=== PATIENT | male | born 1940 | race Caucasian/White ===

== ENCOUNTER → 2019-10-14 14:46 | Outpatient (BNVA) | payer MEDICARE, OTHER, SELFPAY | PROVIDERS: Family Provider Family Medicine; PCP Family Medicine; Visit Provider Internal Medicine Cardiovascular Disease | DX: I50.42 Chronic combined systolic (congestive) and diastolic (congestive) heart failure (principal); R06.02 Shortness of breath; I48.19 Other persistent atrial fibrillation; I42.0 Dilated cardiomyopathy; N18.3 Chronic kidney disease, stage 3 (moderate); I35.1 Nonrheumatic aortic (valve) insufficiency | CPT/HCPCS: 80048; 83880 ==

== ENCOUNTER → 2019-11-04 10:40 | Outpatient (BNVA) | payer MEDICARE, OTHER, SELFPAY | PROVIDERS: Family Provider Family Medicine; PCP Family Medicine; Visit Provider Internal Medicine Cardiovascular Disease | DX: I50.9 Heart failure, unspecified (principal); I48.91 Unspecified atrial fibrillation | CPT/HCPCS: 80048; 80061; 83880 ==

== ENCOUNTER → 2019-11-14 10:53 | Outpatient (BNVA) | payer MEDICARE, OTHER, SELFPAY | PROVIDERS: Family Provider Family Medicine; PCP Family Medicine; Visit Provider Internal Medicine Cardiovascular Disease | DX: I50.9 Heart failure, unspecified (principal); N18.9 Chronic kidney disease, unspecified | CPT/HCPCS: 80048; 83880 ==

== ENCOUNTER → 2020-03-11 16:43 | Outpatient (BNVA) | payer MEDICARE, OTHER, SELFPAY | PROVIDERS: Family Provider Family Medicine; PCP Family Medicine; Visit Provider Internal Medicine Cardiovascular Disease | DX: I48.19 Other persistent atrial fibrillation (principal); I42.0 Dilated cardiomyopathy; R06.02 Shortness of breath; I50.33 Acute on chronic diastolic (congestive) heart failure; N18.3 Chronic kidney disease, stage 3 (moderate); I35.1 Nonrheumatic aortic (valve) insufficiency | CPT/HCPCS: 80048; 83880 ==

== ENCOUNTER → 2020-05-07 09:25 | Outpatient (BNVA) | payer MEDICARE, OTHER, SELFPAY | PROVIDERS: Family Provider Family Medicine; PCP Family Medicine; Visit Provider Internal Medicine Cardiovascular Disease | DX: I42.0 Dilated cardiomyopathy (principal); I48.19 Other persistent atrial fibrillation; I50.42 Chronic combined systolic (congestive) and diastolic (congestive) heart failure; N18.3 Chronic kidney disease, stage 3 (moderate); I35.1 Nonrheumatic aortic (valve) insufficiency | CPT/HCPCS: 80048; 80061; 83880 ==

== ENCOUNTER 2020-06-03 12:37 | Outpatient (CLI) | payer MEDICARE, OTHER, SELFPAY ==
--- NOTE | 2020-06-03 13:30 | USCV_ITS ---
Raymond Smith Age: 80 Gender: M : 1940 Exam Date: 06/03/2020 13:34 Ordering Phys: Chris Olsen MD ([email or web address]) Technologist: Adriana Martini Exam Location: [facility] [place] Indication: CARDIOMYOPATHY BP: / HR: 64 Rhythm: Sinus Technical Quality: Adequate MEASUREMENTS (Male / Female) Normal Values 2D ECHO LV Ejection Fraction MOD 2C 49.9 % LV Ejection Fraction 2C AL 49.6 % LA Diameter 5.4 cm LA Width 4.3 cm LA Height 6.2 cm RA Width 4.4 cm RA Height 5.0 cm M-MODE LV Diastolic Diameter MM 7.5 cm 4.2 - 5.9 / 3.9 - 5.3 cm LV Systolic Diameter MM 4.7 cm LV Ejection Fraction MM Teich 66.3 % IVS Diastolic Thickness MM 1.2 cm 0.6 - 1.0 / 0.6 - 0.9 cm IVS Systolic Thickness MM 1.7 cm LVPW Diastolic Thickness MM 1.1 cm 0.6 - 1.0 / 0.6 - 0.9 cm LVPW Systolic Thickness MM 1.8 cm Aortic Annulus Diameter 4.3 cm LA Ao Ratio MM 1.3 MV E Point Septal Separation 1.2 cm DOPPLER AV Peak Velocity 147.0 cm/s LVOT Peak Velocity 92.0 cm/s MV Peak Velocity 89.0 cm/s MV Area PHT 7.3 cm squared Mitral E to A Ratio 5.2 MV E' Velocity 59.5 cm/s Mitral E to MV E' Ratio 14.2 Mitral E to LV E' Lateral Ratio 11.4 Mitral E to LV E' Septal Ratio 19.1 TR Peak Velocity 155.0 cm/s TR Peak Gradient 9.6 mmHg Right Atrial Pressure 3.0 mmHg Pulmonary Artery Systolic Pressu 12.6 mmHg PV Peak Velocity 82.0 cm/s RV Acceleration Time 0.1 s FINDINGS Left Ventricle Diffuse hypokinesia of the left ventricle with ejection fraction of 45% Right Ventricle Normal right ventricular size and systolic function. Right Atrium Mild to moderate right atrial lodgment Left Atrium Mild to moderate left atrial enlargement Mitral Valve Trace mitral valve regurgitation. Aortic Valve Moderate aortic valve regurgitation. Tricuspid Valve Mild tricuspid valve regurgitation. Pulmonic Valve No gross abnormalities noted Pericardium No pericardial effusion. Aorta Normal aortic annulus size. CONCLUSIONS Diffuse hypokinesia of the left ventricle with ejection fraction of 45%. Mild to moderate biatrial enlargement. Moderate aortic valve regurgitation. Mild tricuspid valve regurgitation. There is no pericardial effusion. There are no intracardiac masses. Compared to the previous study from 06/10/2019, there is improvement of the LV ejection fraction and possible normal LV size Dr Chris Olsen MD FACC (Electronically Signed) Final Date: 03 June 2020 19:32 S
== END 2020-06-03 12:38 | disposition home or self-care (01) ==
LOC: US 12:39
PROVIDERS: PCP Family Medicine; Visit Provider Internal Medicine Cardiovascular Disease
DX: I42.9 Cardiomyopathy, unspecified (principal); I08.2 Rheumatic disorders of both aortic and tricuspid valves
CPT/HCPCS: 93306

== ENCOUNTER → 2020-11-04 11:41 | Outpatient (BNVA) | payer MEDICARE, OTHER, SELFPAY | PROVIDERS: PCP Family Medicine; Visit Provider Internal Medicine Cardiovascular Disease | DX: I42.0 Dilated cardiomyopathy (principal); I50.42 Chronic combined systolic (congestive) and diastolic (congestive) heart failure; I48.91 Unspecified atrial fibrillation; I35.1 Nonrheumatic aortic (valve) insufficiency | CPT/HCPCS: 80048; 83880 ==

== ENCOUNTER → 2020-11-19 10:58 | Outpatient (BNVA) | payer MEDICARE, OTHER, SELFPAY | PROVIDERS: PCP Family Medicine; Visit Provider Internal Medicine Cardiovascular Disease | DX: I42.0 Dilated cardiomyopathy (principal); N18.30 Chronic kidney disease, stage 3 unspecified | CPT/HCPCS: 80048; 83880 ==

== ENCOUNTER 2021-08-18 16:34 | Emergency (ER) | payer MEDICARE, OTHER, SELFPAY ==
[2021-08-18 16:47] VITALS: BP 103/60; PULSE 90; RESP 18; TEMP 37.1; O2SAT 94; BMI 27.1
--- NOTE | 2021-08-18 16:54 | CTR_ITS ---
PROCEDURE INFORMATION: Exam: CT Head Without Contrast Exam date and time: 08/18/2021 4:54 PM Age: 81 years old Clinical indication: Altered mental status/memory loss; Confusion or disorientation TECHNIQUE: Imaging protocol: Computed tomography of the head without contrast. Radiation optimization: All CT scans at this facility use at least one of these dose optimization techniques: automated exposure control; mA and/or kV adjustment per patient size (includes targeted exams where dose is matched to clinical indication); or iterative reconstruction. COMPARISON: CT head wo con* [id number] 06/14/2015 1:59 PM RADIATION DOSE METRICS: Total DLP (mGy-cm): 1578.82 FINDINGS: Brain: No hemorrhage. Moderate diffuse cerebral atrophy and sequela of chronic small vessel ischemic disease. No mass effect. Cerebral ventricles: No ventriculomegaly. Paranasal sinuses: Visualized sinuses are unremarkable. No fluid levels. Mastoid air cells: Visualized mastoid air cells are well aerated. Bones/joints: Unremarkable. No acute fracture. Soft tissues: Unremarkable. CT/CT head wo con* [id number] IMPRESSION: 1. No acute intracranial abnormality. 2. Moderate diffuse cerebral atrophy and sequela of chronic small vessel ischemic disease.
[2021-08-18 18:58] LABS: Basophils % 0.1 %; Hematocrit 44.1 % (42.0-52.0); Hemoglobin 14.2 g/dL (11.7-16.6); Lymphocytes # 1.3 10^3/uL (0.8-4.8); Lymphocytes % 16.2 %; Mean Corpuscular HGB Conc 32.2 g/dL (30.0-36.0); Mean Corpuscular Hemoglobin 31.3 pg (28.0-34.0); Mean Corpuscular Volume 97.4 fl (80-94); Mean Platelet Volume 10.2 fL (7.4-10.4); Monocytes # 0.7 10^3/uL (0.2-0.9); Monocytes % 9.3 %; Nucleated Red Blood Cells % 0 %; Platelet Count 142 10^3/cmm (130-400); Red Blood Count 4.53 10^6/uL (4.1-5.3); Red Cell Distribution Width 12.9 % (12.1-15.1)
[2021-08-18 19:19] LABS: Alanine Aminotransferase 17 U/L (0-41); Albumin Level 3.6 g/dL (3.5-5.2); Alkaline Phosphatase 49 IU/L (40-130); Anion Gap 22.3 (5-19); Aspartate Amino Transferase 31 U/L (0-40); Blood Urea Nitrogen 35 mg/dL (8-23); Carbon Dioxide 21 mmol/L (22-29); Chloride 100 mmol/L (98-107); Globulin 3.2 g/dL (1.3-4.6); Glucose 86 mg/dL (65-115); Osmolality Calculated 295 mOsm/kg (285-295); Potassium 4.3 mmol/L (3.5-5.1); Sodium 139 mmol/L (136-145); Total Bilirubin 0.5 mg/dL (0.15-1.2); Total Protein 6.8 g/dL (6.6-8.7)
--- NOTE | 2021-08-18 20:23 | ECG_ITS ---
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 Measurements Intervals [place] Rate: 91 P: MT: QRS: 138 QRSD: 114 T: -19 QT: 347 QTc: 428 Interpretive Statements ATRIAL FIBRILLATION WITH ABERRANT CONDUCTION OR VENTRICULAR PREMATURE COMPLEXES POSSIBLE RIGHT VENTRICULAR HYPERTROPHY [SOME/ALL OF: PROMINENT R IN V1, LATE TRANSITION, RAD, YUE, SSS] ANTEROSEPTAL MYOCARDIAL INFARCTION , OF INDETERMINATE AGE [40+ ms Q WAVE IN V1-V4] Compared to ECG 07/29/2019 02:55:35 Ventricular premature complex(es) now present Aberrant conduction of supraventricular beat(s) now present Myocardial infarct finding now present Intraventricular conduction delay no longer present Electronically Signed On 08-19-2021 8:45:41 CERTIFIED HEARING INSTRUMENT DISPENSER by Norman Sheppard M.D. [id number]
--- NOTE | 2021-08-18 20:23 | XRR_ITS ---
PROCEDURE INFORMATION: Exam: XR Chest Exam date and time: 08/18/2021 8:23 PM Age: 81 years old Clinical indication: Shortness of breath; Additional info: SOB TECHNIQUE: Imaging protocol: XR of the chest. Views: 1 view. COMPARISON: CR Chest 1 [place] [id number] 07/29/2019 3:00 AM FINDINGS: Lungs: No consolidation. Pleural spaces: No pleural effusion. No pneumothorax. Heart/Mediastinum: Stable cardiomegaly. Bones/joints: Visualized osseous structures are intact. XR/XR chest 1V portable [id number] IMPRESSION: Stable exam, no acute findings.
[2021-08-18 20:39] LABS: Troponin(5th) Baseline 57 ng/L (0-15)
--- NOTE | 2021-08-18 20:42 | W.ED.WEAKNES ---
HPI - Weakness General: Chief complaint: Weakness Stated complaint: PULSE OF 29/WEAK/LOW O2 Time Seen by Provider: 08/18/21 20:12 Source: patient Mode of arrival: ambulatory Limitations: no limitations History of Present Illness: HPI Narrative: 81-year-old male states that he has been having sinus congestion and sinus pain over the last 5 to 7 days he states he gets a sinus infection every year and this feels the same. He denies any vomiting or diarrhea he said he has had some weakness started he has had confusion he denies that he states he just feels weak at times he is answering all my questions here appropriately. He denies any chest pain he has had a cough for 3 to 4 days. Associated symptoms: Denies chest pain, dysuria, easy bruising, nausea or vomiting Review of Systems Const: Reports: body aches Eyes: Denies: blurry vision or eye discomfort ENMT: Reports: nasal discharge; Denies: throat pain or dental pain Card: Denies: chest pain Resp: Reports: non-productive cough GI: Denies: abdominal pain, nausea, vomiting or diarrhea : Denies: dysuria Musc: Denies: neck pain or back pain Skin/Breast: Denies: rash Neuro: Reports: weakness in extremities Psych: Denies: depression Sujit/Lymph: Denies: easy bruising All/Imm: Denies: urticaria PFSH ED PFSH: Medical History Aortic regurgitation Atrial fibrillation Cardiomyopathy Chronic kidney disease Congestive heart failure Surgical History H/O hernia repair Family History Father CAD (coronary artery disease) AAA (abdominal aortic aneurysm) Brother Cancer Lung disease Other Hypertension Denies family history of Diabetes Clotting disorder Dementia Chronic kidney disease (CKD) Suicide Anesthesia complication Bleeding disorder Stroke Social History Smoking and tobacco status: never smoked Alcohol intake: never Physical Exam Const: COMMON NORMALS: no acute distress, patient oriented x3 and healthy appearing HENMT: COMMON NORMALS: normocephalic and atraumatic HEAD & SCALP: normocephalic and atraumatic Eye: COMMON NORMALS: Equal, round and reactive pupils present and EOMs intact bilaterally PUPIL: Yes Equal, round and reactive pupils present Neck/C-Spine: COMMON NORMALS: full ROM and supple Chest: COMMONS NORMALS: normal inspection of the chest and normal palpation of entire chest wall Resp: COMMON NORMALS: normal respiratory effort, No retractions, No use of accessory muscles and clear to auscultation bilaterally AUSCULTATION: clear to auscultation bilaterally Cardio: COMMON NORMALS: regular rate, regular rhythm and No murmurs present (Cardio) RATE: regular rate RHYTHM: regular rhythm GI: COMMON NORMALS: Normal to inspection, nondistended, normoactive bowel sounds present, Soft to palpation, non-tender and no masses PALPATION: Yes Soft to palpation Extremity: COMMON NORMALS: normal to inspection and full ROM Neuro: COMMON NORMALS: patient oriented x3, moves all extremities and no focal motor deficits Psych: COMMON NORMALS: mental status grossly normal, Normal thought process present and cooperative THOUGHT PROCESS: Normal thought process present Skin: COMMON NORMALS: no rashes or lesions noted and no wounds GENERAL SKIN EXAM: no rashes or lesions noted Course Vital Signs: Vital signs: Vital Signs Temperature 98.7 F 08/18/21 16:47 Pulse Rate 80 08/18/21 21:43 Respiratory Rate 22 H 08/18/21 21:43 Blood Pressure 86/53 08/18/21 21:43 Pulse Oximetry 93 08/18/21 21:43 MDM - Weakness MDM Narrative: Medical decision making narrative: Patient presents here with complaints sinusitis he also been having some weakness he is not confused here. Patient has some low blood pressure recommend IV fluids and offer him admission. He refused any IV did not want any more blood drawn states that he would just like his sinus infection treated and to go home he has no signs of a stroke and no confusion here we will start him on Keflex and he is return if worsening he understands agrees to plan. Lab Data: Labs: Lab Results 08/18/21 08/18/21 08/18/21 18:53 18:53 18:53 WBC 8.0 10^3/uL 10^3/ uL (4.0-10.0) RBC 4.53 10^6/uL 10^6 /uL (4.1-5.3) Hgb 14.2 g/dL g/dL (11.7-16.6) Hct 44.1 % % (42.0-52.0) MCV 97.4 fl H fl (80-94) MCH 31.3 pg pg (28.0-34.0) MCHC 32.2 g/dL g/dL (30.0-36.0) RDW 12.9 % % (12.1-15.1) Plt Count 142 10^3/cmm 10^3 /cmm (130-400) MPV 10.2 fL fL (7.4-10.4) Neut % (Auto) 74.0 % % Lymph % (Auto) 16.2 % % [place] % (Auto) 9.3 % % Eos % (Auto) 0.0 % % Baso % (Auto) 0.1 % % Neut # (Auto) 5.90 10^3/uL 10^3 /uL (1.8-7.7) Lymph # (Auto) 1.3 10^3/uL 10^3/ uL (0.8-4.8) [place] # (Auto) 0.7 10^3/uL 10^3/ uL (0.2-0.9) Eos # (Auto) 0.0 10^3/uL 10^3/ uL (0.0-0.8) Baso # (Auto) 0.0 10^3/uL 10^3/ uL (0.0-0.1) Nucleated RBC % (a uto) 0 % % Nucleated RBCs # 0.0 /100WBC /100W BC Sodium 139 mmol/L mmol/L (136-145) Potassium 4.3 mmol/L mmol/L (3.5-5.1) Chloride 100 mmol/L mmol/L (98-107) Carbon Dioxide 21 mmol/L L mmol/ L (22-29) Anion Gap 22.3 H (5-19) BUN 35 mg/dL H mg/dL (8-23) Creatinine 1.6 mg/dL H mg/dL (0.7-1.2) GFR Calculation Not Reportable Glucose 86 mg/dL mg/dL (65-115) Calculated Osmolal ity 295 mOsm/kg mOsm/ kg (285-295) Calcium 8.0 mg/dL L mg/dL (8.5-10.5) Total Bilirubin 0.5 mg/dL mg/dL (0.15-1.2) AST 31 U/L U/L (0-40) ALT 17 U/L U/L (0-41) Alkaline Phosphata se 49 IU/L IU/L (40-130) Troponin T Baselin e 57 ng/L H ng/L (0-15) Troponin T 120 Min veda Delta Troponin T Total Protein 6.8 g/dL g/dL (6.6-8.7) Albumin 3.6 g/dL g/dL (3.5-5.2) Globulin 3.2 g/dL g/dL (1.3-4.6) 08/18/21 20:40 WBC RBC Hgb Hct MCV MCH MCHC RDW Plt Count MPV Neut % (Auto) Lymph % (Auto) [place] % (Auto) Eos % (Auto) Baso % (Auto) Neut # (Auto) Lymph # (Auto) [place] # (Auto) Eos # (Auto) Baso # (Auto) Nucleated RBC % (a uto) Nucleated RBCs # Sodium Potassium Chloride Carbon Dioxide Anion Gap BUN Creatinine GFR Calculation Glucose Calculated Osmolal ity Calcium Total Bilirubin AST ALT Alkaline Phosphata se Troponin T Baselin e Troponin T 120 Min veda 56.57 ng/L H ng/L (0-15) Delta Troponin T -0.43 ABS# L ABS# (0-10) Total Protein Albumin Globulin Imaging Data^: CXR: Attestation: I personally reviewed and interpreted this imaging study as follows: Radiologist's impression: [address] [place] [id number] XRay Report Signed Patient: Raymond Smith Unit #: [id number] : 1940 Age/Sex: 81 / M ADM Date: 08/18/21 Loc: ER Room/Bed: Attending Dr: Ordering Provider/Ordering MD: Petar Valentino MD Date of Service: 08/18/21 Procedure(s): XR chest 1V portable [id number] Accession Number(s): [id number] Report Number: [id number] PROCEDURE INFORMATION: Exam: XR Chest Exam date and time: 08/18/2021 8:23 PM Age: 81 years old Clinical indication: Shortness of breath; Additional info: SOB TECHNIQUE: Imaging protocol: XR of the chest. Views: 1 view. COMPARISON: CR Chest 1 [place] [id number] 07/29/2019 3:00 AM FINDINGS: Lungs: No consolidation. Pleural spaces: No pleural effusion. No pneumothorax. Heart/Mediastinum: Stable cardiomegaly. Bones/joints: Visualized osseous structures are intact. XR/XR chest 1V portable [id number] IMPRESSION: Stable exam, no acute findings. Dictated By: Ryne Burrows DO Signed By: Ryne Burrows DO Signed Date/Time: 08/18/212109 DD/ 22 EKG Data^: EKG 1: Attestation: I personally reviewed and interpreted this EKG as follows: EKG interpretation date: 08/18/21 EKG interpretation time: 20:54 Interpretation: afib hr [address] or t wave abnormalities qrs 114 qtc 396 Discharge Plan Discharge Patient Disposition: Home Clinical Impression: Sinusitis Condition: Stable Prescriptions: New cephalexin 500 mg capsule 500 mg PO QID 7 Days Qty: 28 RF: 0 No Action montelukast [Singulair] 10 mg tablet 10 mg PO DAILY RF: 0 PreserVision AREDS [id number] capsule 1 cap PO DAILY RF: 0 paroxetine HCl [Paxil] 20 mg tablet 20 mg PO DAILY RF: 0 Entresto 24-26 mg tablet 2 tab PO BID Qty: 360 RF: 3 Eliquis 5 mg tablet 5 mg PO BID Qty: 180 RF: 3 furosemide 40 mg tablet 40 mg PO BID Qty: 180 RF: 3 metoprolol tartrate 25 mg tablet 12.5 mg PO BID Qty: 90 RF: 3 potassium chloride 10 mEq tablet extended release 10 meq PO DAILY Qty: 90 RF: 3 rosuvastatin [Crestor] 10 mg tablet 10 mg PO DAILY Qty: 30 RF: 5 spironolactone 25 mg tablet See Rx Instructions .ROUTE .COMPLEX Qty: 90 RF: 2 Discharge Orders: Discharge ED (Routine); Ordered 08/18/21 Ordered By: Petar Valentino Referrals: Pedro Wang MD [Primary Care Provider] - Discharge Diet: Advance as tolerated Discharge Activity: Resume usual activity Patient Instructions: Sinusitis (ED) Coding Level of Care Code ED Match Marker for Chg Fwd Exam Comprehensive
[2021-08-18] MEDS: dexamethasone 10 mg/mL INJ IM (20:50)
[2021-08-18] MEDS: cephALEXin 500 mg Capsule PO (21:04)
[2021-08-18 21:23] VITALS: BP 80/45; PULSE 84; RESP 18; O2SAT 94
[2021-08-18 21:24] LABS: Troponin 5 2HR 56.57 ng/L (0-15)
[2021-08-18 21:26] LABS: Troponin 5 2HR Delta -0.43 ABS# (0-10)
[2021-08-18 21:43] VITALS: BP 86/53; PULSE 80; RESP 22; O2SAT 93
== END 2021-08-18 21:40 | disposition home or self-care (01) ==
PROVIDERS: Nurse Practitioner Family; Emergency Provider Emergency Medicine; PCP Family Medicine
DX: J32.9 Chronic sinusitis, unspecified (principal); Z79.01 Long term (current) use of anticoagulants; I50.9 Heart failure, unspecified
CPT/HCPCS: 36415; 70450; 71045; 80053; 84484; 85025; 93005; 96372; 99283; J1100

== ENCOUNTER 2021-08-22 19:45 | Inpatient (IN) | payer MEDICARE, OTHER, SELFPAY ==
[2021-08-22 19:53] VITALS: PULSE 120; RESP 24; TEMP 39.5; O2SAT 80; BMI 27.7
--- NOTE | 2021-08-22 20:14 | XRR_ITS ---
PROCEDURE INFORMATION: Exam: XR Chest Exam date and time: 08/22/2021 8:14 PM Age: 81 years old Clinical indication: Dyspnea; Additional info: SOB TECHNIQUE: Imaging protocol: XR of the chest. Views: 1 view. Total images: 1 COMPARISON: CR (CHEST, ) 08/18/2021 8:46 PM FINDINGS: Lungs: No visible active interstitial or alveolar airspace disease. Pleural spaces: Unremarkable. No pleural effusion. No pneumothorax. Heart/Mediastinum: Cardiac structures and configuration with cardiomegaly. Tortuous thoracic aorta which can be seen in hypertensive cardiovascular disease. Bones/joints: Unremarkable. Other findings: Patient rotated to the right. XR/XR chest 1V portable [id number] IMPRESSION: Nonacute.
--- NOTE | 2021-08-22 20:16 | ECG_ITS ---
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 Measurements Intervals [place] Rate: 110 P: AR: QRS: -15 QRSD: 118 T: -13 QT: 315 QTc: 427 Interpretive Statements ATRIAL FIBRILLATION WITH RAPID VENTRICULAR RESPONSE MODERATE INTRAVENTRICULAR CONDUCTION DELAY [110+ ms QRS DURATION] NONSPECIFIC ST & T-WAVE ABNORMALITY Compared to ECG 08/18/2021 20:54:30 Intraventricular conduction delay now present T-wave abnormality now present Ventricular premature complex(es) no longer present Aberrant conduction of supraventricular beat(s) no longer present Atrial abnormality no longer present Myocardial infarct finding no longer present Electronically Signed On 08-23-2021 15:33:24 FEDERAL APPELLATE CLERK by Mattie Mallory M.D. [id number]
[2021-08-22] MEDS: ipratropium-albuterol 3 mL Neb INHALATION (20:51)
[2021-08-22 20:56] LABS: ABG PCO2 25.7 mmHg (35-45); ABG PH Result 7.54 (7.35-7.45); Arterial Blood Gas Hematocrit 42.5 % (42-52); Base Excess ABG 0.8 mmol/L (-2.0-2.0); Blood Gas Allen Test Pos; Blood Gas Sample Site Radial, right; Blood Gas Sample Type Arterial; HGB O2 Sat 87.9 % (95-100); Methemoglobin 0.9 % (0.4-1.5); Oxygen Device NC; PO2 ABG 51.4 mmHg (80.0-100.0); Total Hemoglobin 13.9 g/dL (14-18)
[2021-08-22 21:05] LABS: Basophils % 0.1 %; Hematocrit 38.4 % (42.0-52.0); Hemoglobin 12.8 g/dL (11.7-16.6); Lymphocytes # 0.5 10^3/uL (0.8-4.8); Lymphocytes % 3.6 %; Mean Corpuscular HGB Conc 33.3 g/dL (30.0-36.0); Mean Corpuscular Hemoglobin 31.3 pg (28.0-34.0); Mean Corpuscular Volume 93.9 fl (80-94); Mean Platelet Volume 10.8 fL (7.4-10.4); Monocytes # 0.6 10^3/uL (0.2-0.9); Monocytes % 4.4 %; Neutrophils # 12.99 10^3/uL (1.8-7.7); Neutrophils % 91.5 %; Nucleated Red Blood Cells % 0 %; Platelet Count 144 10^3/cmm (130-400); Red Blood Count 4.09 10^6/uL (4.1-5.3); Red Cell Distribution Width 12.8 % (12.1-15.1); White Blood Count 14.2 10^3/uL (4.0-10.0)
--- NOTE | 2021-08-22 21:09 | ED_ITS ---
HPI - SOB/Dyspnea General: Chief Complaint: Shortness of Breath/Dyspnea Stated Complaint: Sinus Infection\Pain\Breathing Rapid to Shallow Time Seen by Provider: 08/22/21 20:05 History of Present Illness: HPI Narrative: 81-year-old male who says he has been sick since 08/05. He has been seen a couple of times as an outpatient, and once in the ER. On his exam in the ER, he refused IV and testing stated that he has sinusitis and wanted antibiotics. He was given this. He is become increasingly short of breath over the past several days. He is generally weak. His daughter states that he is mind has been a little less sharp as well. On presentation, his pulse ox was 80% on room air in triage, his respiratory rate is up. He has been coughing up some yellow sputum. He does not usually use oxygen. They had not noticed a fever before today MD elicited complaint: shortness of breath and cough Pertinent past history: congestive heart failure Onset (ago): day(s) Timing: intermittent Severity: moderate Exacerbating factors: lying flat and coughing Relieving factors: oxygen Associated symptoms: Reports chest congestion, cough and fever(s); Deny chest pain, nausea, syncope or vomiting Review of Systems Const: Reports: fever(s) Card: Reports: edema; Denies: chest pain or syncope Resp: Reports: dyspnea, productive cough and chest congestion GI: Denies: nausea, vomiting or diarrhea Neuro: Reports: weakness in extremities; Denies: headache(s) [facility] ED PFSH: Medical History Aortic regurgitation Atrial fibrillation Cardiomyopathy Chronic kidney disease Congestive heart failure Surgical History H/O hernia repair Family History Father CAD (coronary artery disease) AAA (abdominal aortic aneurysm) Brother Cancer Lung disease Other Hypertension Denies family history of Diabetes Clotting disorder Dementia Chronic kidney disease (CKD) Suicide Anesthesia complication Bleeding disorder Stroke Social History Smoking and tobacco status: never smoked Alcohol intake: never Physical Exam Const: GENERAL APPEARANCE: cooperative and ill appearing ORIENTATION/CONSCIOUSNESS: Yes awake, Yes oriented to person, Yes oriented to place and Yes oriented to time HENMT: COMMON NORMALS: normocephalic and atraumatic HEAD & SCALP: normocephalic and atraumatic Eye: COMMON NORMALS: EOMs intact bilaterally and no scleral icterus Chest: COMMONS NORMALS: normal inspection of the chest Resp: EFFORT & INSPECTION: Yes tachypneic AUSCULTATION: rales (bilateral ) Cardio: COMMON NORMALS: Peripheral pulses 2+ throughout RHYTHM: abnormal rhythm irregularly irregular PERIPHERAL PULSES: Peripheral pulses 2+ thr oughout GI: COMMON NORMALS: Normal to inspection, nondistended, normoactive bowel sounds present and Soft to palpation PALPATION: Yes Soft to palpation Neuro: SENSORIUM/ORIENTATION: Yes oriented to person, Yes oriented to place and Yes oriented to time Course Vital Signs: Vital signs: Vital Signs Temperature 103.1 F H 08/22/21 19:53 Pulse Rate 122 H 08/22/21 23:17 Respiratory Rate 21 H 08/22/21 23:17 Blood Pressure 63/47 08/22/21 23:17 Pulse Oximetry 89 L 08/22/21 23:17 MDM - SOB/Dyspnea MDM Narrative: Medical decision making narrative: 41-year-old male short of breath. Chest x-ray shows bilateral hazy infiltrates, although radiology is read as negative. His white blood cell count is 14. His creatinine is up above baseline at 2. His D-dimer is only minimally elevated, and age-adjusted would be normal. He is profoundly hypoxic now however. He does not usually use oxygen. Currently is on heated high flow the saturation 92%. His heart rate is around 100. Blood pressure is 90 over 50s, which the patient states this is normal. That he does have a history of heart failure. He will be admitted for PCR positive COVID-19 pneumonia with hypoxic respiratory failure and atrial fibrillation. Lab Data: Labs: Lab Results 08/22/21 08/22/21 08/22/21 20:14 20:50 20:50 WBC 14.2 10^3/uL H 10 ^3/uL (4.0-10.0) RBC 4.09 10^6/uL L 10 ^6/uL (4.1-5.3) Hgb 12.8 g/dL g/dL (11.7-16.6) Hct 38.4 % L % (42.0-52.0) MCV 93.9 fl fl (80-94) MCH 31.3 pg pg (28.0-34.0) MCHC 33.3 g/dL g/dL (30.0-36.0) RDW 12.8 % % (12.1-15.1) Plt Count 144 10^3/cmm 10^3 /cmm (130-400) MPV 10.8 fL H fL (7.4-10.4) Neut % (Auto) 91.5 % % Lymph % (Auto) 3.6 % % Centre % (Auto) 4.4 % % Eos % (Auto) 0.0 % % Baso % (Auto) 0.1 % % Neut # (Auto) 12.99 10^3/uL H 1 0^3/uL (1.8-7.7) Lymph # (Auto) 0.5 10^3/uL L 10^ 3/uL (0.8-4.8) Centre # (Auto) 0.6 10^3/uL 10^3/ uL (0.2-0.9) Eos # (Auto) 0.0 10^3/uL 10^3/ uL (0.0-0.8) Baso # (Auto) 0.0 10^3/uL 10^3/ uL (0.0-0.1) Nucleated RBC % (a uto) 0 % % Nucleated RBCs # 0.0 /100WBC /100W BC D-Dimer 0.69 ug/mIFEU H u g/mIFEU (0-0.59) Specimen Type Arterial Sample Site Radial, right ABG pH 7.54 H (7.35-7.45) ABG pCO2 25.7 mmHg L mmHg (35-45) ABG pO2 51.4 mmHg L mmHg (80.0-100.0) ABG HCO3 22.0 mmol/L mmol/ L (22-26) ABG Base Excess 0.8 mmol/L mmol/L (-2.0-2.0) Yung Test Pos Hematocrit 42.5 % % (42-52) Hgb O2 Saturation 87.9 % L % (95-100) Carboxyhemoglobin 1.0 %THgb %THgb (0.4-20.1) Methemoglobin 0.9 % % (0.4-1.5) Total Hemoglobin 13.9 g/dL L g/dL (14-18) O2 Delivery Device Nc O2 Liters/Min 5.0 % % Glazing Department Supervisor ID [email or web address] Sodium Potassium Chloride Carbon Dioxide Anion Gap BUN Creatinine GFR Calculation Glucose Calculated Osmolal ity Lactic Acid Calcium Total Bilirubin AST ALT Alkaline Phosphata se Troponin T Baselin e C-Reactive Protein NT-Pro-B Natriuret Pep Total Protein Albumin Globulin Procalcitonin Coronavirus 229E ( PCR) SARS-CoV-2 (PCR) 08/22/21 08/22/21 08/22/21 20:50 20:50 20:50 WBC RBC Hgb Hct MCV MCH MCHC RDW Plt Count MPV Neut % (Auto) Lymph % (Auto) Centre % (Auto) Eos % (Auto) Baso % (Auto) Neut # (Auto) Lymph # (Auto) Centre # (Auto) Eos # (Auto) Baso # (Auto) Nucleated RBC % (a uto) Nucleated RBCs # D-Dimer Specimen Type Sample Site ABG pH ABG pCO2 ABG pO2 ABG HCO3 ABG Base Excess Yung Test Hematocrit Hgb O2 Saturation Carboxyhemoglobin Methemoglobin Total Hemoglobin O2 Delivery Device O2 Liters/Min Glazing Department Supervisor ID Sodium 138 mmol/L mmol/L (136-145) Potassium 4.5 mmol/L mmol/L (3.5-5.1) Chloride 102 mmol/L mmol/L (98-107) Carbon Dioxide 21 mmol/L L mmol/ L (22-29) Anion Gap 19.5 H (5-19) BUN 54 mg/dL H mg/dL (8-23) Creatinine 2.0 mg/dL H mg/dL (0.7-1.2) GFR Calculation Not Reportable Glucose 186 mg/dL H mg/dL (65-115) Calculated Osmolal ity 306 mOsm/kg H mOs m/kg (285-295) Lactic Acid 2.0 mmol/L mmol/L (0.5-2.2) Calcium 7.6 mg/dL L mg/dL (8.5-10.5) Total Bilirubin 0.8 mg/dL mg/dL (0.15-1.2) AST 89 U/L H U/L (0-40) ALT 63 U/L H U/L (0-41) Alkaline Phosphata se 44 IU/L IU/L (40-130) Troponin T Baselin e 72 ng/L H ng/L (0-15) C-Reactive Protein 166.8 mg/L H mg/L (0.0-4.9) NT-Pro-B Natriuret Pep 1574 pg/mL H pg/m L (0-450) Total Protein 5.5 g/dL L g/dL (6.6-8.7) Albumin 3.2 g/dL L g/dL (3.5-5.2) Globulin 2.3 g/dL g/dL (1.3-4.6) Procalcitonin 0.50 ng/mL ng/mL (0-0.5) Coronavirus 229E ( PCR) SARS-CoV-2 (PCR) 08/22/21 21:08 WBC RBC Hgb Hct MCV MCH MCHC RDW Plt Count MPV Neut % (Auto) Lymph % (Auto) Centre % (Auto) Eos % (Auto) Baso % (Auto) Neut # (Auto) Lymph # (Auto) Centre # (Auto) Eos # (Auto) Baso # (Auto) Nucleated RBC % (a uto) Nucleated RBCs # D-Dimer Specimen Type Sample Site ABG pH ABG pCO2 ABG pO2 ABG HCO3 ABG Base Excess Yung Test Hematocrit Hgb O2 Saturation Carboxyhemoglobin Methemoglobin Total Hemoglobin O2 Delivery Device O2 Liters/Min Glazing Department Supervisor ID Sodium Potassium Chloride Carbon Dioxide Anion Gap BUN Creatinine GFR Calculation Glucose Calculated Osmolal ity Lactic Acid Calcium Total Bilirubin AST ALT Alkaline Phosphata se Troponin T Baselin e C-Reactive Protein NT-Pro-B Natriuret Pep Total Protein Albumin Globulin Procalcitonin Coronavirus 229E ( PCR) Not detected (NOT DETECT) SARS-CoV-2 (PCR) Detected A (NOT DETECT) Discharge Plan Discharge Patient Disposition: Admitted As Inpatient Clinical Impression: Pneumonia due to 2019-nCoV Respiratory failure Qualifiers: Chronicity: acute Respiratory failure complication: hypoxia Qualified Code(s): J96.01 - Acute respiratory failure with hypoxia Condition: Fair Coding Level of Care Code ED [facility] for [facility] Fwd Exam Detailed
[2021-08-22 21:19] LABS: D Dimer 0.69 ug/mIFEU (0-0.59)
[2021-08-22 21:26] LABS: Troponin(5th) Baseline 72 ng/L (0-15)
[2021-08-22 21:36] LABS: NT Pro B Type Natriuretic Pept 1574 pg/mL (0-450)
[2021-08-22 21:47] LABS: Alanine Aminotransferase 63 U/L (0-41); Albumin Level 3.2 g/dL (3.5-5.2); Alkaline Phosphatase 44 IU/L (40-130); Anion Gap 19.5 (5-19); Aspartate Amino Transferase 89 U/L (0-40); Blood Urea Nitrogen 54 mg/dL (8-23); C Reactive Protein 166.8 mg/L (0.0-4.9); Calcium 7.6 mg/dL (8.5-10.5); Carbon Dioxide 21 mmol/L (22-29); Chloride 102 mmol/L (98-107); Globulin 2.3 g/dL (1.3-4.6); Glucose 186 mg/dL (65-115); Osmolality Calculated 306 mOsm/kg (285-295); Potassium 4.5 mmol/L (3.5-5.1); Sodium 138 mmol/L (136-145); Total Bilirubin 0.8 mg/dL (0.15-1.2); Total Protein 5.5 g/dL (6.6-8.7)
[2021-08-22 22:07] VITALS: BP 78/46; PULSE 113; RESP 27; O2SAT 85
--- NOTE | 2021-08-22 22:16 | ECG_ITS ---
[facility] Test Date: 2021-08-22 Pat Name: Raymond Smith Department: Room: Gender: Male Manager Data: : 1940 Requested By: Neri Chen Order Number: [id number] Estuardo MD: Mattie Mallory M.D. Measurements Intervals [place] Rate: 115 P: [place]: QRS: -14 QRSD: 126 T: -15 QT: 328 QTc: 455 Interpretive Statements ATRIAL FIBRILLATION WITH RAPID VENTRICULAR RESPONSE MODERATE INTRAVENTRICULAR CONDUCTION DELAY [110+ ms QRS DURATION] NONSPECIFIC ST & T-WAVE ABNORMALITY ABNORMAL RHYTHM ECG Compared to ECG 08/22/2021 20:48:46 No significant changes Electronically Signed On 08-23-2021 16:55:23 LABOR OPERATOR by Mattie Mallory M.D. [id number]
[2021-08-22] MEDS: cefTRIAXone 1,000 MG in sodium chloride 0.9% (plus) 50 ML 100 MG IV (22:28)
[2021-08-22] MEDS: sodium chloride 0.9% 1,000 ML 999 ML IV (22:42)
[2021-08-22 23:00] LABS: Adenovirus Not Detected (NOT DETECT); Chlamydia Pneumoniae Not Detected (NOT DETECT); Coronavirus 229E,HKU1,NL63,OC4 Not Detected (NOT DETECT); Human Metapneumovirus Not Detected (NOT DETECT); Human Rhinovirus/Enterovirus Not Detected (NOT DETECT); Influenza A Not Detected (NOT DETECT); Influenza A H1 Not Detected (NOT DETECT); Influenza A H1-2009 Not Detected (NOT DETECT); Influenza A H3 Not Detected (NOT DETECT); Influenza B Not Detected (NOT DETECT); Mycoplasma Pneumoniae Not Detected (NOT DETECT); Parainfluenza Virus Type 1 Not Detected (NOT DETECT); Parainfluenza Virus Type 2 Not Detected (NOT DETECT); Parainfluenza Virus Type 3 Not Detected (NOT DETECT); Parainfluenza Virus Type 4 Not Detected (NOT DETECT); Respiratory Syncytial Virus A Not Detected (NOT DETECT); Respiratory Syncytial Virus B Not Detected (NOT DETECT); SARS-COV-2 Detected (NOT DETECT)
[2021-08-22 23:03] VITALS: PULSE 102; RESP 20; O2SAT 93
[2021-08-22 23:17] VITALS: BP 63/47; PULSE 122; RESP 21; O2SAT 89
[2021-08-22 23:25] LABS: Troponin 5 2HR 70.84 ng/L (0-15)
[2021-08-22 23:33] LABS: Troponin 5 2HR Delta -1.16 ABS# (0-10)
[2021-08-22 23:38] VITALS: BP 91/58; PULSE 101; RESP 23; O2SAT 94
--- NOTE | 2021-08-22 23:50 | P.HP_ITS ---
Providers/Chief Complaint Admitting Physician: Caroline Diaz Primary Care Provider: Pedro Wang MD Chief Complaint: Sinus Infection\Pain\Breathing Rapid to Shallow History of Present Illness 81-year-old male with a past medical history significant for chronic stage 3 kidney disease, congestive heart failure with last known EF of 45% in 05/2020, valvular heart disease with prior moderate aortic regurgitation, proxsysmal atrial fibrillation on eliquis/entresto who presented to ER with shortness of breath. Progressively worsening for the past month. He was seen on 08/18 for sim ilar complaint in addition to suspected sinusitis which was treated with antibiotics. No reported fever, chills, nausea or vomiting. No chest pain. Upon arrival to ER Laboratory workup showed a WBC of 14.2, hemoglobin 12.8, hematocrit 30.4 and platelet count of 144. D-dimer was elevated at 0.69. A rterial blood gases showed pH of 7.54, pCO2 25.7, PO2 51.4 and bicarb of 22.Sodium 138, potassium 4.5, chloride 102 V car 21, BUN 54 and creatinine of 2.0. Prior creatinine was noted to be 1.6 on 08/18. Troponin T baseline 72 with repeat of 70 at 2hr. ProBNP of 1574. CRP of 166. Procalcitonin negative. COVID- 19 PCR was prositive. Chest x-ray did not show any evidence of acute abnormality. Patient was noted to be in respiratory distress and hypoxic with o2 sat in 80s on arrival. He was started on HFNC 60L with 100 Fio2. Review of Systems General: Reports: 10 or more systems reviewed and unremarkable except in HPI and below Medications/Allergies Home Medications Medication Instructions Recorded Confirmed Last Taken Type montelukast 10 mg tablet 10 mg PO DAILY 10/14/19 03/24/21 Unknown History vitamins A,C,R-rlfk-ymnrqu 14,320 1 cap PO DAILY cap 10/14/19 03/24/21 Unknown History unit-226 mg-200 unit capsule paroxetine HCl 20 mg tablet 20 mg PO DAILY tab 03/24/21 03/24/21 Unknown History sacubitril 24 mg-valsartan 26 mg 2 tab PO BID #360 tab 06/04/21 Unknown Rx tablet apixaban 5 mg tablet 5 mg PO BID #180 tab 06/07/21 Unknown Rx furosemide 40 mg tablet 40 mg PO BID #180 tab 06/07/21 Unknown Rx metoprolol tartrate 25 mg tablet 12.5 mg PO BID #90 tab 06/07/21 Unknown Rx potassium chloride 10 mEq 10 meq PO DAILY #90 tab 06/07/21 Unknown Rx tablet,extended release rosuvastatin 10 mg tablet 10 mg PO DAILY #30 tab 06/07/21 Unknown Rx spironolactone 25 mg tablet See Rx Instructions .ROUTE 07/19/21 Unknown Rx .COMPLEX #90 tab cephalexin 500 mg PO QID 7 Days #28 cap 08/18/21 Unknown Rx Allergies Allergy/AdvReac Type Severity Reaction Status Date / Time quinine Allergy Unknown unknown Verified 08/23/21 00:34 Sulfa (Sulfonamide Allergy Unknown unknown Verified 08/23/21 00:34 Antibiotics) Tetracyclines Allergy Unknown unknown Verified 08/23/21 00:34 PFSH Acute PFSH: Medical History Aortic regurgitation Atrial fibrillation Cardiomyopathy Chronic kidney disease Congestive heart failure Surgical History H/O hernia repair Family History Father CAD (coronary artery disease) AAA (abdominal aortic aneurysm) Brother Cancer Lung disease Other Hypertension Denies family history of Diabetes Clotting disorder Dementia Chronic kidney disease (CKD) Suicide Anesthesia complication Bleeding disorder Stroke Social History Smoking and tobacco status: never smoked Alcohol intake: never Vitals/I&O/Wt Last Vital Signs Temp 98.2 F 08/23/21 04:00 Pulse 89 08/23/21 04:00 Resp 23 H 08/23/21 04:00 BP 95/56 08/23/21 04:00 Pulse Ox 89 L 08/23/21 04:00 08/22/21 08/22/21 08/23/21 14:59 22:59 06:59 Intake Total 1370 / 1370 Balance 1370 / 1370 Weight last 48 hrs Weight 109.905 kg Weight 108.862 kg Weight 108.862 kg Physical Exam Narrative: EXAM NARRATIVE: General : alert, awake, on HFNC HEENT; Grossly unremarkable CVS; RRR Chest: mild labored respiration Abd; soft,NT,ND Ext No edema Data : 08/22/21 20:50 08/22/21 20:50 Micro: Microbiology 08/22/21 22:25 Blood Culture - Preliminary Blood SPECIMEN COLLECTED 08/22/21 20:50 Blood Culture - Preliminary Blood SPECIMEN COLLECTED A&P Assessment and plan (1) COVID-19 virus infection: Status: Acute (2) Acute hypoxemic respiratory failure: Status: Acute (3) Atrial fibrillation: Status: Acute Qualifiers: Atrial fibrillation type: other persistent Qualified Code(s): I48.19 - Other persistent atrial fibrillation (4) Aortic regurgitation: Status: Acute Qualifiers: Cardiac valve disease etiology: nonrheumatic Qualified Code(s): I35.1 - Nonrheumatic aortic (valve) insufficiency (5) Chronic kidney disease: Status: Acute Qualifiers: Chronic kidney disease stage: stage 3 (moderate) Qualified Code(s): N18.3 - Chronic kidney disease, stage 3 (moderate) Additional A&P Information Acute Hypoxemic Respiratory failure due to COVID-19 PO2 51.4, Labored respiration, on HFNC 60L flow - 100% Wean as tolerated Chest -xray no acute finding Decadron 6mg IV daily Repeat chest-ray in am Consider pulmonary consult May consider Lasix PRN if renal function stable Procalcitonin negative Monitor off abx for now Acute on chronic stage 3 kidney disease No clear baseline, 1.6 on 08/18 Now increased to 2.0 Repeat BMP in am Monitor u/o Renal dosing Paroxysmal Atrial Fibrillation Resume Eliquis 5 mg PO BID Holding entresto - due to renal failure Monitor on telemetry Additional Medical Problems Ch. Systolic HF - Last known EF 45% Moderate Aortic Regurgitation Anxiety / Depression Hyperlipidemia DVT ppx Eliquis 5 mg PO BID Attestations Medical Necessity Statement*: Anticiapte over 2 midnight stay in hospital for eval and treatment Time Spent in Patient Care: Greater than 35 minutes (>than 50% of time spent in counselling and/or direct pt care on unit) . Coding Level of Care Code Acute Investigative Research Specialist for Chg Fwd Diagnoses COVID-19 virus infection U07.1 Acute hypoxemic respiratory failure J96.01 Atrial fibrillation I48.19 Atrial fibrillation type: other persistent Aortic regurgitation I35.1 Cardiac valve disease etiology: nonrheumatic Chronic kidney disease N18.3 Chronic kidney disease stage: stage 3 (moderate)
[2021-08-23] VITALS (44 sets, daily range): BP systolic 76–120; BP diastolic 41–64; PULSE 62–108; RESP 11–34; TEMP 36.6–37.2; O2SAT 85–94; BMI 27.7
--- NOTE | 2021-08-23 02:16 | ECG_ITS ---
[facility] Test Date: 2021-08-23 Pat Name: Raymond Smith Department: Room: 257 Gender: Male Grapple Skidder Operator: : 1940 Requested By: Neri Chen Order Number: [id number] Estuardo MD: Mattie Mallory M.D. Measurements Intervals [place] Rate: 96 P: [place]: QRS: -7 QRSD: 124 T: 32 QT: 363 QTc: 461 Interpretive Statements ATRIAL FIBRILLATION MODERATE INTRAVENTRICULAR CONDUCTION DELAY [110+ ms QRS DURATION] NONSPECIFIC ST & T-WAVE ABNORMALITY Compared to ECG 08/22/2021 21:55:01 No significant changes Electronically Signed On 08-23-2021 16:54:49 KICKBOXING INSTRUCTOR by Mattie Mallory M.D. [id number]
[2021-08-23 04:36] LABS: Troponin 5 6HR 55.86 ng/L (0-15); Troponin 5 6HR Delta -16.14 ng/L (0-12)
[2021-08-23] MEDS: dexamethasone 10 mg/mL INJ 6 MG IVP (05:49)
--- NOTE | 2021-08-23 07:42 | PC.RESP ---
PT is refusing Bipap and Vent
--- NOTE | 2021-08-23 08:50 | PC.NURSE ---
Patient expressed wishes to RT Mario that he did not want to be intubated or put on bipap. This was verified by this RN. Additionally, asked the patient if he were to stop breathing or his heart were to stop if he wanted CPR. Patient states take to my caregiver. This RN inquired who that was and patient states . Called and explained patient is currently on 60 L/100% and his wishes for to be called. stated if it was that urgent to call . is not consulted or on patient's contact list. Person to contact was daughter, Sapna who was called and this information was relayed to her as well. She states she would call her father and talk to him.
[2021-08-23] MEDS: pantoprazole DR 40 mg Tablet PO (09:04)
[2021-08-23] MEDS: PARoxetine 20 mg Tablet PO (09:04)
[2021-08-23] MEDS: apixaban 5 mg Tablet PO ×2 (09:04→18:09)
[2021-08-23] MEDS: FUROsemide 10 mg/mL SDV 4mL 40 MG IVP ×2 (09:04→20:38)
[2021-08-23] MEDS: ipratropium-albuterol 3 mL Neb INHALATION ×3 (09:31→20:02)
[2021-08-23 10:38] LABS: Basophils % 0.1 %; Hematocrit 36.1 % (42.0-52.0); Hemoglobin 12.1 g/dL (11.7-16.6); Lymphocytes # 0.4 10^3/uL (0.8-4.8); Lymphocytes % 2.9 %; Mean Corpuscular HGB Conc 33.5 g/dL (30.0-36.0); Mean Corpuscular Hemoglobin 31.3 pg (28.0-34.0); Mean Corpuscular Volume 93.3 fl (80-94); Mean Platelet Volume 10.8 fL (7.4-10.4); Monocytes # 0.5 10^3/uL (0.2-0.9); Monocytes % 3.3 %; Neutrophils # 13.01 10^3/uL (1.8-7.7); Neutrophils % 93.3 %; Nucleated Red Blood Cells % 0 %; Platelet Count 145 10^3/cmm (130-400); Red Blood Count 3.87 10^6/uL (4.1-5.3); Red Cell Distribution Width 13.1 % (12.1-15.1); White Blood Count 13.9 10^3/uL (4.0-10.0)
[2021-08-23 11:08] LABS: Alanine Aminotransferase 76 U/L (0-41); Albumin Level 2.8 g/dL (3.5-5.2); Alkaline Phosphatase 42 IU/L (40-130); Anion Gap 15.2 (5-19); Aspartate Amino Transferase 94 U/L (0-40); Blood Urea Nitrogen 53 mg/dL (8-23); Calcium 7.7 mg/dL (8.5-10.5); Carbon Dioxide 21 mmol/L (22-29); Chloride 106 mmol/L (98-107); Globulin 2.9 g/dL (1.3-4.6); Glucose 171 mg/dL (65-115); Magnesium 1.9 mg/dL (1.7-2.3); Osmolality Calculated 304 mOsm/kg (285-295); Potassium 4.2 mmol/L (3.5-5.1); Sodium 138 mmol/L (136-145); Total Bilirubin 0.6 mg/dL (0.15-1.2); Total Protein 5.7 g/dL (6.6-8.7)
[2021-08-23 11:12] LABS: Procalcitonin 0.59 ng/mL (0-0.5)
[2021-08-23 12:03] LABS: Glucose Point of Care 174 mg/dL (70-110)
[2021-08-23] MEDS: insulin lispro 100 unit/1 mL SUBCUT ×2 (12:37→18:14)
--- NOTE | 2021-08-23 15:57 | PM.PN ---
Subjective Subjective: Interval history: Initially the patient refused BiPAP. However after discussions with me he agreed with BiPAP. Currently feels a little better. Reports shortness of breath and cough. No chills. No nausea or vomiting. No diarrhea. No chest pain. No hemoptysis Medications: Reviewed: Yes Medication Review Details: Generic Name Dose Route Start Last Admin Trade Name Freq PRN Reason Stop Dose Admin Albuterol/Ipratrop ium 3 ml 08/23/21 09:00 08/23/21 15:19 Ipratropium-Albu terol 3 Ml Neb INHALATION 3 ml Q6H.RESPIRATORY S CH Administration Apixaban 5 mg 08/23/21 09:00 08/23/21 09:04 Apixaban 5 Mg Ta blet PO 5 mg BID ELIO Administration Dexamethasone 6 mg 08/23/21 05:15 08/23/21 05:49 Dexamethasone 10 Mg/Ml Inj IVP 6 mg Q24H ELIO Administration Furosemide 40 mg 08/23/21 08:30 08/23/21 09:04 Furosemide 10 Mg /Ml Sdv 4ml IVP 40 mg Q12H ELIO Administration Insulin Human Lisp ro 0 unit 08/23/21 12:00 08/23/21 12:37 Insulin Lispro 1 00 Unit/1 Ml SUBCUT 4 unit TIDWM ELIO Administration Protocol Pantoprazole Sodiu m 40 mg 08/23/21 09:00 08/23/21 09:[address] 40 Mg Tablet PO 40 mg DAILY ELIO Administration Paroxetine HCl 20 mg 08/23/21 09:00 08/23/21 09:04 Paroxetine 20 Mg Tablet PO 20 mg DAILY ELIO Administration Vitals/I&O/Wt Last Vital Signs Temp 97.8 F 08/23/21 11:56 Pulse 91 08/23/21 15:30 Resp 26 H 08/23/21 15:19 BP 96/54 08/23/21 11:56 Pulse Ox 89 L 08/23/21 15:19 08/23/21 08/23/21 08/23/21 06:59 14:59 22:59 Intake Total 1610 / 1610 720 / 720 Output Total 200 / 200 Balance 1610 / 1610 520 / 520 Weight last 48 hrs Weight 109.905 kg Weight 108.862 kg Weight 108.862 kg Physical Exam Narrative: EXAM NARRATIVE: Awake alert and oriented. Moderate distress secondary to shortness of breath and discomfort with the oxygen delivery system. Seems to be pretty anxious. Responses are adequate. Skin is warm and dry. Moist mucous membranes Eyes PERRL, extraocular muscles are intact Neck supple. No JVD Lungs tachypnea is present. No accessory muscle use. No crackles or wheezes. Heart S1, S2, regular Abdomen is soft, nontender, bowel sounds are present Extremities trace edema, no cyanosis, no calf tenderness bilaterally Neuro examination is nonfocal Data : 08/23/21 10:00 08/23/21 10:00 Other Labs: Laboratory Results WBC 13.9 10^3/uL (4.0-10.0) H 08/23/21 10:00 RBC 3.87 10^6/uL (4.1-5.3) L 08/23/21 10:00 Hgb 12.1 g/dL (11.7-16.6) 08/23/21 10:00 Hct 36.1 % (42.0-52.0) L 08/23/21 10:00 MCV 93.3 fl (80-94) 08/23/21 10:00 MCH 31.3 pg (28.0-34.0) 08/23/21 10:00 MCHC 33.5 g/dL (30.0-36.0) 08/23/21 10:00 RDW 13.1 % (12.1-15.1) 08/23/21 10:00 Plt Count 145 10^3/cmm (130-400) 08/23/21 10:00 MPV 10.8 fL (7.4-10.4) H 08/23/21 10:00 Neut % (Auto) 93.3 % 08/23/21 10:00 Lymph % (Auto) 2.9 % 08/23/21 10:00 [place] % (Auto) 3.3 % 08/23/21 10:00 Eos % (Auto) 0.0 % 08/23/21 10:00 Baso % (Auto) 0.1 % 08/23/21 10:00 Neut # (Auto) 13.01 10^3/uL (1.8-7.7) H 08/23/21 10:00 Lymph # (Auto) 0.4 10^3/uL (0.8-4.8) L 08/23/21 10:00 [place] # (Auto) 0.5 10^3/uL (0.2-0.9) 08/23/21 10:00 Eos # (Auto) 0.0 10^3/uL (0.0-0.8) 08/23/21 10:00 Baso # (Auto) 0.0 10^3/uL (0.0-0.1) 08/23/21 10:00 Nucleated RBC % (auto) 0 % 08/23/21 10:00 Nucleated RBCs # 0.0 /100WBC 08/23/21 10:00 D-Dimer 0.69 ug/mIFEU (0-0.59) H 08/22/21 20:50 Specimen Type Arterial 08/22/21 20:14 Sample Site Radial, right 08/22/21 20:14 ABG pH 7.54 (7.35-7.45) H 08/22/21 20:14 ABG pCO2 25.7 mmHg (35-45) L 08/22/21 20:14 ABG pO2 51.4 mmHg (80.0-100.0) L 08/22/21 20:14 ABG HCO3 22.0 mmol/L (22-26) 08/22/21 20:14 ABG Base Excess 0.8 mmol/L (-2.0-2.0) 08/22/21 20:14 Yung Test Pos 08/22/21 20:14 Hematocrit 42.5 % (42-52) 08/22/21 20:14 Hgb O2 Saturation 87.9 % (95-100) L 08/22/21 20:14 Carboxyhemoglobin 1.0 %THgb (0.4-20.1) 08/22/21 20:14 Methemoglobin 0.9 % (0.4-1.5) 08/22/21 20:14 Total Hemoglobin 13.9 g/dL (14-18) L 08/22/21 20:14 O2 Delivery Device Nc 08/22/21 20:14 O2 Liters/Min 5.0 % 08/22/21 20:14 Planning Assistant ID [email or web address] 08/22/21 20:14 Sodium 138 mmol/L (136-145) 08/23/21 10:00 Potassium 4.2 mmol/L (3.5-5.1) 08/23/21 10:00 Chloride 106 mmol/L (98-107) 08/23/21 10:00 Carbon Dioxide 21 mmol/L (22-29) L 08/23/21 10:00 Anion Gap 15.2 (5-19) 08/23/21 10:00 BUN 53 mg/dL (8-23) H 08/23/21 10:00 Creatinine 1.7 mg/dL (0.7-1.2) H 08/23/21 10:00 GFR Calculation Not Reportable 08/23/21 10:00 Glucose 171 mg/dL (65-115) H 08/23/21 10:00 POC Glucose 174 mg/dL (70-110) H 08/23/21 12:01 Calculated Osmolality 304 mOsm/kg (285-295) H 08/23/21 10:00 Lactic Acid 2.0 mmol/L (0.5-2.2) 08/22/21 20:50 Calcium 7.7 mg/dL (8.5-10.5) L 08/23/21 10:00 Magnesium 1.9 mg/dL (1.7-2.3) 08/23/21 10:00 Total Bilirubin 0.6 mg/dL (0.15-1.2) 08/23/21 10:00 AST 94 U/L (0-40) H 08/23/21 10:00 ALT 76 U/L (0-41) H 08/23/21 10:00 Alkaline Phosphatase 42 IU/L (40-130) 08/23/21 10:00 Troponin T Baseline 72 ng/L (0-15) H 08/22/21 20:50 Troponin T 120 Minute 70.84 ng/L (0-15) H 08/22/21 22:37 Delta Troponin T -1.16 ABS# (0-10) L 08/22/21 22:37 Troponin T Hi Sens 6Hr 55.86 ng/L (0-15) H 08/23/21 03:35 Troponin T Hi Sens 6Hr Delta -16.14 ng/L (0-12) L 08/23/21 03:35 C-Reactive Protein 166.8 mg/L (0.0-4.9) H 08/22/21 20:50 NT-Pro-B Natriuret Pep 1574 pg/mL (0-450) H 08/22/21 20:50 Total Protein 5.7 g/dL (6.6-8.7) L 08/23/21 10:00 Albumin 2.8 g/dL (3.5-5.2) L 08/23/21 10:00 Globulin 2.9 g/dL (1.3-4.6) 08/23/21 10:00 Procalcitonin 0.59 ng/mL (0-0.5) H 08/23/21 10:00 Coronavirus 229E (PCR) Not detected (NOT DETECT) 08/22/21 21:08 SARS-CoV-2 (PCR) Detected (NOT DETECT) A 08/22/21 21:08 Impressions Chest X-Ray 08/22/21 20:14 IMPRESSION: Nonacute. Micro: Microbiology 08/22/21 22:25 Blood Culture - Preliminary Blood SPECIMEN COLLECTED 08/22/21 20:50 Blood Culture - Preliminary Blood SPECIMEN COLLECTED A&P Additional A&P Information Severe acute hypoxic respiratory failure secondary to COVID-19 pneumonia. We will continue with supplemental oxygen. The patient agreed with respiratory support including BiPAP and intubation if necessary. He was informed that he can change his decision at any point. I also discussed with his daughter on the phone. She also agreed with the plan of care. We will continue with steroids and vitamins. Also ordering Tocilizumab and furosemide IV. We will continue monitoring inflammatory markers. We also discussed proning and repositioning in the bed. Continue respiratory treatments. Will titrate oxygen as needed. Discussed with the respiratory therapist. The patient and her daughter realize that his condition is very serious and negative outcomes are possible. Diagnosis is guarded. DVT prophylaxis. He is on apixaban full dose. Acute kidney injury probably secondary to viral syndrome. We will try to avoid nephrotoxic medications. We will continue monitoring renal function. Hyperglycemia secondary to steroids. Insulin sliding scale. Elevated LFTs secondary to viral syndrome. Continue monitoring. Abnormal troponin probably secondary to demand ischemia. No chest pain. Continue current management of the hypoxia and pneumonia. Full code. Attestations Medical Necessity Statement*: The patient will require more than 2 midnights in the hospital for stabilization and treatment of the above listed problems. Coding Level of Care Code Acute Shirring Machine Operator Automatic for Marybeth Fong
--- NOTE | 2021-08-23 17:26 | PC.NURSE ---
Spoke with about visitors and he approved one visitor for a short period of time. Daughter, Sapna notified and all questions answered.
[2021-08-23] MEDS: ascorbic acid 500 mg Tablet 1000 MG PO (18:09)
[2021-08-23 18:12] LABS: Glucose Point of Care 185 mg/dL (70-110)
--- NOTE | 2021-08-23 21:55 | PC.NURSE ---
Patient arrived to ICU from [facility] at 2137. Patient is alert and orientated. No complaints of pain.
[2021-08-23] MEDS: cefTRIAXone 1,000 MG in sodium chloride 0.9% (plus) 50 ML 100 MG IV (23:35)
[2021-08-24] VITALS (99 sets, daily range): BP systolic 78–117; BP diastolic 42–92; PULSE 56–125; RESP 13–36; TEMP 36.6–37.1; O2SAT 81–96
[2021-08-24] MEDS: ipratropium-albuterol 3 mL Neb INHALATION ×4 (03:03→20:00)
--- NOTE | 2021-08-24 03:24 | PC.NURSE ---
Shift Note Frequent safety and comfort rounds continue. Orders and/or nursing care completed as indicated. Patient monitored for response to intervention and treatment(s). Education provided includes breathing techniques. Patient and/or safety representative reinforcement needed. Will continue to monitor.
[2021-08-24] MEDS: dexamethasone 10 mg/mL INJ 6 MG IVP (04:17)
[2021-08-24 04:44] LABS: Basophils % 0.1 %; Hematocrit 37.5 % (42.0-52.0); Hemoglobin 12.3 g/dL (11.7-16.6); Lymphocytes # 0.6 10^3/uL (0.8-4.8); Lymphocytes % 4.8 %; Mean Corpuscular HGB Conc 32.8 g/dL (30.0-36.0); Mean Corpuscular Volume 94.5 fl (80-94); Mean Platelet Volume 10.8 fL (7.4-10.4); Monocytes # 0.6 10^3/uL (0.2-0.9); Monocytes % 4.4 %; Nucleated Red Blood Cells % 0 %; Platelet Count 168 10^3/cmm (130-400); Red Blood Count 3.97 10^6/uL (4.1-5.3); Red Cell Distribution Width 12.7 % (12.1-15.1); White Blood Count 13.4 10^3/uL (4.0-10.0)
[2021-08-24 05:14] LABS: C Reactive Protein 132.6 mg/L (0.0-4.9); Magnesium 2.1 mg/dL (1.7-2.3)
[2021-08-24 05:17] LABS: Albumin Level 2.9 g/dL (3.5-5.2); Anion Gap 20.4 (5-19); Blood Urea Nitrogen 56 mg/dL (8-23); Calcium 7.9 mg/dL (8.5-10.5); Carbon Dioxide 20 mmol/L (22-29); Chloride 104 mmol/L (98-107); Glucose 183 mg/dL (65-115); NT Pro B Type Natriuretic Pept 1714 pg/mL (0-450); Phosphorus 3.4 mg/dL (2.5-4.5); Potassium 4.4 mmol/L (3.5-5.1); Sodium 140 mmol/L (136-145)
[2021-08-24 07:58] LABS: Glucose Point of Care 179 mg/dL (70-110)
[2021-08-24] MEDS: insulin lispro 100 unit/1 mL SUBCUT ×3 (08:10→17:54)
[2021-08-24] MEDS: cholecalciferol (vitamin D3) 1,000 unit Tablet 2000 UNIT PO (08:11)
[2021-08-24] MEDS: apixaban 5 mg Tablet PO ×2 (08:11→17:54)
[2021-08-24] MEDS: zinc gluconate 50 mg Tablet PO (08:11)
[2021-08-24] MEDS: PARoxetine 20 mg Tablet PO (08:11)
[2021-08-24] MEDS: FUROsemide 10 mg/mL SDV 4mL 40 MG IVP ×2 (08:11→22:41)
[2021-08-24] MEDS: ascorbic acid 500 mg Tablet 1000 MG PO ×2 (08:11→17:54)
[2021-08-24] MEDS: pantoprazole DR 40 mg Tablet PO (08:11)
--- NOTE | 2021-08-24 10:51 | PM.PN ---
Subjective Subjective: Interval history: The patient was transferred to ICU yesterday due to mild hypotension. Was started on norepinephrine. Currently reports feeling better. He is on high flow oxygen with FiO2 100%. Denies dizziness or lightheadedness, chest pain, palpitations, nausea vomiting, diarrhea. No fever. Medications: Reviewed: Yes Medication Review Details: Generic Name Dose Route Start Last Admin Trade Name Jamey PRN Reason Stop Dose Admin Albuterol/Ipratrop ium 3 ml 08/23/21 09:00 08/24/21 08:20 Ipratropium-Albu terol 3 Ml Neb INHALATION 3 ml Q6H.RESPIRATORY S CH Administration Apixaban 5 mg 08/23/21 09:00 08/24/21 08:11 Apixaban 5 Mg Ta blet PO 5 mg BID ELIO Administration Ascorbic Acid 1,000 mg 08/23/21 18:00 08/24/21 08:11 Ascorbic Acid 50 0 Mg Tablet PO 1,000 mg BID ELIO Administration Dexamethasone 6 mg 08/23/21 05:15 08/24/21 04:17 Dexamethasone 10 Mg/Ml Inj IVP 6 mg Q24H ELIO Administration Furosemide 40 mg 08/23/21 08:30 08/24/21 08:11 Furosemide 10 Mg /Ml Sdv 4ml IVP 40 mg Q12H ELIO Administration Norepinephrine Bit artrate 4 mg 254 mls @ 0 mls/h r 08/23/21 21:00 08/23/21 23:45 / Dextrose IV 2 mcg/min .Q0M ELIO 7.62 mls/hr Titration Protocol Per Protocol Ceftriaxone Sodium 1,000 mg/ 50 mls @ 100 mls/ hr 08/23/21 23:30 08/24/21 00:09 Sodium Chloride IV Infused Q24H ELIO Infusion Protocol Insulin Human Lisp ro 0 unit 08/23/21 12:00 08/24/21 08:10 Insulin Lispro 1 00 Unit/1 Ml SUBCUT 4 unit TIDWM ELIO Administration Protocol Pantoprazole Sodiu m 40 mg 08/23/21 09:00 08/24/21 08:[address] 40 Mg Tablet PO 40 mg DAILY ELIO Administration Paroxetine HCl 20 mg 08/23/21 09:00 08/24/21 08:11 Paroxetine 20 Mg Tablet PO 20 mg DAILY ELIO Administration Vitamin D 2,000 unit 08/24/21 09:00 08/24/21 08:11 Cholecalciferol (Vitamin D3) 1,000 Unit Tablet PO 2,000 unit DAILY ELIO Administration Zinc Gluconate 50 mg 08/24/21 09:00 08/24/21 08:11 Zinc Gluconate 5 0 Mg Tablet PO 50 mg DAILY ELIO Administration Vitals/I&O/Wt Last Vital Signs Temp 98.0 F 08/24/21 07:00 Pulse 107 H 08/24/21 08:30 Resp 23 H 08/24/21 08:30 BP 93/65 08/24/21 08:30 Pulse Ox 90 08/24/21 08:30 08/23/21 08/24/21 08/24/21 22:59 06:59 14:59 Intake Total 644.318 / 1364.318 197.178 / 1561.496 300 / 300 Output Total 800 / 1000 Balance 644.318 / 1164.318 -602.822 / 561.496 300 / 300 Weight last 48 hrs Weight 109.905 kg Weight 108.862 kg Weight 108.862 kg Physical Exam Narrative: EXAM NARRATIVE: Awake alert and oriented. No acute distress. Mood and affect are appropriate. Responses are adequate. Skin is warm and dry. Moist mucous membranes Eyes PERRL, extraocular muscles are intact Neck supple. No JVD Mild bilateral crackles in the lungs. No respiratory distress. No accessory muscle use. No wheezes. Heart S1, S2, irregular Abdomen is soft, nontender, bowel sounds are present Extremities trace edema, no cyanosis, no calf tenderness bilaterally Neuro examination is nonfocal Urinary Catheter Management^: Ndiaye: Cath Placed During This Visit: yes Reason for Continuing Indwelling Catheter: Accurate Measurement of Urinary Output in Critically Ill Patients Urinary Catheter Date of Insertion: 08/23/21 Urinary Catheter Time of Insertion: 22:11 Data : 08/24/21 04:18 08/24/21 04:18 Other Labs: Laboratory Results WBC 13.4 10^3/uL (4.0-10.0) H 08/24/21 04:18 RBC 3.97 10^6/uL (4.1-5.3) L 08/24/21 04:18 Hgb 12.3 g/dL (11.7-16.6) 08/24/21 04:18 Hct 37.5 % (42.0-52.0) L 08/24/21 04:18 MCV 94.5 fl (80-94) H 08/24/21 04:18 MCH 31.0 pg (28.0-34.0) 08/24/21 04:18 MCHC 32.8 g/dL (30.0-36.0) 08/24/21 04:18 RDW 12.7 % (12.1-15.1) 08/24/21 04:18 Plt Count 168 10^3/cmm (130-400) 08/24/21 04:18 MPV 10.8 fL (7.4-10.4) H 08/24/21 04:18 Neut % (Auto) 90.0 % 08/24/21 04:18 Lymph % (Auto) 4.8 % 08/24/21 04:18 [place] % (Auto) 4.4 % 08/24/21 04:18 Eos % (Auto) 0.0 % 08/24/21 04:18 Baso % (Auto) 0.1 % 08/24/21 04:18 Neut # (Auto) 12.10 10^3/uL (1.8-7.7) H 08/24/21 04:18 Lymph # (Auto) 0.6 10^3/uL (0.8-4.8) L 08/24/21 04:18 [place] # (Auto) 0.6 10^3/uL (0.2-0.9) 08/24/21 04:18 Eos # (Auto) 0.0 10^3/uL (0.0-0.8) 08/24/21 04:18 Baso # (Auto) 0.0 10^3/uL (0.0-0.1) 08/24/21 04:18 Nucleated RBC % (auto) 0 % 08/24/21 04:18 Nucleated RBCs # 0.0 /100WBC 08/24/21 04:18 D-Dimer 0.69 ug/mIFEU (0-0.59) H 08/22/21 20:50 Specimen Type Arterial 08/22/21 20:14 Sample Site Radial, right 08/22/21 20:14 ABG pH 7.54 (7.35-7.45) H 08/22/21 20:14 ABG pCO2 25.7 mmHg (35-45) L 08/22/21 20:14 ABG pO2 51.4 mmHg (80.0-100.0) L 08/22/21 20:14 ABG HCO3 22.0 mmol/L (22-26) 08/22/21 20:14 ABG Base Excess 0.8 mmol/L (-2.0-2.0) 08/22/21 20:14 Yung Test Pos 08/22/21 20:14 Hematocrit 42.5 % (42-52) 08/22/21 20:14 Hgb O2 Saturation 87.9 % (95-100) L 08/22/21 20:14 Carboxyhemoglobin 1.0 %THgb (0.4-20.1) 08/22/21 20:14 Methemoglobin 0.9 % (0.4-1.5) 08/22/21 20:14 Total Hemoglobin 13.9 g/dL (14-18) L 08/22/21 20:14 O2 Delivery Device Nc 08/22/21 20:14 O2 Liters/Min 5.0 % 08/22/21 20:14 Artificial Flowers Dyer ID [email or web address] 08/22/21 20:14 Sodium 140 mmol/L (136-145) 08/24/21 04:18 Potassium 4.4 mmol/L (3.5-5.1) 08/24/21 04:18 Chloride 104 mmol/L (98-107) 08/24/21 04:18 Carbon Dioxide 20 mmol/L (22-29) L 08/24/21 04:18 Anion Gap 20.4 (5-19) H 08/24/21 04:18 BUN 56 mg/dL (8-23) H 08/24/21 04:18 Creatinine 1.7 mg/dL (0.7-1.2) H 08/24/21 04:18 GFR Calculation Not Reportable 08/24/21 04:18 Glucose 183 mg/dL (65-115) H 08/24/21 04:18 POC Glucose 179 mg/dL (70-110) H 08/24/21 07:41 Calculated Osmolality 304 mOsm/kg (285-295) H 08/23/21 10:00 Lactic Acid 2.0 mmol/L (0.5-2.2) 08/22/21 20:50 Calcium 7.9 mg/dL (8.5-10.5) L 08/24/21 04:18 Phosphorus 3.4 mg/dL (2.5-4.5) 08/24/21 04:18 Magnesium 2.1 mg/dL (1.7-2.3) 08/24/21 04:18 Total Bilirubin 0.6 mg/dL (0.15-1.2) 08/23/21 10:00 AST 94 U/L (0-40) H 08/23/21 10:00 ALT 76 U/L (0-41) H 08/23/21 10:00 Alkaline Phosphatase 42 IU/L (40-130) 08/23/21 10:00 Troponin T Baseline 72 ng/L (0-15) H 08/22/21 20:50 Troponin T 120 Minute 70.84 ng/L (0-15) H 08/22/21 22:37 Delta Troponin T -1.16 ABS# (0-10) L 08/22/21 22:37 Troponin T Hi Sens 6Hr 55.86 ng/L (0-15) H 08/23/21 03:35 Troponin T Hi Sens 6Hr Delta -16.14 ng/L (0-12) L 08/23/21 03:35 C-Reactive Protein 132.6 mg/L (0.0-4.9) H 08/24/21 04:18 NT-Pro-B Natriuret Pep 1714 pg/mL (0-450) H 08/24/21 04:18 Total Protein 5.7 g/dL (6.6-8.7) L 08/23/21 10:00 Albumin 2.9 g/dL (3.5-5.2) L 08/24/21 04:18 Globulin 2.9 g/dL (1.3-4.6) 08/23/21 10:00 Procalcitonin 0.59 ng/mL (0-0.5) H 08/23/21 10:00 Coronavirus 229E (PCR) Not detected (NOT DETECT) 08/22/21 21:08 SARS-CoV-2 (PCR) Detected (NOT DETECT) A 08/22/21 21:08 Impressions Chest X-Ray 08/22/21 20:14 IMPRESSION: Nonacute. Micro: Microbiology 08/22/21 22:25 Blood Culture - Preliminary Blood NEGATIVE TO DATE 08/22/21 20:50 Blood Culture - Preliminary Blood NEGATIVE TO DATE A&P Assessment and plan (1) COVID-19 virus infection: Status: Acute (2) Acute hypoxemic respiratory failure: Status: Acute (3) Atrial fibrillation: Status: Acute Qualifiers: Atrial fibrillation type: other persistent Qualified Code(s): I48.19 - Other persistent atrial fibrillation (4) Aortic regurgitation: Status: Acute Qualifiers: Cardiac valve disease etiology: nonrheumatic Qualified Code(s): I35.1 - Nonrheumatic aortic (valve) insufficiency (5) Chronic kidney disease: Status: Acute Qualifiers: Chronic kidney disease stage: stage 3 (moderate) Qualified Code(s): N18.3 - Chronic kidney disease, stage 3 (moderate) Additional A&P Information Severe acute hypoxic respiratory failure secondary to COVID-19 pneumonia. Was on BiPAP yesterday. Currently stable on high flow oxygen. We will continue with steroids and vitamins. Received Tocilizumab and furosemide IV yesterday. We will continue monitoring inflammatory markers. We also discussed proning and repositioning in the bed. Continue respiratory treatments. Will titrate oxygen as needed. Discussed with the respiratory therapist and multidisciplinary team. Possible sepsis. Currently stabilized. Rocephin was initiated. We will try to taper norepinephrine off. A. fib. Currently rate controlled. Continue current management. DVT prophylaxis. He is on apixaban full dose. Acute kidney injury probably secondary to viral syndrome. Stable renal function today. We will try to avoid nephrotoxic medications. We will continue monitoring renal function. Hyperglycemia secondary to steroids. Insulin sliding scale. Anemia. Stable. Continue monitoring Elevated LFTs secondary to viral syndrome. Continue monitoring. Abnormal troponin probably secondary to demand ischemia. No chest pain. Continue current management of the hypoxia and pneumonia. Full code. Critical care time 35 minutes. Attestations Medical Necessity Statement*: Critical care time 35 minutes. The plan of care requires him to remain hospitalized. Please see above. Coding Level of Care Code Acute [facility] Diagnoses COVID-19 virus infection U07.1 Acute hypoxemic respiratory failure J96.01 Atrial fibrillation I48.19 Atrial fibrillation type: other persistent Aortic regurgitation I35.1 Cardiac valve disease etiology: nonrheumatic Chronic kidney disease N18.3 Chronic kidney disease stage: stage 3 (moderate)
[2021-08-24 11:43] LABS: Glucose Point of Care 256 mg/dL (70-110)
[2021-08-24 17:50] LABS: Glucose Point of Care 224 mg/dL (70-110)
[2021-08-24 21:56] LABS: Glucose Point of Care 232 mg/dL (70-110)
[2021-08-24] MEDS: cefTRIAXone 1,000 MG in sodium chloride 0.9% (plus) 50 ML 100 MG IV (22:41)
[2021-08-25] VITALS (52 sets, daily range): BP systolic 71–114; BP diastolic 44–69; PULSE 62–146; RESP 12–29; TEMP 36.6–37.2; O2SAT 86–95
[2021-08-25] MEDS: ipratropium-albuterol 3 mL Neb INHALATION ×4 (02:49→20:27)
[2021-08-25] MEDS: dexamethasone 10 mg/mL INJ 6 MG IVP (04:04)
[2021-08-25 04:41] LABS: Basophils % 0.2 %; Hematocrit 39.2 % (42.0-52.0); Hemoglobin 13.1 g/dL (11.7-16.6); Lymphocytes # 0.7 10^3/uL (0.8-4.8); Lymphocytes % 3.5 %; Mean Corpuscular HGB Conc 33.4 g/dL (30.0-36.0); Mean Corpuscular Hemoglobin 31.4 pg (28.0-34.0); Monocytes # 0.9 10^3/uL (0.2-0.9); Monocytes % 4.8 %; Neutrophils # 17.43 10^3/uL (1.8-7.7); Neutrophils % 90.4 %; Nucleated Red Blood Cells % 0 %; Platelet Count 244 10^3/cmm (130-400); Red Blood Count 4.17 10^6/uL (4.1-5.3); Red Cell Distribution Width 12.8 % (12.1-15.1); White Blood Count 19.3 10^3/uL (4.0-10.0)
--- NOTE | 2021-08-25 06:01 | XRR_ITS ---
PROCEDURE INFORMATION: Exam: XR Chest Exam date and time: 08/25/2021 6:01 AM Age: 81 years old Clinical indication: Shortness of breath; Additional info: Covid, SOB TECHNIQUE: Imaging protocol: XR of the chest. Views: 1 view. COMPARISON: CR (CHEST, ) 08/22/2021 8:47 PM FINDINGS: Lungs: Mild emphysema. Bilateral pulmonary opacities consistent with COVID-19. Pleural spaces: Unremarkable. No pleural effusion. No pneumothorax. Heart/Mediastinum: There is moderate cardiomegaly. Bones/joints: Unremarkable. XR/XR chest 1V portable [id number] IMPRESSION: 1. Mild emphysema. 2. Moderate cardiomegaly. 3. Bilateral pulmonary opacities consistent with COVID-19.
[2021-08-25 06:10] LABS: Alanine Aminotransferase 212 U/L (0-41); Albumin Level 3.3 g/dL (3.5-5.2); Alkaline Phosphatase 53 IU/L (40-130); Anion Gap 19.3 (5-19); Aspartate Amino Transferase 143 U/L (0-40); Blood Urea Nitrogen 62 mg/dL (8-23); C Reactive Protein 74.2 mg/L (0.0-4.9); Carbon Dioxide 22 mmol/L (22-29); Chloride 103 mmol/L (98-107); Globulin 2.6 g/dL (1.3-4.6); Glucose 154 mg/dL (65-115); Magnesium 2.2 mg/dL (1.7-2.3); Osmolality Calculated 309 mOsm/kg (285-295); Potassium 5.3 mmol/L (3.5-5.1); Sodium 139 mmol/L (136-145); Total Bilirubin 0.5 mg/dL (0.15-1.2); Total Protein 5.9 g/dL (6.6-8.7)
[2021-08-25 06:13] LABS: NT Pro B Type Natriuretic Pept 2837 pg/mL (0-450); Procalcitonin 0.43 ng/mL (0-0.5)
[2021-08-25 07:59] LABS: Glucose Point of Care 206 mg/dL (70-110)
[2021-08-25] MEDS: insulin lispro 100 unit/1 mL SUBCUT ×3 (08:05→18:32)
[2021-08-25] MEDS: FUROsemide 10 mg/mL SDV 4mL 40 MG IVP ×2 (08:05→20:31)
[2021-08-25] MEDS: apixaban 5 mg Tablet PO ×2 (08:05→18:32)
[2021-08-25] MEDS: pantoprazole DR 40 mg Tablet PO (08:06)
[2021-08-25] MEDS: cholecalciferol (vitamin D3) 1,000 unit Tablet 2000 UNIT PO (08:06)
[2021-08-25] MEDS: PARoxetine 20 mg Tablet PO (08:06)
[2021-08-25] MEDS: sodium polystyrene sulfonate 15 gm/60 mL Btl PO (08:06)
[2021-08-25] MEDS: ascorbic acid 500 mg Tablet 1000 MG PO ×2 (08:06→18:32)
[2021-08-25] MEDS: zinc gluconate 50 mg Tablet PO (08:06)
--- NOTE | 2021-08-25 09:45 | PC.CHAP ---
Pastoral Care Encounter/Spiritual Assessment Type of Contact [] Declined insole cementer visit [] Patient/Family/Request visit [] Outpatient visit [] Follow-up visit [] Physician referral [] Code/Alert [x]x Routine visit [] Staff referral [] Actively dying [] Patient sleeping [] Family support [] [] Out of room [] Palliative care [] [] Receiving care in room [] Pre-surgical visit [] Trauma [] Long length of stay [x] ICU visit [x] Other: setting in chair... breakfast Relational/Emotional Strength [] Patient feels connected with others/family/visitors/staff [] Distress [] Loneliness/isolation [] Abandonment Spirituality of Patient [] Person of Melissa [] Attends Jainism of their Melissa [] Believes in Prayer [] Reads Bible or Jew materials [] There are Spiritual issues to be addressed Timber Inspector Interventions [] Prayer [] Active listening [] Non-anxious presence [] Spiritual/emotional support [] Crisis/trauma care [] Spiritual counseling [] Bereavement support [] Provided bereavement packet [] Provided Bible/devotional materials [] Provided toy/stuffed animal, coloring book to patient or family member [] Provided Communion [] Anointing/[place] [] Salvation [] Completed spiritual assessment [] Other: Impact on Illness or Injury [] Angry [] Fearful [] Anxious [] Often cries [] Exhaustion [] Unable to work [] Unable to attend mormonism [] Unable to walk/stand [] Unable to read [] Unable to drive [] Unable to eat/drink [] Unable to sleep [] Unable to be with family [] Patient intubated [] Other: Summary Time spent with patient Pastoral Care Encounter/Spiritual Assessment Type of Contact [] Declined insole cementer visit [] Patient/Family/Request visit [] Outpatient visit [] Follow-up visit [] Physician referral [] Code/Alert [] Routine visit [] Staff referral [] Actively dying [] Patient sleeping [] Family support [] [] Out of room [] Palliative care [] [] Receiving care in room [] Pre-surgical visit [] Trauma [] Long length of stay [] ICU visit [] Other: Relational/Emotional Strength [] Patient feels connected with others/family/visitors/staff [] Distress [] Loneliness/isolation [] Abandonment Spirituality of Patient [] Person of Melissa [] Attends Jainism of their Melissa [] Believes in Prayer [] Reads Bible or Jew materials [] There are Spiritual issues to be addressed Timber Inspector Interventions [x] Prayer [] Active listening [] Non-anxious presence [] Spiritual/emotional support [] Crisis/trauma care [] Spiritual counseling [] Bereavement support [] Provided bereavement packet [] Provided Bible/devotional materials [] Provided toy/stuffed animal, coloring book to patient or family member [] Provided Communion [] Anointing/[place] [] Salvation [x] Completed spiritual assessment [] Other: Impact on Illness or Injury [] Angry [] Fearful [] Anxious [] Often cries [] Exhaustion [] Unable to work [] Unable to attend mormonism [] Unable to walk/stand [] Unable to read [] Unable to drive [] Unable to eat/drink [] Unable to sleep [] Unable to be with family [] Patient intubated [] Other: Summary Time spent with patient
--- NOTE | 2021-08-25 11:07 | P.PN_ITS ---
Subjective Subjective: Interval history: Doing well. Denies any active complaints. Reports feeling stronger. He feels that his breathing is also better. Reports cough. No chest pain. No fever or chills. No dizziness or lightheadedness. Medications: Reviewed: Yes Medication Review Details: Generic Name Dose Route Start Last Admin Trade Name Anirudhq PRN Reason Stop Dose Admin Albuterol/Ipratrop ium 3 ml 08/23/21 09:00 08/24/21 08:20 Ipratropium-Albu terol 3 Ml Neb INHALATION 3 ml Q6H.RESPIRATORY S CH Administration Apixaban 5 mg 08/23/21 09:00 08/24/21 08:11 Apixaban 5 Mg Ta blet PO 5 mg BID ELIO Administration Ascorbic Acid 1,000 mg 08/23/21 18:00 08/24/21 08:11 Ascorbic Acid 50 0 Mg Tablet PO 1,000 mg BID ELIO Administration Dexamethasone 6 mg 08/23/21 05:15 08/24/21 04:17 Dexamethasone 10 Mg/Ml Inj IVP 6 mg Q24H ELIO Administration Furosemide 40 mg 08/23/21 08:30 08/24/21 08:11 Furosemide 10 Mg /Ml Sdv 4ml IVP 40 mg Q12H ELIO Administration Norepinephrine Bit artrate 4 mg 254 mls @ 0 mls/h r 08/23/21 21:00 08/23/21 23:45 / Dextrose IV 2 mcg/min .Q0M ELIO 7.62 mls/hr Titration Protocol Per Protocol Ceftriaxone Sodium 1,000 mg/ 50 mls @ 100 mls/ hr 08/23/21 23:30 08/24/21 00:09 Sodium Chloride IV Infused Q24H ELIO Infusion Protocol Insulin Human Lisp ro 0 unit 08/23/21 12:00 08/24/21 08:10 Insulin Lispro 1 00 Unit/1 Ml SUBCUT 4 unit TIDWM ELIO Administration Protocol Pantoprazole Sodiu m 40 mg 08/23/21 09:00 08/24/21 08:[address] 40 Mg Tablet PO 40 mg DAILY ELIO Administration Paroxetine HCl 20 mg 08/23/21 09:00 08/24/21 08:11 Paroxetine 20 Mg Tablet PO 20 mg DAILY ELIO Administration Vitamin D 2,000 unit 08/24/21 09:00 08/24/21 08:11 Cholecalciferol (Vitamin D3) 1,000 Unit Tablet PO 2,000 unit DAILY ELIO Administration Zinc Gluconate 50 mg 08/24/21 09:00 08/24/21 08:11 Zinc Gluconate 5 0 Mg Tablet PO 50 mg DAILY ELIO Administration Vitals/I&O/Wt Last Vital Signs Temp 98.9 F 08/25/21 04:00 Pulse 97 08/25/21 09:01 Resp 16 08/25/21 09:01 BP 92/61 08/25/21 04:00 Pulse Ox 95 08/25/21 09:01 08/24/21 08/25/21 08/25/21 22:59 06:59 14:59 Intake Total 848.326 / 1553.228 579.022 / 2132.250 Output Total 900 / 900 500 / 1400 Balance -51.674 / 653.228 79.022 / 732.250 Weight last 48 hrs Weight 108.908 kg Physical Exam Narrative: EXAM NARRATIVE: Awake alert and oriented. No acute distress. Mood and affect are appropriate. Responses are adequate. Skin is warm and dry. Moist mucous membranes Eyes PERRL, extraocular muscles are intact Neck supple. No JVD Mild bilateral crackles in the lungs. No respiratory distress. No accessory muscle use. No wheezes. Heart S1, S2, irregular Abdomen is soft, nontender, bowel sounds are present Extremities trace edema, no cyanosis, no calf tenderness bilaterally Neuro examination is nonfocal Urinary Catheter Management^: Ndiaye: Cath Placed During This Visit: yes Reason for Continuing Indwelling Catheter: Accurate Measurement of Urinary Output in Critically Ill Patients Urinary Catheter Date of Insertion: 08/23/21 Urinary Catheter Time of Insertion: 22:11 Data : 08/25/21 03:52 08/25/21 03:52 Micro: Microbiology 08/23/21 19:00 Gram Stain - Final Sputum - Expectorated Sputum A&P Assessment and plan (1) COVID-19 virus infection: Status: Acute (2) Acute hypoxemic respiratory failure: Status: Acute (3) Atrial fibrillation: Status: Acute Qualifiers: Atrial fibrillation type: other persistent Qualified Code(s): I48.19 - Other persistent atrial fibrillation (4) Aortic regurgitation: Status: Acute Qualifiers: Cardiac valve disease etiology: nonrheumatic Qualified Code(s): I35.1 - Nonrheumatic aortic (valve) insufficiency (5) Chronic kidney disease: Status: Acute Qualifiers: Chronic kidney disease stage: stage 3 (moderate) Qualified Code(s): N18.3 - Chronic kidney disease, stage 3 (moderate) Additional A&P Information Severe acute hypoxic respiratory failure secondary to COVID-19 pneumonia. Currently stable on high flow oxygen. FiO2 is 100%. We will continue with steroids and vitamins. Received Tocilizumab. Continuing furosemide. We will continue monitoring inflammatory markers which are currently improved. Continue proning and repositioning in the bed. Continue respiratory treatments. Discussed with the respiratory therapist and multidisciplinary team. Hypotension. sepsis. Currently stabilized. Rocephin was initiated. We will try to taper norepinephrine off. I spoke with his daughter Padmini who reports that the patient is prone to hypotension normally. A. fib. Currently rate controlled. Continue current management. DVT prophylaxis. He is on apixaban full dose. Acute kidney injury probably secondary to viral syndrome. Stable, slightly renal function today. We will try to avoid nephrotoxic medications. We will continue monitoring renal function. Hyperglycemia secondary to steroids. Insulin sliding scale. Anemia. Stable. Continue monitoring Elevated LFTs secondary to viral syndrome. Worsened. No abdominal pain. Reviewed medications. Continue monitoring. Abnormal troponin probably secondary to demand ischemia. No chest pain. Continue current management of the hypoxia and pneumonia. Full code. Critical care time 35 minutes. Discussed with patient's daughter on the phone. Discussed with the patient. They verbalized understanding and agreement with the plan of care. Attestations Medical Necessity Statement*: Critical care time spent on this encounter is 40 minutes. Coding Level of Care Code Acute [facility] Diagnoses COVID-19 virus infection U07.1 Acute hypoxemic respiratory failure J96.01 Atrial fibrillation I48.19 Atrial fibrillation type: other persistent Aortic regurgitation I35.1 Cardiac valve disease etiology: nonrheumatic Chronic kidney disease N18.3 Chronic kidney disease stage: stage 3 (moderate)
[2021-08-25 12:04] LABS: Glucose Point of Care 279 mg/dL (70-110)
--- NOTE | 2021-08-25 15:44 | PC.SOCIAL ---
IMM not update IMM not updated as patient isn't expected to DC in the next 24-48 hours.
--- NOTE | 2021-08-25 16:00 | PC.NURSE ---
Transfer Note Patient transferred to [facility] from ICU via Bed. Handoff received from Chetna ARCINIEGA. Patient oriented to environment and equipment. Covering service notified. Orders reviewed and will continue to monitor. Family and/or sales representative notified.
[2021-08-25 16:50] LABS: Glucose Point of Care 195 mg/dL (70-110)
[2021-08-25] MEDS: cefTRIAXone 1,000 MG in sodium chloride 0.9% (plus) 50 ML 100 MG IV (20:31)
[2021-08-25 21:28] LABS: Glucose Point of Care 228 mg/dL (70-110)
[2021-08-26] VITALS (15 sets, daily range): BP systolic 80–106; BP diastolic 49–61; PULSE 76–102; RESP 17–27; TEMP 36.6; O2SAT 88–96
[2021-08-26] MEDS: ipratropium-albuterol 3 mL Neb INHALATION ×4 (03:21→20:31)
[2021-08-26 05:07] LABS: Basophils % 0.1 %; Hematocrit 37.4 % (42.0-52.0); Hemoglobin 12.2 g/dL (11.7-16.6); Lymphocytes # 0.5 10^3/uL (0.8-4.8); Lymphocytes % 3.5 %; Mean Corpuscular HGB Conc 32.6 g/dL (30.0-36.0); Mean Corpuscular Hemoglobin 30.8 pg (28.0-34.0); Mean Corpuscular Volume 94.4 fl (80-94); Mean Platelet Volume 10.9 fL (7.4-10.4); Monocytes # 0.8 10^3/uL (0.2-0.9); Monocytes % 5.7 %; Neutrophils # 12.18 10^3/uL (1.8-7.7); Neutrophils % 89.5 %; Nucleated Red Blood Cells % 0 %; Platelet Count 222 10^3/cmm (130-400); Red Blood Count 3.96 10^6/uL (4.1-5.3); Red Cell Distribution Width 12.5 % (12.1-15.1); White Blood Count 13.6 10^3/uL (4.0-10.0)
[2021-08-26] MEDS: dexamethasone 10 mg/mL INJ 6 MG IVP (05:35)
[2021-08-26 06:14] LABS: Alanine Aminotransferase 149 U/L (0-41); Albumin Level 2.9 g/dL (3.5-5.2); Alkaline Phosphatase 67 IU/L (40-130); Anion Gap 18.4 (5-19); Aspartate Amino Transferase 48 U/L (0-40); Blood Urea Nitrogen 68 mg/dL (8-23); Calcium 7.9 mg/dL (8.5-10.5); Carbon Dioxide 23 mmol/L (22-29); Chloride 100 mmol/L (98-107); Globulin 2.9 g/dL (1.3-4.6); Glucose 172 mg/dL (65-115); Osmolality Calculated 308 mOsm/kg (285-295); Potassium 4.4 mmol/L (3.5-5.1); Sodium 137 mmol/L (136-145); Total Bilirubin 0.4 mg/dL (0.15-1.2); Total Protein 5.8 g/dL (6.6-8.7)
[2021-08-26 06:34] LABS: Glucose Point of Care 176 mg/dL (70-110)
[2021-08-26] MEDS: apixaban 5 mg Tablet PO ×2 (08:21→17:53)
[2021-08-26] MEDS: zinc gluconate 50 mg Tablet PO (08:21)
[2021-08-26] MEDS: cholecalciferol (vitamin D3) 1,000 unit Tablet 2000 UNIT PO (08:21)
[2021-08-26] MEDS: ascorbic acid 500 mg Tablet 1000 MG PO ×2 (08:21→17:53)
[2021-08-26] MEDS: FUROsemide 10 mg/mL SDV 4mL 40 MG IVP ×2 (08:21→20:11)
[2021-08-26] MEDS: pantoprazole DR 40 mg Tablet PO (08:21)
[2021-08-26] MEDS: PARoxetine 20 mg Tablet PO (08:21)
[2021-08-26] MEDS: insulin lispro 100 unit/1 mL SUBCUT ×3 (08:22→17:58)
[2021-08-26 09:03] LABS: Cortisol Random 1.51 ug/dL (2.47-19.5)
[2021-08-26 11:38] LABS: Glucose Point of Care 200 mg/dL (70-110)
--- NOTE | 2021-08-26 13:28 | PM.PN ---
Subjective Subjective: Interval history: The patient reports no significant changes or events since yesterday. No significant shortness of breath with current oxygen concentration. No chest pain or wheezing. No fever or chills. No nausea or vomiting. No diarrhea. No dizziness or lightheadedness. He reports that his hypotension is chronic. Medications: Reviewed: Yes Medication Review Details: Generic Name Dose Route Start Last Admin Trade Name Jamey PRN Reason Stop Dose Admin Albuterol/Ipratrop ium 3 ml 08/23/21 09:00 08/26/21 03:21 Ipratropium-Albu terol 3 Ml Neb INHALATION 3 ml Q6H.RESPIRATORY S CH Administration Apixaban 5 mg 08/23/21 09:00 08/26/21 08:21 Apixaban 5 Mg Ta blet PO 5 mg BID ELIO Administration Ascorbic Acid 1,000 mg 08/23/21 18:00 08/26/21 08:21 Ascorbic Acid 50 0 Mg Tablet PO 1,000 mg BID ELIO Administration Furosemide 40 mg 08/23/21 08:30 08/26/21 08:21 Furosemide 10 Mg /Ml Sdv 4ml IVP 40 mg Q12H ELIO Administration Ceftriaxone Sodium 1,000 mg/ 50 mls @ 100 mls/ hr 08/23/21 23:30 08/25/21 22:11 Sodium Chloride IV Infused Q24H ELIO Infusion Protocol Insulin Human Lisp ro 0 unit 08/23/21 12:00 08/26/21 08:22 Insulin Lispro 1 00 Unit/1 Ml SUBCUT 4 unit TIDWM ELIO Administration Protocol Pantoprazole Sodiu m 40 mg 08/23/21 09:00 08/26/21 08:[address] 40 Mg Tablet PO 40 mg DAILY ELIO Administration Paroxetine HCl 20 mg 08/23/21 09:00 08/26/21 08:21 Paroxetine 20 Mg Tablet PO 20 mg DAILY ELIO Administration Vitamin D 2,000 unit 08/24/21 09:00 08/26/21 08:21 Cholecalciferol (Vitamin D3) 1,000 Unit Tablet PO 2,000 unit DAILY ELIO Administration Zinc Gluconate 50 mg 08/24/21 09:00 08/26/21 08:21 Zinc Gluconate 5 0 Mg Tablet PO 50 mg DAILY ELIO Administration Vitals/I&O/Wt Last Vital Signs Temp 98 F 08/26/21 04:00 Pulse 79 08/26/21 09:08 Resp 22 H 08/26/21 09:08 BP 91/54 08/26/21 09:08 Pulse Ox 94 08/26/21 09:08 08/25/21 08/26/21 08/26/21 22:59 06:59 14:59 Intake Total 170 / 826.642 150 / 976.642 240 / 240 Output Total 600 / 600 Balance -430 / 226.642 150 / 376.642 240 / 240 Weight last 48 hrs Weight 110.223 kg Weight 108.908 kg Physical Exam Narrative: EXAM NARRATIVE: Awake alert and oriented. No acute distress. Mood and affect are appropriate. Responses are adequate. Skin is warm and dry. Moist mucous membranes Eyes PERRL, extraocular muscles are intact Neck supple. No JVD Mild bilateral crackles in the lungs. No respiratory distress. No accessory muscle use. No wheezes. Heart S1, S2, irregular Abdomen is soft, nontender, bowel sounds are present Extremities trace edema, no cyanosis, no calf tenderness bilaterally Neuro examination is nonfocal Urinary Catheter Management^: Ndiaye: Cath Placed During This Visit: yes Reason for Continuing Indwelling Catheter: Acute Urinary Retention or Obstruction Urinary Catheter Date of Insertion: 08/23/21 Urinary Catheter Time of Insertion: 22:11 Data : 08/26/21 04:47 08/26/21 04:47 Micro: Microbiology 08/23/21 19:00 Gram Stain - Final Sputum - Expectorated Sputum Sputum Culture - Preliminary A&P Assessment and plan (1) COVID-19 virus infection: Status: Acute (2) Acute hypoxemic respiratory failure: Status: Acute (3) Atrial fibrillation: Status: Acute Qualifiers: Atrial fibrillation type: other persistent Qualified Code(s): I48.19 - Other persistent atrial fibrillation (4) Aortic regurgitation: Status: Acute Qualifiers: Cardiac valve disease etiology: nonrheumatic Qualified Code(s): I35.1 - Nonrheumatic aortic (valve) insufficiency (5) Chronic kidney disease: Status: Acute Qualifiers: Chronic kidney disease stage: stage 3 (moderate) Qualified Code(s): N18.3 - Chronic kidney disease, stage 3 (moderate) Additional A&P Information Severe acute hypoxic respiratory failure secondary to COVID-19 pneumonia. Currently stable on high flow oxygen. FiO2 is 100%. We will continue with steroids and vitamins. Received Tocilizumab. Continuing furosemide. We will continue monitoring inflammatory markers which are currently improved. Continue proning and repositioning in the bed. Continue respiratory treatments. Hypotension. Doubt sepsis. Currently stabilized. Rocephin was initiated. Off the pressors. I spoke with his daughter Padmini who reports that the patient is prone to hypotension normally. Patient's random cortisol this morning came back very low. I suspect adrenal insufficiency. I will switch him from dexamethasone to Solu-Medrol, higher equivalent dose. Hopefully Solu-Medrol will help with the hypotension as well due to mineralocorticoid activity. Adrenal insufficiency. As above. A. fib. Currently rate controlled. Continue current management. DVT prophylaxis. He is on apixaban full dose. Acute kidney injury probably secondary to viral syndrome. Stable, slightly renal function today. We will try to avoid nephrotoxic medications. We will continue monitoring renal function. Hyperglycemia secondary to steroids. Insulin sliding scale. Anemia. Stable. Continue monitoring Elevated LFTs secondary to viral syndrome. Now improving. No abdominal pain. Reviewed medications. Continue monitoring. Abnormal troponin probably secondary to demand ischemia. No chest pain. Continue current management of the hypoxia and pneumonia. Full code. Discussed with patient's daughter on the phone yesterday. Please continue updating her regularly. Discussed with the patient. They verbalized understanding and agreement with the plan of care. Attestations Medical Necessity Statement*: Continue aggressive management of acute respiratory failure secondary to COVID-19. 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
[2021-08-26 14:08] LABS: Glucose Point of Care 215 mg/dL (70-110)
[2021-08-26 16:47] LABS: Glucose Point of Care 180 mg/dL (70-110)
--- NOTE | 2021-08-26 18:50 | PC.NURSE ---
Received report from DEMIAN Rehman. Patient up to chair. Denies pain or needs at this time. No distress observed. Patient reports feeling well and enjoyed being up out of bed today. Discussed evening plans. Patient verbalized understanding. Will continue to monitor.
--- NOTE | 2021-08-26 18:58 | PC.NURSE ---
Shift Note Frequent safety and comfort rounds continue. Orders and/or nursing care completed as indicated. Patient monitored for response to intervention and treatment(s). Education provided includes continued plan of care IS and flutter valve usage . Patient and/or self pay representative Verbalized understanding. Will continue to monitor.
[2021-08-26] MEDS: cefTRIAXone 1,000 MG in sodium chloride 0.9% (plus) 50 ML 100 MG IV (20:11)
[2021-08-26 20:15] LABS: Glucose Point of Care 256 mg/dL (70-110)
[2021-08-27] VITALS (16 sets, daily range): BP systolic 90–114; BP diastolic 50–56; PULSE 8–115; RESP 18–26; TEMP 36.6–36.8; O2SAT 90–96
[2021-08-27] MEDS: ipratropium-albuterol 3 mL Neb INHALATION ×4 (03:00→20:29)
--- NOTE | 2021-08-27 03:12 | PC.NURSE ---
Patient reports sleeping well this night as well as feeling much better this morning. Instructed patient on solumedrol to include uses and side effects. Patient verbalized complete understanding. Patient denies pain or needs. No distress observed. Will continue to monitor.
[2021-08-27 05:26] LABS: Basophils % 0.1 %; Hematocrit 36.7 % (42.0-52.0); Hemoglobin 12.2 g/dL (11.7-16.6); Lymphocytes # 0.4 10^3/uL (0.8-4.8); Lymphocytes % 2.6 %; Mean Corpuscular HGB Conc 33.2 g/dL (30.0-36.0); Mean Corpuscular Hemoglobin 31.1 pg (28.0-34.0); Mean Corpuscular Volume 93.6 fl (80-94); Mean Platelet Volume 10.9 fL (7.4-10.4); Monocytes # 0.7 10^3/uL (0.2-0.9); Monocytes % 5.4 %; Neutrophils # 12.35 10^3/uL (1.8-7.7); Neutrophils % 90.7 %; Nucleated Red Blood Cells % 0 %; Platelet Count 223 10^3/cmm (130-400); Red Blood Count 3.92 10^6/uL (4.1-5.3); Red Cell Distribution Width 12.4 % (12.1-15.1); White Blood Count 13.6 10^3/uL (4.0-10.0)
[2021-08-27 05:39] LABS: Alanine Aminotransferase 111 U/L (0-41); Alkaline Phosphatase 45 IU/L (40-130); Aspartate Amino Transferase 22 U/L (0-40); Blood Urea Nitrogen 65 mg/dL (8-23); C Reactive Protein 19.7 mg/L (0.0-4.9); Calcium 7.8 mg/dL (8.5-10.5); Carbon Dioxide 24 mmol/L (22-29); Chloride 102 mmol/L (98-107); Globulin 2.7 g/dL (1.3-4.6); Glucose 193 mg/dL (65-115); Osmolality Calculated 312 mOsm/kg (285-295); Sodium 139 mmol/L (136-145); Total Bilirubin 0.5 mg/dL (0.15-1.2); Total Protein 5.7 g/dL (6.6-8.7)
[2021-08-27 05:40] LABS: Anion Gap 17.6 (5-19); Potassium 4.6 mmol/L (3.5-5.1)
[2021-08-27 06:20] LABS: Glucose Point of Care 207 mg/dL (70-110)
--- NOTE | 2021-08-27 07:00 | XRR_ITS ---
PROCEDURE INFORMATION: Exam: XR Chest Exam date and time: 08/27/2021 7:00 AM Age: 81 years old Clinical indication: Shortness of breath; Additional info: Covid TECHNIQUE: Imaging protocol: XR of the chest. Views: 1 view. COMPARISON: CR XR chest 1V portable [id number] 08/25/2021 4:34 AM FINDINGS: Lungs: There is stable patchy hazy bilateral interstitial infiltrates. Pleural spaces: Unremarkable. No pleural effusion. No pneumothorax. Heart/Mediastinum: Unremarkable. No cardiomegaly. Bones/joints: Unremarkable. XR/XR chest 1V portable [id number] IMPRESSION: Stable patchy hazy bilateral interstitial pulmonary infiltrates consistent with viral pneumonia.
[2021-08-27] MEDS: insulin lispro 100 unit/1 mL SUBCUT ×2 (09:17→11:51)
[2021-08-27] MEDS: pantoprazole DR 40 mg Tablet PO (09:19)
[2021-08-27] MEDS: FUROsemide 10 mg/mL SDV 4mL 40 MG IVP ×2 (09:19→19:56)
[2021-08-27] MEDS: PARoxetine 20 mg Tablet PO (09:19)
[2021-08-27] MEDS: cholecalciferol (vitamin D3) 1,000 unit Tablet 2000 UNIT PO (09:19)
[2021-08-27] MEDS: zinc gluconate 50 mg Tablet PO (09:19)
[2021-08-27] MEDS: ascorbic acid 500 mg Tablet 1000 MG PO ×2 (09:19→17:38)
[2021-08-27] MEDS: apixaban 5 mg Tablet PO ×2 (09:20→17:38)
--- NOTE | 2021-08-27 11:16 | P.PN_ITS ---
Subjective Subjective: Interval history: Seen this morning. Patient is requesting that we have a family meeting with daughter and him present in the room at the same time. Daughter will be coming today to visit him. We will have a family meeting at 1:00 just for an update for his management is current hospital stay. He states he chronically runs low blood pressure systolic blood pressure in the 70s and he is always asymptomatic. He states he does not have adrenal insufficiency. He has always been asymptomatic with that blood pressure and that is normal for him. He does say that he feels better compared to yesterday. He is on 80% FiO2 and 55 L today. Blood pressure 92/55. Denies any lightheadedness chest pain, shortness of breath. Saturating 9192%. Vitals/I&O/Wt Last Vital Signs Temp 98.3 F 08/27/21 03:12 Pulse 107 H 08/27/21 09:23 Resp 20 H 08/27/21 09:23 BP 92/55 08/27/21 08:00 Pulse Ox 91 08/27/21 09:23 08/26/21 08/27/21 08/27/21 22:59 06:59 14:59 Intake Total 290 / 770 360 / 360 Output Total 1525 / 2825 Balance 290 / -530 -1525 / -2055 360 / 360 Weight last 48 hrs Weight 110.54 kg Weight 110.223 kg Physical Exam Narrative: EXAM NARRATIVE: General: Alert oriented x3, patient seen sitting up in bed on heated high flow. Appearing very comfortable. Looks energetic. HEENT: Normocephalic, atraumatic, EOMI, breathing heated high flow. Cardio: Slightly tachycardic, normal S1-S2, no murmurs Respiratory: Slightly diminished bilateral air entry, coarse breath sounds at bases. No gross wheezes appreciated. No acute respiratory distress. No conversational dyspnea. GI: Abdomen soft, nontender,bowel sounds + Behavior: Appropriate and cooperative Extremities: No lower extremity edema. Urinary Catheter Management^: Ndiaye: Cath Placed During This Visit: yes Reason for Continuing Indwelling Catheter: Acute Urinary Retention or Obstruction Urinary Catheter Date of Insertion: 08/23/21 Urinary Catheter Time of Insertion: 22:11 Data : 08/27/21 05:03 08/27/21 05:03 A&P Assessment and plan (1) Acute hypoxemic respiratory failure: Status: Acute (2) COVID-19 virus infection: Status: Acute (3) Pneumonia due to 2019-nCoV: Status: Acute (4) Atrial fibrillation: Status: Acute Qualifiers: Atrial fibrillation type: other persistent Qualified Code(s): I48.19 - Other persistent atrial fibrillation (5) Congestive heart failure: Status: Acute Qualifiers: Heart failure type: combined systolic and diastolic Heart failure chronicity: chronic Qualified Code(s): I50.42 - Chronic combined systolic (congestive) and diastolic (congestive) heart failure (6) Chronic kidney disease: Status: Acute Qualifiers: Chronic kidney disease stage: stage 3 (moderate) Qualified Code(s): N18.3 - Chronic kidney disease, stage 3 (moderate) (7) Aortic regurgitation: Status: Acute Qualifiers: Cardiac valve disease etiology: nonrheumatic Qualified Code(s): I35.1 - Nonrheumatic aortic (valve) insufficiency Additional A&P Information #Acute hypoxic respiratory failure secondary to COVID-19 pneumonia #Hypotension,? Adrenal insufficiency? Morning cortisol low. Chronic hypotension as per the patient. #Acute kidney injury on CKD 3 #Anemia #Atrial fibrillation generally rate controlled #Chronic systolic congestive heart failure on Entresto at home, last EF 45%. #History of aortic regurgitation nonrheumatic Hospital course so far ?Patient presented with COVID-19 pneumonia. He has been on dexamethasone was, vitamins. Dexamethasone was switched to Solu-Medrol after morning cortisol was found to be low. He also received 1 dose of Tocilizumab. He also required pressors briefly in the ICU secondary to hypotension. He was able to be weaned off. Patient states his blood pressure is chronically low specifically in 70s systolic as he keeps a log at home. His atrial fibrillation is currently rate controlled. He does get slightly tachycardic after getting a breathing treatment. Troponin was also slightly elevated possibly secondary to demand ischemia. He was on 100% FiO2 up until 08/26/2021. Today FiO2 80%, 55 L flow rate. Patient is currently on Eliquis for his atrial fibrillation and DVT prophylaxis. Entresto is being held at this time. Today's plan 08/27/2021 -Continue Eliquis twice daily ?Patient's hypotension required Levophed shortly in the ICU and ceftriaxone was initiated for possible sepsis. Patient has had 4 doses so far. I will let him have 1 more dose to complete 5 days and de-escalate possibly by tomorrow. Will check procalcitonin as well. ?Atrial fibrillation is currently rate controlled. He does become slightly tachycardic after breathing treatment. We will continue to watch for now. Patient is on metoprolol tartrate 12.5 twice daily at home. It is being held right now secondary to hypotension. -He has been on Lasix 40 mg IV twice daily. Last echo we have is from [facility] ch showed EF 45% with moderate aortic valve regurgitation. I will repeat an echo. Clinically patient does not look fluid overloaded today but I will keep Lasix 40 IV twice daily for now. BNP at admission was 1574 and went up to 2837 on 08/25/2021. Urine output 2800 cc in last 24-hour. -Continue patient on Solu-Medrol 40 IV twice daily. I will watch him another day on this dose. I might consider doing stress dose steroid. -Continue patient on heated high flow, escalate to BiPAP versus intubation if needed. Note from previous doctor does mention that this was discussed with the family and patient willing to be intubated if required. ?We will have a family meeting at 1 PM today to update the daughter and the patient in detail. -We will add physical therapy consult for patient once oxygen requirement is better. DVT prophylaxis: On Eliquis Full code Prognosis is guarded Attestations Medical Necessity Statement*: > 72 hour stay. 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
[2021-08-27 11:23] LABS: Glucose Point of Care 271 mg/dL (70-110)
--- NOTE | 2021-08-27 11:29 | USCV_ITS ---
Raymond Smith Age: 81 Gender: M : 1940 Exam Date: 08/27/2021 11:58 Ordering Phys: Tiny Fuentes MD Technologist: Aleja Cox [place] [facility] [place]: SOB AND KNOWN HEART DX. PT ON COVID PRECAUTIONS BP: 90 / 55 HR: 108 Rhythm: Other Technical Quality: Adequate MEASUREMENTS (Male / Female) Normal Values 2D ECHO LV Diastolic Diameter PLAX 6.0 cm 4.2 - 5.9 / 3.9 - 5.3 cm LV Systolic Diameter PLAX 4.3 cm LV Chamber Size 5.4 cm IVS Diastolic Thickness 1.5 cm 0.6 - 1.0 / 0.6 - 0.9 cm IVS Systolic Thickness 1.8 cm LVPW Diastolic Thickness 1.5 cm 0.6 - 1.0 / 0.6 - 0.9 cm LVPW Systolic Thickness 1.7 cm RV Chamber Size 4.0 cm LVOT Diameter 2.6 cm LV Ejection Fraction 2D Teich 53.5 % LV Ejection Fraction MOD 2C 60.4 % LV Ejection Fraction 2C AL 62.4 % LA Diameter 4.9 cm LA Width 5.2 cm LA Height 4.0 cm RA Width 4.3 cm RA Height 4.7 cm Aorta at Sinotubular Diameter 5.1 cm M-MODE Aortic Annulus Diameter 5.0 cm LA Ao Ratio MM 1.1 MV E Point Septal Separation 0.4 cm DOPPLER AV Peak Velocity 192.0 cm/s LVOT Peak Velocity 102.0 cm/s AV Area Cont Eq vti 3.4 cm squared AV Area Cont Eq pk 2.8 cm squared MV Area PHT 2.5 cm squared MV E' Velocity 48.0 cm/s Mitral E to MV E' Ratio 5.8 Mitral E to LV E' Lateral Ratio 5.7 Mitral E to LV E' Septal Ratio 5.9 TR Peak Velocity 229.4 cm/s TR Peak Gradient 21.0 mmHg TR Mean Velocity 149.6 cm/s TR Mean Gradient 11.1 mmHg TR Velocity Time Integral 61.7 cm TV Peak E Velocity 76.0 cm/s Right Atrial Pressure 3.0 mmHg Pulmonary Artery Systolic Pressu 24.0 mmHg PV Peak Velocity 70.0 cm/s RV Acceleration Time 0.2 s RV Ejection Time 0.3 s RV AcT/ET 0.6 FINDINGS Left Ventricle Normal left ventricular size and systolic function, EF 55 %. ( visual). Somewhat dyskinetic basal septal segment Right Ventricle The right ventricle is normal in size and function. Right Atrium The right atrium is normal in size. Left Atrium Mildly increased left atrial size. Mitral Valve No gross abnormalities noted Aortic Valve Mild aortic valve regurgitation. Thickened aortic valve. Tricuspid Valve No gross abnormalities noted Pulmonic Valve Trace pulmonary valve regurgitation. Pericardium Normal pericardium without effusion. Aorta Normal ascending aorta dimension. CONCLUSIONS Normal left ventricular size and systolic function, EF 55 %. ( visual). Somewhat dyskinetic basal septal segment. Mildly increased left atrial size. Thickened aortic valve. Mild aortic valve regurgitation. There are no intracardiac masses. There is no pericardial effusion. No previous study is available for comparison. Dr Chris Olsen MD FAC (Electronically Signed) Final Date: 27 August 2021 15:50 S
[2021-08-27 12:27] LABS: Procalcitonin 0.11 ng/mL (0-0.5)
--- NOTE | 2021-08-27 12:46 | PC.SOCIAL ---
IMM update IMM updated with patient. Verbalized an understanding. Initialled, dated, timed, and placed in chart.
--- NOTE | 2021-08-27 13:01 | PC.CHAP ---
Pastoral Care Encounter/Spiritual Assessment Type of Contact [] Declined workers compensation defense attorney visit [] Patient/Family/Request visit [] Outpatient visit [] Follow-up visit [] Physician referral [] Code/Alert [] Routine visit [] Staff referral [] Actively dying [] Patient sleeping [] Family support [] [] Out of room [] Palliative care [] [] Receiving care in room [] Pre-surgical visit [] Trauma [] Long length of stay [] ICU visit [xx] Other:Isolation Relational/Emotional Strength [] Patient feels connected with others/family/visitors/staff [] Distress [] Loneliness/isolation [] Abandonment Spirituality of Patient [] Person of Melissa [] Attends Baptism of their Melissa [] Believes in Prayer [] Reads Bible or Amish materials [] There are Spiritual issues to be addressed Slide 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 Interventions [] Prayer [] Active listening [] Non-anxious presence [] Spiritual/emotional support [] Crisis/trauma care [] Spiritual counseling [] Bereavement support [] Provided bereavement packet [] Provided Bible/devotional materials [] Provided toy/stuffed animal, coloring book to patient or family member [] Provided Communion [] Anointing/[place] [] Salvation [] Completed spiritual assessment [] Other: Impact on Illness or Injury [] Angry [] Fearful [] Anxious [] Often cries [] Exhaustion [] Unable to work [] Unable to attend druze [] Unable to walk/stand [] Unable to read [] Unable to drive [] Unable to eat/drink [] Unable to sleep [] Unable to be with family [] Patient intubated [] Other: Summary Time spent with patient
[2021-08-27 16:46] LABS: Glucose Point of Care 137 mg/dL (70-110)
--- NOTE | 2021-08-27 19:44 | PC.NURSE ---
Received report from DEMIAN Walsh. Patient resting in bed reading at this time. Denies pain. Requested sandwich and something to drink which was provided. Discussed plan for the night. Patient verbalized understanding. No distress observed. Will continue to monitor.
[2021-08-27] MEDS: cefTRIAXone 1,000 MG in sodium chloride 0.9% (plus) 50 ML 100 MG IV (19:56)
[2021-08-27 20:11] LABS: Glucose Point of Care 201 mg/dL (70-110)
[2021-08-28] VITALS (18 sets, daily range): BP systolic 101–126; BP diastolic 57–74; PULSE 58–121; RESP 16–25; TEMP 36.3–36.7; O2SAT 88–95
[2021-08-28] MEDS: ipratropium-albuterol 3 mL Neb INHALATION ×4 (02:54→20:29)
[2021-08-28 04:46] LABS: ABG PCO2 35.3 mmHg (35-45); ABG PH Result 7.47 (7.35-7.45); Arterial Blood Gas Hematocrit 37.7 % (42-52); Blood Gas Allen Test Pos; Blood Gas Sample Type Arterial; Carboxyhemoglobin 0.5 %THgb (0.4-20.1); HCO3 ABG 25.5 mmol/L (22-26); HGB O2 Sat 88.8 % (95-100); Ionized Calcium Level - ABG 1.2 mmol/L (1.1-1.4); Methemoglobin 0.9 % (0.4-1.5); PO2 ABG 54.5 mmHg (80.0-100.0); Potassium Level - ABG 4.4 mmol/L (3.5-5.0); Total Hemoglobin 12.3 g/dL (14-18)
[2021-08-28 04:47] LABS: Alveolar-Arterial Oxygen Gradi 60.2 mmHg (5-10); Blood Gas Sample Site Radial, left; Oxygen Device NC
[2021-08-28 05:00] LABS: Basophils % 0.1 %; Hematocrit 37.4 % (42.0-52.0); Hemoglobin 12.4 g/dL (11.7-16.6); Lymphocytes # 0.5 10^3/uL (0.8-4.8); Lymphocytes % 2.7 %; Mean Corpuscular HGB Conc 33.2 g/dL (30.0-36.0); Mean Corpuscular Volume 93.5 fl (80-94); Mean Platelet Volume 10.2 fL (7.4-10.4); Monocytes # 0.8 10^3/uL (0.2-0.9); Monocytes % 4.5 %; Neutrophils # 15.76 10^3/uL (1.8-7.7); Neutrophils % 90.6 %; Nucleated Red Blood Cells % 0 %; Platelet Count 232 10^3/cmm (130-400); Red Cell Distribution Width 12.4 % (12.1-15.1); White Blood Count 17.4 10^3/uL (4.0-10.0)
[2021-08-28 05:18] LABS: Anion Gap 17.6 (5-19); Blood Urea Nitrogen 64 mg/dL (8-23); Calcium 7.9 mg/dL (8.5-10.5); Carbon Dioxide 24 mmol/L (22-29); Chloride 100 mmol/L (98-107); Glucose 190 mg/dL (65-115); Magnesium 2.1 mg/dL (1.7-2.3); Osmolality Calculated 307 mOsm/kg (285-295); Potassium 4.6 mmol/L (3.5-5.1); Sodium 137 mmol/L (136-145)
[2021-08-28 06:28] LABS: Glucose Point of Care 198 mg/dL (70-110)
[2021-08-28] MEDS: insulin lispro 100 unit/1 mL SUBCUT ×2 (08:27→11:29)
[2021-08-28] MEDS: zinc gluconate 50 mg Tablet PO (08:27)
[2021-08-28] MEDS: pantoprazole DR 40 mg Tablet PO (08:27)
[2021-08-28] MEDS: cholecalciferol (vitamin D3) 1,000 unit Tablet 2000 UNIT PO (08:27)
[2021-08-28] MEDS: ascorbic acid 500 mg Tablet 1000 MG PO ×2 (08:27→17:04)
[2021-08-28] MEDS: apixaban 5 mg Tablet PO ×2 (08:27→17:04)
[2021-08-28] MEDS: PARoxetine 20 mg Tablet PO (08:27)
[2021-08-28] MEDS: FUROsemide 10 mg/mL SDV 4mL 40 MG IVP ×2 (08:27→22:05)
[2021-08-28] MEDS: vancomycin 1,500 MG/300 ML PIGGYBACK 200 MG IV (08:49)
--- NOTE | 2021-08-28 09:03 | PC.NURSE ---
Rounds with Dr mayer at bedside instructions recieved to start home dose metoprolol 12.5 po 0900,2100
[2021-08-28] MEDS: metoprolol tartrate 25 mg Tablet 12.5 MG PO ×2 (09:29→21:56)
[2021-08-28] MEDS: piperacillin-tazobactam 3.375 GM in sodium chloride 0.9% (plus) 50 ML IV ×2 (10:53→17:46)
[2021-08-28 11:22] LABS: Glucose Point of Care 251 mg/dL (70-110)
--- NOTE | 2021-08-28 12:51 | P.PN_ITS ---
Subjective Subjective: Interval history: Seen this morning. Patient reportedly subjectively feels better and is still on 80% FiO2 and 45 L flow. Also discussed his echo results with Dr. Olsen. Patient will need to be seen outpatient dental follow-up. Dr. Olsen okay with holding Entresto for now due to patient's low blood pressure. I discussed all this with the patient and he is agreeable. No acute events overnight. Vitals/I&O/Wt Last Vital Signs Temp 98.1 F 08/28/21 04:22 Pulse 80 08/28/21 08:29 Resp 18 08/28/21 08:29 BP 114/74 08/28/21 08:00 Pulse Ox 95 08/28/21 08:29 08/27/21 08/28/21 08/28/21 22:59 06:59 14:59 Intake Total 410 / 890 540 / 540 Output Total 1000 / 1000 950 / 1950 1000 / 1000 Balance -590 / -110 -950 / -1060 -460 / -460 Weight last 48 hrs Weight 110.042 kg Weight 110.54 kg Physical Exam Narrative: EXAM NARRATIVE: General: Alert oriented x3, patient seen sitting up in bed on heated high flow. Appearing very comfortable. Looks energetic. HEENT: Normocephalic, atraumatic, EOMI, breathing heated high flow 80% FiO2, 45 L flow. Cardio: Slightly tachycardic, normal S1-S2, no murmurs Respiratory: Slightly diminished bilateral air entry, coarse breath sounds at bases. No gross wheezes appreciated. No acute respiratory distress. No conversational dyspnea. GI: Abdomen soft, nontender,bowel sounds + Behavior: Appropriate and cooperative Extremities: No lower extremity edema. Urinary Catheter Management^: Ndiaye: Cath Placed During This Visit: yes Reason for Continuing Indwelling Catheter: Acute Urinary Retention or Obstruction Urinary Catheter Date of Insertion: 08/23/21 Urinary Catheter Time of Insertion: 22:11 Data : 08/28/21 04:49 08/28/21 04:49 Micro: Microbiology 08/27/21 11:55 Urine Culture - Preliminary Urine Catheterized 08/22/21 22:25 Blood Culture - Final Blood NO GROWTH AFTER 5 DAYS 08/22/21 20:50 Blood Culture - Final Blood NO GROWTH AFTER 5 DAYS 08/23/21 19:00 Gram Stain - Final Sputum - Expectorated Sputum Sputum Culture - Final Marisel albicans A&P Assessment and plan (1) Acute hypoxemic respiratory failure: Status: Acute (2) COVID-19 virus infection: Status: Acute (3) Pneumonia due to 2019-nCoV: Status: Acute (4) Atrial fibrillation: Status: Acute Qualifiers: Atrial fibrillation type: other persistent Qualified Code(s): I48.19 - Other persistent atrial fibrillation (5) Congestive heart failure: Status: Acute Qualifiers: Heart failure type: combined systolic and diastolic Heart failure chronicity: chronic Qualified Code(s): I50.42 - Chronic combined systolic (congestive) and diastolic (congestive) heart failure (6) Chronic kidney disease: Status: Acute Qualifiers: Chronic kidney disease stage: stage 3 (moderate) Qualified Code(s): N18.3 - Chronic kidney disease, stage 3 (moderate) (7) Aortic regurgitation: Status: Acute Qualifiers: Cardiac valve disease etiology: nonrheumatic Qualified Code(s): I35.1 - Nonrheumatic aortic (valve) insufficiency Additional A&P Information #Acute hypoxic respiratory failure secondary to COVID-19 pneumonia #Hypotension,? Adrenal insufficiency? Morning cortisol low. Chronic hypotens ion as per the patient. #Acute kidney injury on CKD 3 #Anemia #Atrial fibrillation generally rate controlled #Chronic systolic congestive heart failure on Entresto at home, last EF 45%. #History of aortic regurgitation nonrheumatic Hospital course so far ?Patient presented with COVID-19 pneumonia. He has been on dexamethasone was, vitamins. Dexamethasone was switched to Solu-Medrol after morning cortisol was found to be low. He also received 1 dose of Tocilizumab. He also required pressors briefly in the ICU secondary to hypotension. He was able to be weaned off. Patient states his blood pressure is chronically low specifically in 70s systolic as he keeps a log at home. His atrial fibrillation is currently rate controlled. He does get slightly tachycardic after getting a breathing treatment. Troponin was also slightly elevated possibly secondary to demand ischemia. He was on 100% FiO2 up until 08/26/2021. Today FiO2 80%, 55 L flow rate. Patient is currently on Eliquis for his atrial fibrillation and DVT prophylaxis. Entresto is being held at this time. Today's plan 08/27/2021 -Continue Eliquis twice daily ?Patient's hypotension required Levophed shortly in the ICU and ceftriaxone was initiated for possible sepsis. Patient has had 4 doses so far. I will let him have 1 more dose to complete 5 days and de-escalate possibly by tomorrow. Procalcitonin is low. ?Atrial fibrillation is currently rate controlled. He does become slightly tachycardic after breathing treatment. We will continue to watch for now. Patient is on metoprolol tartrate 12.5 twice daily at home. I will restart this. -He has been on Lasix 40 mg IV twice daily. Last echo we have is from 2019 which showed EF 45% with moderate aortic valve regurgitation. BNP 2800 on 08/25/2021. He was on Lasix 40 IV twice daily. I will de-escalate to Lasix 40 daily for now. Ejection fraction 55%. Echo results discussed with Dr. Olsen. He is okay with holding Entresto for now due to low blood pressure. Patient will need to follow-up with him as an outpatient once discharged. -Continue patient on Solu-Medrol 40 IV twice daily. We will continue the steroid dose for now. -Continue patient on heated high flow, escalate to BiPAP versus intubation if needed. Note from previous doctor does mention that this was discussed with the family and patient willing to be intubated if required. ?We will have a family meeting at 1 PM today to update the daughter and the patient in detail. -We will add physical therapy consult for patient once oxygen requirement is better. DVT prophylaxis: On Eliquis Full code Daughter updated at bedside in person yesterday and today over the phone. Prognosis is guarded Attestations Medical Necessity Statement*: Greater than 48-hour stay as has high oxygen requirements. 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
[2021-08-28 17:47] LABS: Glucose Point of Care 139 mg/dL (70-110)
[2021-08-28 21:12] LABS: Glucose Point of Care 273 mg/dL (70-110)
[2021-08-29] VITALS (17 sets, daily range): BP systolic 88–110; BP diastolic 50–67; PULSE 58–89; RESP 16–23; TEMP 36.4–37.2; O2SAT 88–92
[2021-08-29] MEDS: vancomycin 1,500 MG/300 ML PIGGYBACK 200 MG IV (01:23)
[2021-08-29] MEDS: ipratropium-albuterol 3 mL Neb INHALATION ×4 (02:50→21:00)
[2021-08-29] MEDS: piperacillin-tazobactam 3.375 GM in sodium chloride 0.9% (plus) 50 ML IV ×3 (03:29→18:46)
[2021-08-29 05:48] LABS: Basophils % 0.2 %; Hematocrit 38.4 % (42.0-52.0); Hemoglobin 12.9 g/dL (11.7-16.6); Lymphocytes # 0.5 10^3/uL (0.8-4.8); Lymphocytes % 2.5 %; Mean Corpuscular HGB Conc 33.6 g/dL (30.0-36.0); Mean Corpuscular Hemoglobin 31.7 pg (28.0-34.0); Mean Corpuscular Volume 94.3 fl (80-94); Mean Platelet Volume 10.7 fL (7.4-10.4); Monocytes # 0.8 10^3/uL (0.2-0.9); Monocytes % 3.9 %; Neutrophils # 18.56 10^3/uL (1.8-7.7); Neutrophils % 89.5 %; Nucleated Red Blood Cells % 0.1 %; Platelet Count 220 10^3/cmm (130-400); Red Blood Count 4.07 10^6/uL (4.1-5.3); Red Cell Distribution Width 12.4 % (12.1-15.1); White Blood Count 20.8 10^3/uL (4.0-10.0)
[2021-08-29 06:09] LABS: Anion Gap 18.7 (5-19); Blood Urea Nitrogen 65 mg/dL (8-23); Calcium 8.1 mg/dL (8.5-10.5); Carbon Dioxide 23 mmol/L (22-29); Chloride 100 mmol/L (98-107); Glucose 168 mg/dL (65-115); Magnesium 2.1 mg/dL (1.7-2.3); Osmolality Calculated 307 mOsm/kg (285-295); Potassium 4.7 mmol/L (3.5-5.1); Sodium 137 mmol/L (136-145)
[2021-08-29 06:31] LABS: Glucose Point of Care 190 mg/dL (70-110)
--- NOTE | 2021-08-29 07:58 | XRR_ITS ---
PROCEDURE INFORMATION: Exam: XR Chest Exam date and time: 08/29/2021 7:58 AM Age: 81 years old Clinical indication: Shortness of breath; Additional info: Hypoxia TECHNIQUE: Imaging protocol: XR of the chest. Views: 1 view. COMPARISON: CR (CHEST, ) 08/27/2021 6:25 AM FINDINGS: Lungs: There are mild interstitial infiltrates that have improved since previous study. . Pleural spaces: Unremarkable. No pleural effusion. No pneumothorax. Heart/Mediastinum: The cardiac silhouette is enlarged but unchanged. Bones/joints: Unremarkable. XR/XR chest 1V portable [id number] IMPRESSION: Improving mild interstitial pulmonary infiltrates.
[2021-08-29] MEDS: insulin lispro 100 unit/1 mL SUBCUT ×3 (09:13→18:46)
[2021-08-29] MEDS: pantoprazole DR 40 mg Tablet PO (09:14)
[2021-08-29] MEDS: PARoxetine 20 mg Tablet PO (09:14)
[2021-08-29] MEDS: apixaban 5 mg Tablet PO ×2 (09:14→18:46)
[2021-08-29] MEDS: ascorbic acid 500 mg Tablet 1000 MG PO ×2 (09:14→18:46)
[2021-08-29] MEDS: zinc gluconate 50 mg Tablet PO (09:14)
[2021-08-29] MEDS: metoprolol tartrate 25 mg Tablet 12.5 MG PO ×2 (09:14→21:48)
[2021-08-29] MEDS: FUROsemide 10 mg/mL SDV 4mL 40 MG IVP ×2 (09:15→22:24)
[2021-08-29] MEDS: cholecalciferol (vitamin D3) 1,000 unit Tablet 2000 UNIT PO (09:15)
[2021-08-29 11:19] LABS: Glucose Point of Care 226 mg/dL (70-110)
--- NOTE | 2021-08-29 13:04 | PC.SOCIAL ---
IMM update IMM Not updated as patient is still on 80% FIO2 and not expected to DC in the next 24-48 hours.
--- NOTE | 2021-08-29 15:34 | PM.PN ---
Subjective Subjective: Interval history: Seen this AM. Feeling same as yesterday. He feels great. Participating well with RT with use of incentive spirometry and acapella. Offers no complaints. Vitals/I&O/Wt Last Vital Signs Temp 98.9 F 08/29/21 15:23 Pulse 58 L 08/29/21 15:23 Resp 17 08/29/21 15:23 BP 88/50 08/29/21 15:23 Pulse Ox 89 L 08/29/21 15:23 08/29/21 08/29/21 08/29/21 06:59 14:59 22:59 Intake Total 880 / 2220 410 / 410 50 / 460 Output Total 2200 / 5750 750 / 750 Balance -1320 / -3530 -340 / -340 50 / -290 Weight last 48 hrs Weight 109.996 kg Weight 110.042 kg Physical Exam Narrative: EXAM NARRATIVE: General: Alert oriented x3, patient seen sitting up in bed on heated high flow. Appearing very comfortable. Looks energetic. HEENT: Normocephalic, atraumatic, EOMI, breathing heated high flow 80% FiO2, 45 L flow. O2 requirement has not changed since yesterday. Cardio: Slightly tachycardic, normal S1-S2, no murmurs Respiratory: Slightly diminished bilateral air entry, coarse breath sounds at bases. No gross wheezes appreciated. No acute respiratory distress. No conversational dyspnea. GI: Abdomen soft, nontender,bowel sounds + Behavior: Appropriate and cooperative Extremities: No lower extremity edema. Urinary Catheter Management^: Ndiaye: Cath Placed During This Visit: yes Reason for Continuing Indwelling Catheter: Acute Urinary Retention or Obstruction Urinary Catheter Date of Insertion: 08/23/21 Urinary Catheter Time of Insertion: 22:11 Data : 08/29/21 05:29 08/29/21 05:29 Micro: Microbiology 08/27/21 11:55 Urine Culture - Final Urine Catheterized 08/28/21 11:05 MRSA Culture - Final Nose 08/28/21 11:05 Bacterial Antigens - Final Urine,Clean Catch 08/28/21 11:05 Legionella Urinary Antigen - Final Urine Catheterized A&P Assessment and plan (1) Acute hypoxemic respiratory failure: Status: Acute (2) COVID-19 virus infection: Status: Acute (3) Pneumonia due to 2019-nCoV: Status: Acute (4) Atrial fibrillation: Status: Acute Qualifiers: Atrial fibrillation type: other persistent Qualified Code(s): I48.19 - Other persistent atrial fibrillation (5) Congestive heart failure: Status: Acute Qualifiers: Heart failure type: combined systolic and diastolic Heart failure chronicity: chronic Qualified Code(s): I50.42 - Chronic combined systolic (congestive) and diastolic (congestive) heart failure (6) Chronic kidney disease: Status: Acute Qualifiers: Chronic kidney disease stage: stage 3 (moderate) Qualified Code(s): N18.3 - Chronic kidney disease, stage 3 (moderate) (7) Aortic regurgitation: Status: Acute Qualifiers: Cardiac valve disease etiology: nonrheumatic Qualified Code(s): I35.1 - Nonrheumatic aortic (valve) insufficiency Additional A&P Information #Acute hypoxic respiratory failure secondary to COVID-19 pneumonia #Hypotension,? Adrenal insufficiency? Morning cortisol low. Chronic hypotension as per the patient. #Acute kidney injury on CKD 3 #Anemia #Atrial fibrillation generally rate controlled #Chronic systolic congestive heart failure on Entresto at home, last EF 45%. #History of aortic regurgitation nonrheumatic Hospital course so far ?Patient presented with COVID-19 pneumonia. He has been on dexamethasone was, vitamins. Dexamethasone was switched to Solu-Medrol after morning cortisol was found to be low. He also received 1 dose of Tocilizumab. He also required pressors briefly in the ICU secondary to hypotension. He was able to be weaned off. Patient states his blood pressure is chronically low specifically in 70s systolic as he keeps a log at home. His atrial fibrillation is currently rate controlled. He does get slightly tachycardic after getting a breathing treatment. Troponin was also slightly elevated possibly secondary to demand ischemia. He was on 100% FiO2 up until 08/26/2021. Today FiO2 80%, 55 L flow rate. Patient is currently on Eliquis for his atrial fibrillation and DVT prophylaxis. Entresto is being held at this time. Today's plan 08/29/2021 -Continue Eliquis twice daily ?Patient's hypotension required Levophed shortly in the ICU and ceftriaxone was initiated for possible sepsis. Patient has had 4 doses so far. I will let him have 1 more dose to complete 5 days and de-escalate possibly by tomorrow. Procalcitonin is low. ?Atrial fibrillation is currently rate controlled. He does become slightly tachycardic after breathing treatment. We will continue to watch for now. Patient is on metoprolol tartrate 12.5 twice daily at home which was restarted 08/28/2021 -He has been on Lasix 40 mg IV twice daily. Last echo we have is from 2019 which showed EF 45% with moderate aortic valve regurgitation. BNP 2800 on 08/25/2021. He was on Lasix 40 IV twice daily. I will de-escalate to Lasix 40 daily for now. Repeat echo this admission showed Ejection fraction 55%. Echo results discussed with Dr. Olsen. He is okay with holding Entresto for now due to low blood pressure. Patient will need to follow-up with him as an outpatient once discharged. -Continue patient on Solu-Medrol 40 IV twice daily. We will continue the steroid dose for now. -Continue patient on heated high flow, escalate to BiPAP versus intubation if needed. Note from previous doctor does mention that this was discussed with the family and patient willing to be intubated if required. ?Daughter was updated on phone 08/28/2021. - Patient still on 80% FiO2. Will continue to monitor. - WBC did go upto 20,000. Empiric vanc plus zosyn were added. Procal pending. Bacterial antigens negative so far. Sputum culture pending. MRSA nares negative. Will stop vanc. -We will add physical therapy consult for patient once oxygen requirement is better. DVT prophylaxis: On Eliquis Full code Prognosis is guarded Attestations Medical Necessity Statement*: > 48 hours stay. Till has very high O2 requirements. 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
[2021-08-29 17:14] LABS: Glucose Point of Care 149 mg/dL (70-110)
[2021-08-29 21:16] LABS: Glucose Point of Care 258 mg/dL (70-110)
[2021-08-30] VITALS (16 sets, daily range): BP systolic 94–112; BP diastolic 41–62; PULSE 61–91; RESP 16–20; TEMP 36.4–36.9; O2SAT 88–96
[2021-08-30] MEDS: piperacillin-tazobactam 3.375 GM in sodium chloride 0.9% (plus) 50 ML IV ×2 (02:17→10:09)
[2021-08-30] MEDS: ipratropium-albuterol 3 mL Neb INHALATION ×4 (03:21→21:09)
[2021-08-30 03:58] LABS: ABG PCO2 35.7 mmHg (35-45); ABG PH Result 7.49 (7.35-7.45); Arterial Blood Gas Hematocrit 42.9 % (42-52); Base Excess ABG 4.2 mmol/L (-2.0-2.0); Blood Gas Allen Test Pos; Blood Gas Sample Site Radial, right; Blood Gas Sample Type Arterial; Carboxyhemoglobin 0.4 %THgb (0.4-20.1); HCO3 ABG 27.4 mmol/L (22-26); HGB O2 Sat 89.9 % (95-100); Ionized Calcium Level - ABG 1.2 mmol/L (1.1-1.4); Methemoglobin 0.6 % (0.4-1.5); Oxygen Device HAG; Oxygen Saturation ABG 90.8; PO2 ABG 54.6 mmHg (80.0-100.0); Potassium Level - ABG 3.8 mmol/L (3.5-5.0)
[2021-08-30 06:47] LABS: Glucose Point of Care 204 mg/dL (70-110)
[2021-08-30 07:19] LABS: Basophils % 0.2 %; Eosinophils % 0.1 %; Hematocrit 40.7 % (42.0-52.0); Hemoglobin 13.8 g/dL (11.7-16.6); Lymphocytes # 0.6 10^3/uL (0.8-4.8); Lymphocytes % 3.7 %; Mean Corpuscular HGB Conc 33.9 g/dL (30.0-36.0); Mean Corpuscular Hemoglobin 31.4 pg (28.0-34.0); Mean Corpuscular Volume 92.5 fl (80-94); Mean Platelet Volume 10.3 fL (7.4-10.4); Monocytes # 0.8 10^3/uL (0.2-0.9); Monocytes % 4.4 %; Neutrophils # 14.85 10^3/uL (1.8-7.7); Neutrophils % 86.6 %; Nucleated Red Blood Cells % 0 %; Platelet Count 265 10^3/cmm (130-400); Red Cell Distribution Width 12.2 % (12.1-15.1); White Blood Count 17.2 10^3/uL (4.0-10.0)
[2021-08-30 07:41] LABS: Anion Gap 18.3 (5-19); Blood Urea Nitrogen 61 mg/dL (8-23); Carbon Dioxide 24 mmol/L (22-29); Chloride 99 mmol/L (98-107); Glucose 183 mg/dL (65-115); Magnesium 2.1 mg/dL (1.7-2.3); Osmolality Calculated 306 mOsm/kg (285-295); Potassium 4.3 mmol/L (3.5-5.1); Sodium 137 mmol/L (136-145)
[2021-08-30] MEDS: insulin lispro 100 unit/1 mL SUBCUT ×3 (08:49→17:53)
[2021-08-30] MEDS: ascorbic acid 500 mg Tablet 1000 MG PO ×2 (08:50→17:53)
[2021-08-30] MEDS: pantoprazole DR 40 mg Tablet PO (08:50)
[2021-08-30] MEDS: cholecalciferol (vitamin D3) 1,000 unit Tablet 2000 UNIT PO (08:50)
[2021-08-30] MEDS: zinc gluconate 50 mg Tablet PO (08:50)
[2021-08-30] MEDS: apixaban 5 mg Tablet PO ×2 (08:50→17:53)
[2021-08-30] MEDS: PARoxetine 20 mg Tablet PO (08:50)
[2021-08-30 12:01] LABS: Glucose Point of Care 342 mg/dL (70-110)
--- NOTE | 2021-08-30 13:30 | P.PN_ITS ---
Subjective Subjective: Interval history: Seen this morning. Patient was on 67% FiO2 45 L flow. By the afternoon he was on 15 L high flow nasal cannula. He is making good progress. He is in good spirits. When I walked into the room patient was singing a song. Vitals/I&O/Wt Last Vital Signs Temp 98.5 F 08/30/21 11:25 Pulse 82 08/30/21 11:25 Resp 18 08/30/21 11:25 BP 97/61 08/30/21 11:25 Pulse Ox 91 08/30/21 11:25 08/29/21 08/30/21 08/30/21 22:59 06:59 14:59 Intake Total 460 / 870 240 / 1110 170 / 170 Output Total 2520 / 3270 Balance 460 / 120 -2280 / -2160 170 / 170 Weight last 48 hrs Weight 89.539 kg Weight 106.095 kg Weight 109.996 kg Physical Exam Narrative: EXAM NARRATIVE: General: Alert oriented x3, patient seen sitting up in bed appearing comfortable singing a song. HEENT: Normocephalic, atraumatic, EOMI, breathing heated high flow 67% FiO2, 45 L flow. O2 requirement has not changed since yesterday. Cardio: Regular rate rhythm, normal S1-S2, no murmurs Respiratory: Slightly diminished bilateral air entry, coarse breath sounds at bases. No gross wheezes appreciated. No acute respiratory distress. No conversational dyspnea. GI: Abdomen soft, nontender,bowel sounds + Behavior: Appropriate and cooperative Extremities: No lower extremity edema. Urinary Catheter Management^: Ndiaye: Cath Placed During This Visit: yes Reason for Continuing Indwelling Catheter: Acute Urinary Retention or Obstruction Urinary Catheter Date of Insertion: 08/23/21 Urinary Catheter Time of Insertion: 22:11 Data : 08/30/21 06:47 08/30/21 06:47 Micro: Microbiology 08/29/21 16:10 Blood Culture - Preliminary Blood SPECIMEN COLLECTED 08/29/21 16:00 Blood Culture - Preliminary Blood SPECIMEN COLLECTED 08/27/21 11:55 Urine Culture - Final Urine Catheterized 08/28/21 11:05 MRSA Culture - Final Nose A&P Assessment and plan (1) Acute hypoxemic respiratory failure: Status: Acute (2) COVID-19 virus infection: Status: Acute (3) Pneumonia due to 2019-nCoV: Status: Acute (4) Atrial fibrillation: Status: Acute Qualifiers: Atrial fibrillation type: other persistent Qualified Code(s): I48.19 - Other persistent atrial fibrillation (5) Congestive heart failure: Status: Acute Qualifiers: Heart failure type: combined systolic and diastolic Heart failure chronicity: chronic Qualified Code(s): I50.42 - Chronic combined systolic (congestive) and diastolic (congestive) heart failure (6) Chronic kidney disease: Status: Acute Qualifiers: Chronic kidney disease stage: stage 3 (moderate) Qualified Code(s): N18.3 - Chronic kidney disease, stage 3 (moderate) (7) Aortic regurgitation: Status: Acute Qualifiers: Cardiac valve disease etiology: nonrheumatic Qualified Code(s): I35.1 - Nonrheumatic aortic (valve) insufficiency Additional A&P Information #Acute hypoxic respiratory failure secondary to COVID-19 pneumonia #Hypotension,? Adrenal insufficiency? Morning cortisol low. Chronic hypotension as per the patient. #Acute kidney injury on CKD 3 #Anemia #Atrial fibrillation generally rate controlled #Chronic systolic congestive heart failure on Entresto at home, last EF 45%. #History of aortic regurgitation nonrheumatic Hospital course so far ?Patient presented with COVID-19 pneumonia. He has been on dexamethasone was, vitamins. Dexamethasone was switched to Solu-Medrol after morning cortisol was found to be low. He also received 1 dose of Tocilizumab. He also required pressors briefly in the ICU secondary to hypotension. He was able to be weaned off. Patient states his blood pressure is chronically low specifically in 70s systolic as he keeps a log at home. His atrial fibrillation is currently rate controlled. He does get slightly tachycardic after getting a breathing treatment. Troponin was also slightly elevated possibly secondary to demand ischemia. On 67% FiO2 and 45 L flow. Patient is currently on Eliquis for his atrial fibrillation and DVT prophylaxis. Entresto is being held at this time. Has been transitioned to 15 L high flow nasal cannula. Today's plan 08/30/2021 -Continue Eliquis twice daily ?Patient's hypotension required Levophed shortly in the ICU and ceftriaxone was initiated for possible sepsis. Patient has had 4 doses so far. I will let him have 1 more dose to complete 5 days and de-escalate possibly by tomorrow. Procalcitonin is low. ?Atrial fibrillation is currently rate controlled. He does become slightly tachycardic after breathing treatment. We will continue to watch for now. Patient is on metoprolol tartrate 12.5 twice daily at home which was restarted 08/28/2021 -He has been on Lasix 40 mg IV twice daily. Last echo we have is from 2019 which showed EF 45% with moderate aortic valve regurgitation. BNP 2800 on 08/25/2021. He was on Lasix 40 IV twice daily. I will de-escalate to Lasix 40 daily for now. Repeat echo this admission showed Ejection fraction 55%. Echo results discussed with Dr. Olsen. He is okay with holding Entresto for now due to low blood pressure. Patient will need to follow-up with him as an outpatient once discharged. I will switch him from IV Lasix to oral today. -Continue patient on Solu-Medrol 40 IV twice daily. We will continue the steroid dose for now. We will give him a steroid taper. I will switch to Solu- Medrol 40 daily by tomorrow. -Continue patient on 15 L high flow nasal cannula and de-escalate as able. - WBC did go upto 20,000. Today WBC 17,000. Empiric vanc plus zosyn were added. Procal pending. Bacterial antigens negative so far. Sputum culture pending. MRSA nares negative. Will stop vanc. I would also stop Zosyn today and switch to oral Levaquin 750 daily and complete 7-day course. -We will add physical therapy consult for patient once oxygen requirement is better. 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
[2021-08-30 17:10] LABS: Glucose Point of Care 240 mg/dL (70-110)
--- NOTE | 2021-08-30 20:00 | PC.NURSE ---
Addendum entered by Yesi Patel RN 08/31/21 00:22: correction O2 45L/62 HF RT Adelaida notified at this time O2 sats 86% Original Note: Shift report received from Denise ARCINIEGA. Patient in bed/watching TV. Denies pain. O2 HF 15L. Ndiaye patent and draining clear yellow urine. IV patent. No needs voiced at this time.
[2021-08-30 21:13] LABS: Glucose Point of Care 232 mg/dL (70-110)
[2021-08-30] MEDS: metoprolol tartrate 25 mg Tablet 12.5 MG PO (22:19)
[2021-08-31] VITALS (13 sets, daily range): BP systolic 94–115; BP diastolic 54–67; PULSE 63–86; RESP 16–18; TEMP 36.5–36.8; O2SAT 86–97
[2021-08-31] MEDS: ipratropium-albuterol 3 mL Neb INHALATION ×4 (02:51→20:52)
[2021-08-31 05:23] LABS: Blood Urea Nitrogen 59 mg/dL (8-23); Calcium 7.9 mg/dL (8.5-10.5); Carbon Dioxide 21 mmol/L (22-29); Chloride 101 mmol/L (98-107); Glucose 143 mg/dL (65-115); Magnesium 2.2 mg/dL (1.7-2.3); Osmolality Calculated 303 mOsm/kg (285-295); Sodium 137 mmol/L (136-145)
[2021-08-31 05:28] LABS: Anion Gap 19.7 (5-19); Potassium 4.7 mmol/L (3.5-5.1)
[2021-08-31] MEDS: levoFLOXacin 750 mg Tablet PO (05:31)
[2021-08-31 05:36] LABS: Hematocrit 39.5 % (42.0-52.0); Hemoglobin 13.3 g/dL (11.7-16.6); Mean Corpuscular HGB Conc 33.7 g/dL (30.0-36.0); Mean Corpuscular Hemoglobin 31.7 pg (28.0-34.0); Mean Corpuscular Volume 94.3 fl (80-94); Mean Platelet Volume 10.7 fL (7.4-10.4); Platelet Count 223 10^3/cmm (130-400); Red Blood Count 4.19 10^6/uL (4.1-5.3); Red Cell Distribution Width 12.5 % (12.1-15.1); White Blood Count 18.4 10^3/uL (4.0-10.0)
[2021-08-31 06:42] LABS: Glucose Point of Care 188 mg/dL (70-110)
[2021-08-31 07:45] LABS: Slide Review Slide Review Perform
[2021-08-31 07:47] LABS: Eosinophils 0 %; Lymphocytes 2 %; Platelet Estimate Normal (Normal); Segmented Neutrophils 77 %; Total Cells Counted 100 (0-100)
--- NOTE | 2021-08-31 08:04 | CT_ITS ---
WS: [id number] CT CHEST WITHOUT INTRAVENOUS CONTRAST HISTORY: Worsening Hypoxia, bandemia TECHNIQUE: Contiguous 5 mm axial imaging performed on the thorax. Coronal and sagittal reformats are submitted. All CT scans at [facility] use at least one of these dose optimization techniques: automated exposure control; mA and/or kV adjustment per patient size (includes targeted exams where dose is matched to clinical indication); or iterative reconstruction. CONTRAST: None DLP: 927.96 mGy.cm COMPARISON: Chest radiograph 08/29/2021 and 08/27/2021 Lungs and central airway: Moderate pulmonary hyperexpansion. Groundglass attenuation is noted in all lobes. Most significant groundglass attenuation increasing opacification in the lower lobes bilateral ly but also more significantly extending into the RIGHT upper lobe in the periphery. There are a few additional areas of scattered groundglass attenuation in the remaining lobes. Pleura: Normal. No pleural effusion. Heart and pericardium: Moderate enlargement of the heart. No effusion. Mediastinum and todd: No adenopathy identified on this unenhanced study. No pneumomediastinum or pneu mopericardium. Vessels: Mild atherosclerosis aorta with no aneurysm. Pulmonary artery size is equal to the aorta. Chest wall and lower neck: Mild gynecomastia. Upper abdomen: Hepatic and splenic granulomata. Low-attenuation masses within the RIGHT kidney are li kenney cysts. No adrenal mass. Negative gallbladder. Mild atrophy of the pancreas. Osseous structures: Increase in thoracic kyphosis. CT/CT chest wo con [id number] IMPRESSION: 1. Multi lobar areas of groundglass attenuation consistent with Covid 19 diagn osis. As compared to recent chest radiograph there has been no improvement. 2. No pneumomediastinum or pneumopericardium. 3. Moderately enlarged heart.
[2021-08-31] MEDS: zinc gluconate 50 mg Tablet PO (08:47)
[2021-08-31] MEDS: insulin lispro 100 unit/1 mL SUBCUT ×3 (08:47→17:36)
[2021-08-31] MEDS: pantoprazole DR 40 mg Tablet PO (08:47)
[2021-08-31] MEDS: metoprolol tartrate 25 mg Tablet 12.5 MG PO ×2 (08:47→20:13)
[2021-08-31] MEDS: ascorbic acid 500 mg Tablet 1000 MG PO ×2 (08:47→17:36)
[2021-08-31] MEDS: cholecalciferol (vitamin D3) 1,000 unit Tablet 2000 UNIT PO (08:47)
[2021-08-31] MEDS: FUROsemide 40 mg Tablet PO ×2 (08:47→17:36)
[2021-08-31] MEDS: apixaban 5 mg Tablet PO ×2 (08:47→17:36)
[2021-08-31] MEDS: PARoxetine 20 mg Tablet PO (08:47)
[2021-08-31 08:58] LABS: Procalcitonin 0.05 ng/mL (0-0.5)
--- NOTE | 2021-08-31 09:21 | PC.SOCIAL ---
IMM Update pg 2 of IMM updated and reviewed w/ patient. Copy provided.
[2021-08-31] MEDS: piperacillin-tazobactam 3.375 GM in sodium chloride 0.9% (plus) 50 ML IV ×2 (10:25→17:36)
[2021-08-31 12:05] LABS: Glucose Point of Care 184 mg/dL (70-110)
--- NOTE | 2021-08-31 12:34 | PM.PN ---
Subjective Subjective: Interval history: Seen this morning. Patient seems in good spirits. He does state that he feels a little weak and would like to do some physical therapy. Oxygen jean baptiste he is stable on high flow nasal cannula and does not desaturate or get short of breath when he tries to get out of bed. Ndiaye catheter will be removed today as well. He did have a bandemia of 8% and white count of 18,000 today. Antibiotics were escalated up to Vanc, zosyn Levaquin. Procalcitonin was ordered. Vitals/I&O/Wt Last Vital Signs Temp 98.0 F 08/31/21 12:00 Pulse 63 08/31/21 12:00 Resp 18 08/31/21 12:00 BP 100/60 08/31/21 12:00 Pulse Ox 91 08/31/21 12:00 08/30/21 08/31/21 08/31/21 22:59 06:59 14:59 Intake Total 360 / 890 360 / 360 Output Total 850 / 1750 575 / 575 Balance 360 / -10 -850 / -860 -215 / -215 Weight last 48 hrs Weight 106.912 kg Weight 89.539 kg Physical Exam Narrative: EXAM NARRATIVE: General: Alert oriented x3, patient seen sitting up in bed on edge of bed appearing comfortable HEENT: Normocephalic, atraumatic, EOMI, breathing heated high flow 73% FiO2, 45 L flow. O2 requirement slightly increased since yesterday. Cardio: Regular rate rhythm, normal S1-S2, no murmurs Respiratory: Slightly diminished bilateral air entry, coarse breath sounds at bases. No gross wheezes appreciated. No acute respiratory distress. No conversational dyspnea. GI: Abdomen soft, nontender,bowel sounds + Behavior: Appropriate and cooperative Extremities: No lower extremity edema. Urinary Catheter Management^: Ndiaye: Cath Placed During This Visit: yes, but has since been removed by the nurse Reason for Continuing Indwelling Catheter: Acute Urinary Retention or Obstruction Urinary Catheter Date of Insertion: 08/23/21 Urinary Catheter Time of Insertion: 22:11 Date Urinary Catheter Removed: 08/31/21 Time Urinary Catheter Discontinued: 10:35 Data : 08/31/21 04:19 08/31/21 04:19 Micro: Microbiology 08/29/21 16:10 Blood Culture - Preliminary Blood NEGATIVE TO DATE 08/29/21 16:00 Blood Culture - Preliminary Blood NEGATIVE TO DATE A&P Assessment and plan (1) Acute hypoxemic respiratory failure: Status: Acute (2) COVID-19 virus infection: Status: Acute (3) Pneumonia due to 2019-nCoV: Status: Acute (4) Atrial fibrillation: Status: Acute Qualifiers: Atrial fibrillation type: other persistent Qualified Code(s): I48.19 - Other persistent atrial fibrillation (5) Congestive heart failure: Status: Acute Qualifiers: Heart failure type: combined systolic and diastolic Heart failure chronicity: chronic Qualified Code(s): I50.42 - Chronic combined systolic (congestive) and diastolic (congestive) heart failure (6) Chronic kidney disease: Status: Acute Qualifiers: Chronic kidney disease stage: stage 3 (moderate) Qualified Code(s): N18.3 - Chronic kidney disease, stage 3 (moderate) (7) Aortic regurgitation: Status: Acute Qualifiers: Cardiac valve disease etiology: nonrheumatic Qualified Code(s): I35.1 - Nonrheumatic aortic (valve) insufficiency Additional A&P Information #Acute hypoxic respiratory failure secondary to COVID-19 pneumonia #Hypotension,? Adrenal insufficiency? Morning cortisol low. Chronic hypotension as per the patient. #Acute kidney injury on CKD 3 #Anemia #Atrial fibrillation generally rate controlled #Chronic systolic congestive heart failure on Entresto at home, last EF 45%. #History of aortic regurgitation nonrheumatic Hospital course so far ?Patient presented with COVID-19 pneumonia. He has been on dexamethasone was, vitamins. Dexamethasone was switched to Solu-Medrol after morning cortisol was found to be low. He also received 1 dose of Tocilizumab. He also required pressors briefly in the ICU secondary to hypotension. He was able to be weaned off. Patient states his blood pressure is chronically low specifically in 70s systolic as he keeps a log at home. His atrial fibrillation is currently rate controlled. He does get slightly tachycardic after getting a breathing treatment. Troponin was also slightly elevated possibly secondary to demand ischemia. On 67% FiO2 and 45 L flow. Patient is currently on Eliquis for his atrial fibrillation and DVT prophylaxis. Entresto is being held at this time. Has been transitioned to 15 L high flow nasal cannula. Today's plan 08/31/2021 -Continue Eliquis twice daily ?Patient's hypotension required Levophed shortly in the ICU and ceftriaxone was initiated for possible sepsis. Patient has had 4 doses so far. I will let him have 1 more dose to complete 5 days and de-escalate possibly by tomorrow. Procalcitonin is low. ?Atrial fibrillation is currently rate controlled. COnitnue lopressor 12.5 BID -Continue lasix 40 PO BID -Change to solu-medrol 40 IV daily today. Will start taper tomorrow. He will need endocrinology f/u at discharge. -Continue patient on 73% FIo2 high flow nasal cannula and de-escalate as able. - WBC did go upto 20,000. Today WBC 18,000. Bandemia today 8%. Empiric vanc plus zosyn were added, Will continue levaquin as well. Procal 0.05. Bacterial antigens negative so far. Sputum culture pending. MRSA nares negative. CT chest shows no improvement. Will check CT sinuses. He states he has chronic sinus infections. BCx NTD. -PT to see today. DVT prophylaxis: On Eliquis Full code Attestations Medical Necessity Statement*: > 48 hours Coding Level of Care Code Acute Beam Department Supervisor for [facility] Fwd Diagnoses Acute hypoxemic respiratory failure J96.01 COVID-19 virus infection U07.1 Pneumonia due to 2019-nCoV U07.1; J12.82 Atrial fibrillation I48.19 Atrial fibrillation type: other persistent Congestive heart failure I50.42 Heart failure type: combined systolic and diastolic Heart failure chronicity: chronic Chronic kidney disease N18.3 Chronic kidney disease stage: stage 3 (moderate) Aortic regurgitation I35.1 Cardiac valve disease etiology: nonrheumatic
--- NOTE | 2021-08-31 14:00 | CT_ITS ---
WS: [id number] CT PARANASAL SINUSES HISTORY: rule out infection TECHNIQUE: Contiguous 2.5 mm axial images obtained through the sinuses. Images are reconstructed in s agittal and coronal planes. All CT scans at [facility] use at least one of these dose optimiz ation techniques: automated exposure control; mA and/or kV adjustment per patient size (includes targ eted exams where dose is matched to clinical indication); or iterative reconstruction. DLP: 471.35 mGy.cm COMPARISON: None available. Frontal sinuses: Clear. There are pneumatization on the LEFT. Sphenoid sinus: No air-fluid levels. Very minimal mucoperiosteal thickening involving the LEFT anteri or sphenoid sinus. Ethmoid sinuses: Clear. Maxillary sinus: Very minimal mucoperiosteal thickening in the floor of the LEFT maxillary sinus. No air-fluid levels. Ostiomeatal unit: Clear. Moderate atherosclerotic plaque within the intracranial carotid arteries. CT/CT sinus wo con* [id number] IMPRESSION: 1. No air-fluid levels within the paranasal sinuses. 2. Very minimal mucoperiosteal thickening in the LEFT sphenoid and maxillary s inus.
[2021-08-31] MEDS: linezolid premix 600 MG/300 ML PREMIX 300 MG IV (15:50)
[2021-08-31 17:17] LABS: Glucose Point of Care 165 mg/dL (70-110)
--- NOTE | 2021-08-31 20:25 | PC.NURSE ---
1919 Shift report received from Denise ARCINIEGA. Patient awake in bed. Denies pain. IV patent/infusing antibiotic. O2 HF 40/65. No needs voiced at this time. 2009 Jolly BERRY reported to this nurse patient's O2 was 86%. RT notified/ this nurse rechecked at 2019 O2 sats was 94%. No needs voiced at this time.
[2021-08-31 21:07] LABS: Glucose Point of Care 166 mg/dL (70-110)
[2021-09-01] VITALS (12 sets, daily range): BP systolic 96–119; BP diastolic 50–69; PULSE 20–91; RESP 16–64; TEMP 36.4–37; O2SAT 90–96
[2021-09-01] MEDS: piperacillin-tazobactam 3.375 GM in sodium chloride 0.9% (plus) 50 ML IV ×3 (00:56→18:29)
--- NOTE | 2021-09-01 01:06 | PC.NURSE ---
Patient refuses to wear telemetry /education provided.
[2021-09-01] MEDS: ipratropium-albuterol 3 mL Neb INHALATION ×4 (02:25→21:26)
[2021-09-01] MEDS: linezolid premix 600 MG/300 ML PREMIX 300 MG IV ×2 (03:24→18:28)
[2021-09-01 06:10] LABS: Basophils % 0.2 %; Eosinophils # 0.2 10^3/uL (0.0-0.8); Eosinophils % 1.4 %; Hematocrit 40.4 % (42.0-52.0); Hemoglobin 13.1 g/dL (11.7-16.6); Lymphocytes # 0.9 10^3/uL (0.8-4.8); Lymphocytes % 6.7 %; Mean Corpuscular HGB Conc 32.4 g/dL (30.0-36.0); Mean Corpuscular Volume 95.7 fl (80-94); Mean Platelet Volume 10.4 fL (7.4-10.4); Monocytes # 0.8 10^3/uL (0.2-0.9); Neutrophils # 10.42 10^3/uL (1.8-7.7); Neutrophils % 80.8 %; Nucleated Red Blood Cells % 0.2 %; Platelet Count 223 10^3/cmm (130-400); Red Blood Count 4.22 10^6/uL (4.1-5.3); Red Cell Distribution Width 12.4 % (12.1-15.1); White Blood Count 12.9 10^3/uL (4.0-10.0)
[2021-09-01] MEDS: levoFLOXacin 750 mg Tablet PO (06:17)
[2021-09-01 06:37] LABS: Anion Gap 19.4 (5-19); Blood Urea Nitrogen 61 mg/dL (8-23); Carbon Dioxide 22 mmol/L (22-29); Chloride 99 mmol/L (98-107); Glucose 183 mg/dL (65-115); Osmolality Calculated 306 mOsm/kg (285-295); Potassium 3.4 mmol/L (3.5-5.1); Sodium 137 mmol/L (136-145)
[2021-09-01 06:43] LABS: Glucose Point of Care 149 mg/dL (70-110)
[2021-09-01] MEDS: insulin lispro 100 unit/1 mL SUBCUT ×3 (09:07→18:31)
[2021-09-01] MEDS: ascorbic acid 500 mg Tablet 1000 MG PO ×2 (09:08→18:30)
[2021-09-01] MEDS: cholecalciferol (vitamin D3) 1,000 unit Tablet 2000 UNIT PO (09:08)
[2021-09-01] MEDS: pantoprazole DR 40 mg Tablet PO (09:08)
[2021-09-01] MEDS: PARoxetine 20 mg Tablet PO (09:08)
[2021-09-01] MEDS: metoprolol tartrate 25 mg Tablet 12.5 MG PO ×2 (09:09→21:28)
[2021-09-01] MEDS: FUROsemide 40 mg Tablet PO ×2 (09:09→18:31)
[2021-09-01] MEDS: apixaban 5 mg Tablet PO ×2 (09:09→18:31)
[2021-09-01] MEDS: zinc gluconate 50 mg Tablet PO (09:09)
--- NOTE | 2021-09-01 11:29 | PM.PN ---
Subjective Subjective: Interval history: Seen this morning. Patient is in good spirits. WBCs count came down to 12,000. Patient has been related to linezolid, Zosyn, Levaquin. Blood cultures negative to date. Facial sinuses CT does show a little bit of thickening of the maxillary sinus but otherwise unremarkable. Chest CT also shows COVID-19 pneumonia but no other evidence of bacterial pneumonia. Procalcitonin is negative. Patient is on 70% FiO2 45 L flow. He subjectively does feel better. He is able to walk with physical therapy soon. Vitals/I&O/Wt Last Vital Signs Temp 97.5 F L 09/01/21 07:27 Pulse 20 L 09/01/21 09:10 Resp 64 H 09/01/21 09:10 BP 119/66 09/01/21 07:27 Pulse Ox 91 09/01/21 09:10 08/31/21 09/01/21 09/01/21 22:59 06:59 14:59 Intake Total 830 / 1480 590 / 2070 Output Total 100 / 675 1175 / 1850 Balance 730 / 805 -585 / 220 Weight last 48 hrs Weight 107.048 kg Weight 106.912 kg Physical Exam Narrative: EXAM NARRATIVE: General: Alert oriented x3, patient seen sitting up in bed with respiratory therapist and nurse present in the room when seen today. He looks like in good spirits and is very energetic. HEENT: Normocephalic, atraumatic, EOMI, breathing heated high flow 70% FiO2, 45 L flow. Cardio: Regular rate rhythm, normal S1-S2, no murmurs Respiratory: Slightly diminished bilateral air entry, coarse breath sounds at bases. No gross wheezes appreciated. No acute respiratory distress. No conversational dyspnea. Respiratory exam unchanged from yesterday. GI: Abdomen soft, nontender,bowel sounds + Behavior: Appropriate and cooperative Extremities: No lower extremity edema. Urinary Catheter Management^: Ndiaye: Cath Placed During This Visit: yes, but has since been removed by the nurse Reason for Continuing Indwelling Catheter: Acute Urinary Retention or Obstruction Urinary Catheter Date of Insertion: 08/23/21 Urinary Catheter Time of Insertion: 22:11 Date Urinary Catheter Removed: 08/31/21 Time Urinary Catheter Discontinued: 10:35 Data : 09/01/21 05:08 09/01/21 05:08 A&P Assessment and plan (1) Acute hypoxemic respiratory failure: Status: Acute (2) COVID-19 virus infection: Status: Acute (3) Pneumonia due to 2019-nCoV: Status: Acute (4) Atrial fibrillation: Status: Acute Qualifiers: Atrial fibrillation type: other persistent Qualified Code(s): I48.19 - Other persistent atrial fibrillation (5) Congestive heart failure: Status: Acute Qualifiers: Heart failure type: combined systolic and diastolic Heart failure chronicity: chronic Qualified Code(s): I50.42 - Chronic combined systolic (congestive) and diastolic (congestive) heart failure (6) Chronic kidney disease: Status: Acute Qualifiers: Chronic kidney disease stage: stage 3 (moderate) Qualified Code(s): N18.3 - Chronic kidney disease, stage 3 (moderate) (7) Aortic regurgitation: Status: Acute Qualifiers: Cardiac valve disease etiology: nonrheumatic Qualified Code(s): I35.1 - Nonrheumatic aortic (valve) insufficiency Additional A&P Information #Acute hypoxic respiratory failure secondary to COVID-19 pneumonia #Hypotension,? Adrenal insufficiency? Morning cortisol low. Chronic hypotension as per the patient. #Acute kidney injury on CKD 3 #Anemia #Atrial fibrillation generally rate controlled #Chronic systolic congestive heart failure on Entresto at home, last EF 45%. #History of aortic regurgitation nonrheumatic Hospital course so far ?Patient presented with COVID-19 pneumonia. He has been on dexamethasone was, vitamins. Dexamethasone was switched to Solu-Medrol after morning cortisol was found to be low. He also received 1 dose of Tocilizumab. He also required pressors briefly in the ICU secondary to hypotension. He was able to be weaned off. Patient states his blood pressure is chronically low specifically in 70s systolic as he keeps a log at home. His atrial fibrillation is currently rate controlled. He does get slightly tachycardic after getting a breathing treatment. Troponin was also slightly elevated possibly secondary to demand ischemia. On70% FiO2 and 45 L flow. Patient is currently on Eliquis for his atrial fibrillation and DVT prophylaxis. Entresto is being held at this time. Today's plan 09/01/2021 -Continue Eliquis twice daily ?Patient's hypotension required Levophed shortly in the ICU and ceftriaxone was initiated for possible sepsis. Ceftriaxone was stopped after 5 days. However he had an increased white count with bandemia present. Linezolid Zosyn and Levaquin were added. After the addition white count has come down significantly and bandemia has resolved. I will continue antibiotics through IV for another day or 2 and then switch him to oral. Procalcitonin is low. CT chest and CT sinuses was also done with no acute bacterial infection evidence. ?Atrial fibrillation is currently rate controlled. Conitnue lopressor 12.5 BID -Continue lasix 40 PO BID -I will switch him to maintanance dose of steroid today for possible adrenal insufficiency. Hydrocortisone 40 in AM and 20 mg at noon until seen by endocrinology. Discussed with Dr. Collins to make her aware of patient. She will see him in clinic after discharge. -Continue patient on 70% FIo2 high flow nasal cannula and de-escalate as able. - WBC did go upto 20,000. Today WBC 12,000. Bandemia resolved. Empiric linezolid plus zosyn were added, Will continue levaquin as well. Procal 0.05. Bacterial antigens negative so far. Sputum culture pending. MRSA nares negative. BCx NTD. -Continue PT DVT prophylaxis: On Eliquis Full code Does not qualify for LTAC yet due to high O2 requirements Attestations Medical Necessity Statement*: > 72 hour stay Coding Level of Care Code Acute Business Controller for [facility] Diagnoses Acute hypoxemic respiratory failure J96.01 COVID-19 virus infection U07.1 Pneumonia due to 2019-nCoV U07.1; J12.82 Atrial fibrillation I48.19 Atrial fibrillation type: other persistent Congestive heart failure I50.42 Heart failure type: combined systolic and diastolic Heart failure chronicity: chronic Chronic kidney disease N18.3 Chronic kidney disease stage: stage 3 (moderate) Aortic regurgitation I35.1 Cardiac valve disease etiology: nonrheumatic
[2021-09-01 12:10] LABS: Glucose Point of Care 153 mg/dL (70-110)
[2021-09-01 17:26] LABS: Glucose Point of Care 206 mg/dL (70-110)
[2021-09-01 21:18] LABS: Glucose Point of Care 242 mg/dL (70-110)
[2021-09-02] VITALS (16 sets, daily range): BP systolic 98–113; BP diastolic 52–72; PULSE 58–85; RESP 14–20; TEMP 36.3–36.7; O2SAT 90–96
[2021-09-02] MEDS: piperacillin-tazobactam 3.375 GM in sodium chloride 0.9% (plus) 50 ML IV ×3 (00:30→18:15)
[2021-09-02] MEDS: linezolid premix 600 MG/300 ML PREMIX 300 MG IV ×2 (02:57→18:12)
[2021-09-02] MEDS: ipratropium-albuterol 3 mL Neb INHALATION ×4 (03:22→20:24)
[2021-09-02] MEDS: levoFLOXacin 750 mg Tablet PO (05:15)
[2021-09-02 06:45] LABS: Basophils % 0.3 %; Eosinophils # 0.1 10^3/uL (0.0-0.8); Eosinophils % 0.6 %; Hematocrit 40.5 % (42.0-52.0); Hemoglobin 13.3 g/dL (11.7-16.6); Lymphocytes # 0.6 10^3/uL (0.8-4.8); Lymphocytes % 4.7 %; Mean Corpuscular HGB Conc 32.8 g/dL (30.0-36.0); Mean Corpuscular Hemoglobin 31.1 pg (28.0-34.0); Mean Corpuscular Volume 94.8 fl (80-94); Mean Platelet Volume 10.7 fL (7.4-10.4); Monocytes # 0.8 10^3/uL (0.2-0.9); Monocytes % 6.4 %; Neutrophils # 11.06 10^3/uL (1.8-7.7); Neutrophils % 84.6 %; Nucleated Red Blood Cells % 0 %; Platelet Count 175 10^3/cmm (130-400); Red Blood Count 4.27 10^6/uL (4.1-5.3); Red Cell Distribution Width 12.5 % (12.1-15.1); White Blood Count 13.1 10^3/uL (4.0-10.0)
[2021-09-02 06:45] LABS: Glucose Point of Care 162 mg/dL (70-110)
[2021-09-02 06:55] LABS: Anion Gap 15.1 (5-19); Blood Urea Nitrogen 55 mg/dL (8-23); Calcium 7.9 mg/dL (8.5-10.5); Carbon Dioxide 29 mmol/L (22-29); Chloride 100 mmol/L (98-107); Glucose 127 mg/dL (65-115); Osmolality Calculated 309 mOsm/kg (285-295); Potassium 3.1 mmol/L (3.5-5.1); Sodium 141 mmol/L (136-145)
[2021-09-02] MEDS: cholecalciferol (vitamin D3) 1,000 unit Tablet 2000 UNIT PO (10:14)
[2021-09-02] MEDS: apixaban 5 mg Tablet PO ×2 (10:14→18:16)
[2021-09-02] MEDS: zinc gluconate 50 mg Tablet PO (10:15)
[2021-09-02] MEDS: pantoprazole DR 40 mg Tablet PO (10:15)
[2021-09-02] MEDS: PARoxetine 20 mg Tablet PO (10:15)
[2021-09-02] MEDS: ascorbic acid 500 mg Tablet 1000 MG PO ×2 (10:15→18:16)
[2021-09-02] MEDS: FUROsemide 40 mg Tablet PO ×2 (10:16→18:16)
[2021-09-02] MEDS: insulin lispro 100 unit/1 mL SUBCUT ×3 (10:17→18:21)
[2021-09-02 11:03] LABS: Glucose Point of Care 502 mg/dL (70-110)
--- NOTE | 2021-09-02 11:07 | P.PN_ITS ---
Subjective Subjective: Interval history: Seen this AM. On 60% FIo2 and 40 L flow. Glucose 501 at around 10 am . I ordered 10 units subcu lispro. Vitals/I&O/Wt Last Vital Signs Temp 98.0 F 09/02/21 07:37 Pulse 85 09/02/21 10:53 Resp 20 H 09/02/21 10:53 BP 113/53 09/02/21 07:37 Pulse Ox 94 09/02/21 10:53 09/01/21 09/02/21 09/02/21 22:59 06:59 14:59 Intake Total 1190 / 1240 830 / 2070 240 / 240 Output Total 350 / 350 2580 / 2930 Balance 840 / 890 -1750 / -860 240 / 240 Weight last 48 hrs Weight 106.776 kg Weight 107.048 kg Physical Exam Narrative: EXAM NARRATIVE: General: Alert oriented x3, patient seen sitting up in bed HEENT: Normocephalic, atraumatic, EOMI, breathing heated high flow 60% FiO2, 40 L flow. Cardio: Regular rate rhythm, normal S1-S2, no murmurs Respiratory: Slightly diminished bilateral air entry, coarse breath sounds at bases. No gross wheezes appreciated. No acute respiratory distress. No conversational dyspnea. Pulm exam improved compared to yesterday. GI: Abdomen soft, nontender,bowel sounds + Behavior: Appropriate and cooperative Extremities: No lower extremity edema. Urinary Catheter Management^: Ndiaye: Cath Placed During This Visit: yes, but has since been removed by the nurse Reason for Continuing Indwelling Catheter: Acute Urinary Retention or Obstruction Urinary Catheter Date of Insertion: 08/23/21 Urinary Catheter Time of Insertion: 22:11 Date Urinary Catheter Removed: 08/31/21 Time Urinary Catheter Discontinued: 10:35 Data : 09/02/21 05:38 09/02/21 05:38 A&P Assessment and plan (1) Acute hypoxemic respiratory failure: Status: Acute (2) COVID-19 virus infection: Status: Acute (3) Pneumonia due to 2019-nCoV: Status: Acute (4) Atrial fibrillation: Status: Acute Qualifiers: Atrial fibrillation type: other persistent Qualified Code(s): I48.19 - Other persistent atrial fibrillation (5) Congestive heart failure: Status: Acute Qualifiers: Heart failure type: combined systolic and diastolic Heart failure chronicity: chronic Qualified Code(s): I50.42 - Chronic combined systolic (congestive) and diastolic (congestive) heart failure (6) Chronic kidney disease: Status: Acute Qualifiers: Chronic kidney disease stage: stage 3 (moderate) Qualified Code(s): N18.3 - Chronic kidney disease, stage 3 (moderate) (7) Aortic regurgitation: Status: Acute Qualifiers: Cardiac valve disease etiology: nonrheumatic Qualified Code(s): I35.1 - Nonrheumatic aortic (valve) insufficiency Additional A&P Information #Acute hypoxic respiratory failure secondary to COVID-19 pneumonia #Hypotension,? Adrenal insufficiency? Morning cortisol low. Chronic hypotension as per the patient. #Acute kidney injury on CKD 3 #Anemia #Atrial fibrillation generally rate controlled #Chronic systolic congestive heart failure on Entresto at home, last EF 45%. #History of aortic regurgitation nonrheumatic Hospital course so far ?Patient presented with COVID-19 pneumonia. He has been on dexamethasone was, vitamins. Dexamethasone was switched to Solu-Medrol after morning cortisol was found to be low. He also received 1 dose of Tocilizumab. He also required pressors briefly in the ICU secondary to hypotension. He was able to be weaned off. Patient states his blood pressure is chronically low specifically in 70s systolic as he keeps a log at home. His atrial fibrillation is currently rate controlled. He does get slightly tachycardic after getting a breathing treatme nt. Troponin was also slightly elevated possibly secondary to demand ischemia. On70% FiO2 and 45 L flow. Patient is currently on Eliquis for his atrial fibrillation and DVT prophylaxis. Entresto is being held at this time. Today's plan 09/01/2021 -Continue Eliquis twice daily ?Patient's hypotension required Levophed shortly in the ICU and ceftriaxone was initiated for possible sepsis. Ceftriaxone was stopped after 5 days. However he had an increased white count with bandemia present. Linezolid Zosyn and Levaquin were added. After the addition white count has come down significantly and bandemia has resolved. I will continue antibiotics through IV for another day or 2 and then switch him to oral. Procalcitonin is low. CT chest and CT sinuses was also done with no acute bacterial infection evidence. ?Atrial fibrillation is currently rate controlled. Conitnue lopressor 12.5 BID -Continue lasix 40 PO BID -I will switch him to maintanance dose of steroid today for possible adrenal insufficiency. Will cut down dose of steroids. Hydrocortisone 20 in AM and 10 mg at noon until seen by endocrinology. Discussed with Dr. Collins to make her aware of patient. She will see him in clinic after discharge. -Continue patient on 60% FIo2 high flow nasal cannula and de-escalate as able. - WBC did go upto 20,000. Today WBC 13,000. Bandemia resolved. Empiric niecy ezolid plus zosyn were added, Will continue levaquin as well. Procal 0.05. Bacterial antigens negative so far. Sputum culture pending. MRSA nares negative. BCx NTD. -Continue PT DVT prophylaxis: On Eliquis Full code Does not qualify for LTAC yet due to high O2 requirements Attestations Medical Necessity Statement*: >48 hour stay Coding Level of Care Code Acute Certified Caregiver for [facility] Diagnoses Acute hypoxemic respiratory failure J96.01 COVID-19 virus infection U07.1 Pneumonia due to 2019-nCoV U07.1; J12.82 Atrial fibrillation I48.19 Atrial fibrillation type: other persistent Congestive heart failure I50.42 Heart failure type: combined systolic and diastolic Heart failure chronicity: chronic Chronic kidney disease N18.3 Chronic kidney disease stage: stage 3 (moderate) Aortic regurgitation I35.1 Cardiac valve disease etiology: nonrheumatic
[2021-09-02] MEDS: metoprolol tartrate 25 mg Tablet 12.5 MG PO ×2 (12:00→21:56)
[2021-09-02 12:08] LABS: Glucose Point of Care 234 mg/dL (70-110)
--- NOTE | 2021-09-02 15:40 | PC.SOCIAL ---
IMM update IMM updated with patient. Verbalized an understanding. Initialled, dated, timed, and placed in chart.
[2021-09-02 17:09] LABS: Glucose Point of Care 147 mg/dL (70-110)
[2021-09-02 21:08] LABS: Glucose Point of Care 162 mg/dL (70-110)
[2021-09-03] VITALS (13 sets, daily range): BP systolic 100–114; BP diastolic 56–74; PULSE 51–106; RESP 16–22; TEMP 36.5–36.9; O2SAT 89–100
[2021-09-03] MEDS: piperacillin-tazobactam 3.375 GM in sodium chloride 0.9% (plus) 50 ML IV ×3 (02:04→17:41)
[2021-09-03] MEDS: linezolid premix 600 MG/300 ML PREMIX 300 MG IV (03:31)
[2021-09-03] MEDS: ipratropium-albuterol 3 mL Neb INHALATION ×4 (03:45→20:00)
[2021-09-03] MEDS: levoFLOXacin 750 mg Tablet PO (06:02)
[2021-09-03 06:59] LABS: Basophils % 0.2 %; Eosinophils # 0.2 10^3/uL (0.0-0.8); Eosinophils % 1.8 %; Hematocrit 42.5 % (42.0-52.0); Hemoglobin 14.2 g/dL (11.7-16.6); Lymphocytes # 0.6 10^3/uL (0.8-4.8); Lymphocytes % 5.3 %; Mean Corpuscular HGB Conc 33.4 g/dL (30.0-36.0); Mean Corpuscular Hemoglobin 31.8 pg (28.0-34.0); Mean Corpuscular Volume 95.3 fl (80-94); Mean Platelet Volume 10.3 fL (7.4-10.4); Monocytes # 0.9 10^3/uL (0.2-0.9); Monocytes % 8.2 %; Nucleated Red Blood Cells % 0 %; Platelet Count 150 10^3/cmm (130-400); Red Blood Count 4.46 10^6/uL (4.1-5.3); Red Cell Distribution Width 12.7 % (12.1-15.1); White Blood Count 10.8 10^3/uL (4.0-10.0)
[2021-09-03 07:15] LABS: Blood Urea Nitrogen 52 mg/dL (8-23); Calcium 7.9 mg/dL (8.5-10.5); Carbon Dioxide 27 mmol/L (22-29); Chloride 98 mmol/L (98-107); Glucose 112 mg/dL (65-115); Magnesium 2.1 mg/dL (1.7-2.3); Osmolality Calculated 301 mOsm/kg (285-295); Sodium 138 mmol/L (136-145)
[2021-09-03 07:22] LABS: Anion Gap 16.2 (5-19); Potassium 3.2 mmol/L (3.5-5.1)
[2021-09-03 07:45] LABS: Glucose Point of Care 123 mg/dL (70-110)
[2021-09-03] MEDS: ascorbic acid 500 mg Tablet 1000 MG PO ×2 (09:22→17:41)
[2021-09-03] MEDS: PARoxetine 20 mg Tablet PO (09:22)
[2021-09-03] MEDS: pantoprazole DR 40 mg Tablet PO (09:22)
[2021-09-03] MEDS: zinc gluconate 50 mg Tablet PO (09:22)
[2021-09-03] MEDS: apixaban 5 mg Tablet PO ×2 (09:22→17:42)
[2021-09-03] MEDS: FUROsemide 40 mg Tablet PO ×2 (09:22→17:41)
[2021-09-03] MEDS: cholecalciferol (vitamin D3) 1,000 unit Tablet 2000 UNIT PO (09:22)
[2021-09-03 10:49] LABS: Glucose Point of Care 135 mg/dL (70-110)
[2021-09-03] MEDS: metoprolol tartrate 25 mg Tablet 12.5 MG PO (10:56)
[2021-09-03] MEDS: hydrocortisone 10 mg Tablet 20 MG PO (10:57)
[2021-09-03] MEDS: hydrocortisone 10 mg Tablet PO (10:57)
--- NOTE | 2021-09-03 13:09 | P.TS_ITS ---
Transfer Summary Providers Date of Admission: 08/22/21 23:23 Date of Discharge: 09/03/21 Attending Provider at Admission: Caroline Diaz Attending Provider at Transfer: Tiny Fuentes MD Primary Care Provider: Pedro Wang MD Anticipated Date of Transfer: Anticipated date of transfer: 09/03/21 Receiving Facility & Provider: Receiving Provider: [Dr. Conley] Receiving facility: [Formerly [facility], [facility]] Diagnoses at Discharge Discharge Diagnosis (1) Acute hypoxemic respiratory failure: Status: Acute (2) COVID-19 virus infection: Status: Acute (3) Pneumonia due to 2019-nCoV: Status: Acute (4) Atrial fibrillation: Status: Acute Qualifiers: Atrial fibrillation type: other persistent Qualified Code(s): I48.19 - Other persistent atrial fibrillation (5) Congestive heart failure: Status: Acute Qualifiers: Heart failure type: combined systolic and diastolic Heart failure chronicity: chronic Qualified Code(s): I50.42 - Chronic combined systolic (congestive) and diastolic (congestive) heart failure (6) Chronic kidney disease: Status: Acute Qualifiers: Chronic kidney disease stage: stage 3 (moderate) Qualified Code(s): N18.3 - Chronic kidney disease, stage 3 (moderate) (7) Aortic regurgitation: Status: Acute Qualifiers: Cardiac valve disease etiology: nonrheumatic Qualified Code(s): I35.1 - Nonrheumatic aortic (valve) insufficiency Reason for Visit Reason for Visit: Sinus Infection\Pain\Breathing Rapid to Shallow Hospital Course Hospital Course HPI as per Dr. Diaz 81-year-old male with a past medical history significant for chronic stage 3 kidney disease, congestive heart failure with last known EF of 45% in 05/2020, valvular heart disease with prior moderate aortic regurgitation, proxsysmal atrial fibrillation on eliquis/entresto who presented to ER with shortness of breath. Progressively worsening for the past month. He was seen on 08/18 for similar complaint in addition to suspected sinusitis which was treated with antibiotics. No reported fever, chills, nausea or vomiting. No chest pain. Upon arrival to ER Laboratory workup showed a WBC of 14.2, hemoglobin 12.8, hematocrit 30.4 and platelet count of 144. D-dimer was elevated at 0.69. Arterial blood gases showed pH of 7.54, pCO2 25.7, PO2 51.4 and bicarb of 22.Sodium 138, potassium 4.5, chloride 102 V car 21, BUN 54 and creatinine of 2.0. Prior creatinine was noted to be 1.6 on 08/18. Troponin T baseline 72 with repeat of 70 at 2hr. ProBNP of 1574. CRP of 166. Procalcitonin negative. COVID- 19 PCR was prositive. Chest x-ray did not show any evidence of acute abnormality. Patient was noted to be in respiratory distress and hypoxic with o2 sat in 80s on arrival. He was started on HFNC 60L with 100 Fio2. Course: Patient presented with COVID-19 pneumonia. He has been on dexamethasone was, vitamins. Dexamethasone was switched to Solu-Medrol after morning cortisol was found to be low. He also received 1 dose of Tocilizumab. He also required pressors briefly in the ICU secondary to hypotension. He was able to be weaned off. Patient states his blood pressure is chronically low specifically in 70s systolic as he keeps a log at home. His atrial fibrillation is currently rate controlled. He does get slightly tachycardic after getting a breathing treatment. Troponin was also slightly elevated possibly secondary to demand ischemia. On70% FiO2 and 45 L flow mostly but now has come down to 13 L nasal cannula. Patient is currently on Eliquis for his atrial fibrillation and DVT prophylaxis. Entresto is being held at this time. Patient's echo was also repeated during hospital stay. Echo findings were discussed with Dr. Olsen who said to just have patient follow-up outpatient. Echo showed EF 55% which is improved. Will hold Entresto until patient sees cardiology after discharge. Patient also possibly has adrenal insufficiency and was given IV steroids during hospital stay. He has now been deescalated to hydrocortisone 20 mg in the morning and 10 mg at noon. He will stay on this dose until he is seen by endocrinology. Dr. Collins floor specialist is aware of the patient and will see him in his clinic after patient has recovered from Covid. He did have white count going up to 20,000 and had some bandemia. He received empiric coverage with linezolid Zosyn and Levaquin. Procalcitonin was negative. CT chest was done which also showed same COVID-19 pneumonia [address] findings[address] CT sinuses was also done which did not show any acute bacterial infection. Now his white count is 10,000 and this mild elevation can be possibly due to him being on steroids. There is no any evidence of infection at this time. I will stop IV antibiotics today. Patient is now on 13 L nasal cannula will be sent to LTAC for further management of oxygen use. Once he gets discharged from there he should get a follow-up with cardiology Dr. Olsen, Dr. Collins endocrinology. He is on Eliquis for his atrial fibrillation which is rate controlled. Patient will remain on Lasix 40 twice daily which is his home dose of Lasix. Physical Exam Narrative: EXAM NARRATIVE: General: Alert oriented x3, patient seen sitting up in bed HEENT: Normocephalic, atraumatic, EOMI, breathing 13 L nasal cannula. Cardio: Regular rate rhythm, normal S1-S2, no murmurs Respiratory: Slightly diminished bilateral air entry, coarse breath sounds at bases. No gross wheezes appreciated. No acute respiratory distress. No conversational dyspnea. Pulm exam improved compared to yesterday. GI: Abdomen soft, nontender,bowel sounds + Behavior: Appropriate and cooperative Extremities: No lower extremity edema. Urinary Catheter Management^: Ndiaye: Cath Placed During This Visit: yes, but has since been removed by the nurse Reason for Continuing Indwelling Catheter: Acute Urinary Retention or Obstruction Urinary Catheter Date of Insertion: 08/23/21 Urinary Catheter Time of Insertion: 22:11 Date Urinary Catheter Removed: 08/31/21 Time Urinary Catheter Discontinued: 10:35 TS Data Data Completed and Pending: Completed Studies During Hospitalization Category Date Time Status CT chest wo con 7 1250 Stat Cat Scan 08/31/21 08:[address] sinus wo con* [id number] Routine Cat Scan 08/31/21 14:00 Completed XR chest 1V roxanne ble [id number] Routine Exams 08/25/21 06:01 Completed XR chest 1V roxanne ble [id number] Routine Exams 08/27/21 07:00 Completed XR chest 1V roxanne ble [id number] Urgent Exams 08/29/21 07:58 Completed XR chest 1V roxanne ble [id number] Urgent Exams 08/22/21 20:14 Completed CV. echo complete * [id number] Urgent Ultrasound 08/27/21 11:29 Completed Pending at discharge Category Date Time Status Blood Culture Sta t Lab 08/29/21 16:10 Results Sputum Culture an d Gram Stain Stat Lab 08/29/21 07:56 Uncollected Sputum Culture an d Gram Stain Stat Lab 09/01/21 21:40 Results Labs from last 24 hours 09/03/21 09/03/21 09/03/21 10:44 06:34 06:34 WBC 10.8 H RBC 4.46 Hgb 14.2 Hct 42.5 MCV 95.3 H MCH 31.8 MCHC 33.4 RDW 12.7 Plt Count 150 MPV 10.3 Neut % (Auto) 82.0 Lymph % (Auto) 5.3 Levy % (Auto) 8.2 Eos % (Auto) 1.8 Baso % (Auto) 0.2 Neut # (Auto) 8.90 H Lymph # (Auto) 0.6 L Levy # (Auto) 0.9 Eos # (Auto) 0.2 Baso # (Auto) 0.0 Nucleated RBC % (a uto) 0 Nucleated RBCs # 0.0 Sodium 138 Potassium 3.2 L Chloride 98 Carbon Dioxide 27 Anion Gap 16.2 BUN 52 H Creatinine 1.5 H GFR Calculation Not Reportable Glucose 112 POC Glucose 135 H Calculated Osmolal ity 301 H Calcium 7.9 L Magnesium 2.1 09/03/21 09/02/21 09/02/21 06:30 20:56 16:51 WBC RBC Hgb Hct MCV MCH MCHC RDW Plt Count MPV Neut % (Auto) Lymph % (Auto) Levy % (Auto) Eos % (Auto) Baso % (Auto) Neut # (Auto) Lymph # (Auto) Levy # (Auto) Eos # (Auto) Baso # (Auto) Nucleated RBC % (a uto) Nucleated RBCs # Sodium Potassium Chloride Carbon Dioxide Anion Gap BUN Creatinine GFR Calculation Glucose POC Glucose 123 H 162 H 147 H Calculated Osmolal ity Calcium Magnesium Vitals: Last Vital Signs Temp 98.4 F 09/03/21 11:52 Pulse 69 09/03/21 11:52 Resp 16 09/03/21 11:52 BP 108/74 09/03/21 11:52 Pulse Ox 97 09/03/21 11:52 TS Medications Medications Home Medications montelukast 10 mg tablet 10 mg PO DAILY 10/14/19 [History Confirmed 08/23/21] vitamins A,C,N-mbxy-hcbdko 14,320 unit-226 mg-200 unit capsule 1 cap PO DAILY cap 10/14/19 [History Confirmed 08/23/21] paroxetine HCl 20 mg tablet 20 mg PO DAILY tab 03/24/21 [History Confirmed 08/23/21] sacubitril 24 mg-valsartan 26 mg tablet 2 tab PO BID #360 tab 06/04/21 [Rx Confirmed 08/23/21] apixaban 5 mg tablet 5 mg PO BID #180 tab 06/07/21 [Rx Confirmed 08/23/21] furosemide 40 mg tablet 40 mg PO BID #180 tab 06/07/21 [Rx Confirmed 08/23/21] metoprolol tartrate 25 mg tablet 12.5 mg PO BID #90 tab 06/07/21 [Rx Confirmed 08/23/21] potassium chloride 10 mEq tablet,extended release 10 meq PO DAILY #90 tab 06/07/21 [Rx Confirmed 08/23/21] rosuvastatin 10 mg tablet 10 mg PO DAILY #30 tab 06/07/21 [Rx Confirmed ] spironolactone 25 mg tablet See Rx Instructions .ROUTE .COMPLEX #90 tab 07/19/21 [Rx Confirmed 08/23/21] promethazine-DM 5 - 10 ml PO Q6H PRN 08/23/21 [History Confirmed 08/23/21] Active Medications Acetaminophen (Acetaminophen 325 Mg Tablet) 650 mg PO Q6H PRN PRN Reason: Mild/Mod Pain Or Temp >/= 101 Albuterol/Ipratropium (Ipratropium-Albuterol 3 Ml Neb) 3 ml INHALATION Q6H.RESPIRATORY REPLACED BY [facility] Last Admin: 09/03/21 09:12 Dose: 3 ml Documented by: Apixaban (Apixaban 5 Mg Tablet) 5 mg PO BID REPLACED BY [facility] Last Admin: 09/03/21 09:22 Dose: 5 mg Documented by: Ascorbic Acid (Ascorbic Acid 500 Mg Tablet) 1,000 mg PO BID REPLACED BY [facility] Last Admin: 09/03/21 09:22 Dose: 1,000 mg Documented by: Dextrose (Dextrose 50% Syringe 50 Ml) 25 ml IVP ONCE PRN; Protocol PRN Reason: hypoglycemia protocol Dextrose (Dextrose 50% Syringe 50 Ml) 50 ml IVP PRN PRN; Protocol PRN Reason: hypoglycemia protocol Furosemide (Furosemide 40 Mg Tablet) 40 mg PO BID REPLACED BY [facility] Last Admin: 09/03/21 09:22 Dose: 40 mg Documented by: Glucagon (Glucagon 1 Mg/Ml Inj 1 Ml) 1 mg IM ONCE PRN; Protocol PRN Reason: Adult Acute Hypoglycemia Prot. Hydrocortisone (Hydrocortisone 10 Mg Tablet) 20 mg PO DAILY REPLACED BY [facility] Last Admin: 09/03/21 10:57 Dose: 20 mg Documented by: Hydrocortisone (Hydrocortisone 10 Mg Tablet) 10 mg PO DAILY REPLACED BY [facility] Last Admin: 09/03/21 10:57 Dose: 10 mg Documented by: Dextrose (D5w) 500 mls @ 100 mls/hr IV ONCE PRN; Protocol PRN Reason: Adult Acute Hypoglycemia Prot Piperacillin Sod/Tazobactam (Sod 3.375 gm/ Sodium Chloride) 50 mls @ 12.5 mls/hr IV Q8H REPLACED BY [facility]; Protocol Last Admin: 09/03/21 09:23 Dose: 12.5 mls/hr?stop today Documented by: Linezolid (Zyvox Premix) 600 mg in 300 mls @ 300 mls/hr IV Q12H REPLACED BY [facility]; Protocol Last Infusion: 09/03/21 05:41 Dose: Infused?stop today Documented by: Insulin Human Lispro (Insulin Lispro 100 Unit/1 Ml) 0 unit SUBCUT TIDWM REPLACED BY [facility]; Protocol Last Admin: 09/03/21 11:40 Dose: Not Given Documented by: Levofloxacin (Levofloxacin 750 Mg Tablet) 750 mg PO DAILY@0600 REPLACED BY [facility]; Protocol Last Admin: 09/03/21 06:02 Dose: 750 mg?stopped today Documented by: Metoprolol Tartrate (Metoprolol Tartrate 25 Mg Tablet) 12.5 mg PO BID@0900,2100 REPLACED BY [facility] Last Admin: 09/03/21 10:56 Dose: 12.5 mg Documented by: Ondansetron HCl (Ondansetron 2 Mg/Ml Sdv 2 Ml) 4 mg IVP Q8H PRN PRN Reason: vomiting, or N/V if npo Pantoprazole Sodium (Pantoprazole Dr 40 Mg Tablet) 40 mg PO DAILY REPLACED BY [facility] Last Admin: 09/03/21 09:22 Dose: 40 mg Documented by: Paroxetine HCl (Paroxetine 20 Mg Tablet) 20 mg PO DAILY REPLACED BY [facility] Last Admin: 09/03/21 09:22 Dose: 20 mg Documented by: Vitamin D (Cholecalciferol (Vitamin D3) 1,000 Unit Tablet) 2,000 unit PO DAILY REPLACED BY [facility] Last Admin: 09/03/21 09:22 Dose: 2,000 unit Documented by: Zinc Gluconate (Zinc Gluconate 50 Mg Tablet) 50 mg PO DAILY ELIO Last Admin: 09/03/21 09:22 Dose: 50 mg Documented by: Discharge Plan Discharge Patient Disposition: Xfer [facility] Condition: Stable Prescriptions: No Action montelukast [Singulair] 10 mg tablet 10 mg PO DAILY RF: 0 PreserVision AREDS 14,320-226-200 ysqd-sq-ovsa capsule 1 cap PO DAILY RF: 0 paroxetine HCl [Paxil] 20 mg tablet 20 mg PO DAILY RF: 0 Entresto 24-26 mg tablet 2 tab PO BID Qty: 360 RF: 3 Eliquis 5 mg tablet 5 mg PO BID Qty: 180 RF: 3 furosemide 40 mg tablet 40 mg PO BID Qty: 180 RF: 3 metoprolol tartrate 25 mg tablet 12.5 mg PO BID Qty: 90 RF: 3 potassium chloride 10 mEq tablet extended release 10 meq PO DAILY Qty: 90 RF: 3 rosuvastatin [Crestor] 10 mg tablet 10 mg PO DAILY Qty: 30 RF: 5 spironolactone 25 mg tablet See Rx Instructions .ROUTE .COMPLEX Qty: 90 RF: 2 promethazine-DM 6.25-15 mg/5 mL Syrup 5 - 10 ml PO Q6H PRN (Reason: Cough) RF: 0 Referrals: Pedro Wang MD [Primary Care Provider] - Transfer Attestations Time Spent in Transfer Care*: greater than 30 min Specific Discharge Activities: Specific discharge activities: educating patient, educating and/or supporting family/caregiver, discussing with transplant case manager/social workers/dc planners and evaluating patient/reviewing data Quality Metrics Clinical Quality Measures: During this hospital stay, did patient experience: None Coding Level of Care Code Acute Mail Weigher for [facility] Fwd Diagnoses Acute hypoxemic respiratory failure J96.01 COVID-19 virus infection U07.1 Pneumonia due to 2019-nCoV U07.1; J12.82 Atrial fibrillation I48.19 Atrial fibrillation type: other persistent Congestive heart failure I50.42 Heart failure type: combined systolic and diastolic Heart failure chronicity: chronic Chronic kidney disease N18.3 Chronic kidney disease stage: stage 3 (moderate) Aortic regurgitation I35.1 Cardiac valve disease etiology: nonrheumatic
--- NOTE | 2021-09-03 13:30 | PC.OT ---
OT tx held at this time as pt preparing to transfer to [facility] for continued rehab/care.
[2021-09-03 17:00] LABS: Glucose Point of Care 164 mg/dL (70-110)
[2021-09-03] MEDS: acetaminophen 325 mg Tablet 650 MG PO (17:04)
[2021-09-03] MEDS: phenazopyridine 100 mg Tablet PO (17:41)
[2021-09-03] MEDS: insulin lispro 100 unit/1 mL SUBCUT (17:45)
[2021-09-03 21:24] LABS: Glucose Point of Care 206 mg/dL (70-110)
--- NOTE | 2021-09-03 23:23 | PC.NURSE ---
Patient was offered his lopressor and he stated that he did not want to take the medication because his blood pressure was 114/60. Patient was educated on medication and he stated he still did not want it. Medication wasted in the biohazard.
[2021-09-04] VITALS: BP 97/61; PULSE 86; RESP 18; TEMP 36.6; O2SAT 92
[2021-09-04] MEDS: piperacillin-tazobactam 3.375 GM in sodium chloride 0.9% (plus) 50 ML IV (01:58)
--- NOTE | 2021-09-04 02:05 | PC.NURSE ---
Patient called nurse into room and was in an intense amount of pain. He was sitting on the commode and stated that he felt swollen in his lower abdomen and was in so much pain, he could not stand it. Patient stated to nurse that he has not urinated since 1400 today and nurse noted that he does take 40 lasix daily and also has CKD stage 3. This RN bladder scanned patient and found there to be >500ml reading on bladder scanner. Dr. Porras was notified via voalte message and asked if we could straight cath the patient. She gave order to straight cath/place indwelling if needed. Patient was immediately straight cathed with a 16FR moss and 700ml was drained immediately with another 300ml to follow. Patient felt instant relief and so an indwelling was placed due to amount of retention. Stat lock applied and patient instructed that he may continue to have bladder spasms from the stretching of his bladder due to fullness and not emptying. He verbalized understanding.
[2021-09-04 02:33] VITALS: PULSE 98; RESP 18; O2SAT 93
[2021-09-04] MEDS: ipratropium-albuterol 3 mL Neb INHALATION (02:33)
[2021-09-04 03:36] VITALS: BP 93/50; PULSE 70; RESP 18; TEMP 36.4; O2SAT 92
--- NOTE | 2021-09-04 03:37 | PC.NURSE ---
i reported low temp 97.5 to nurse
[2021-09-04 06:06] LABS: Basophils % 0.2 %; Eosinophils # 0.1 10^3/uL (0.0-0.8); Eosinophils % 0.6 %; Hemoglobin 12.7 g/dL (11.7-16.6); Lymphocytes # 0.7 10^3/uL (0.8-4.8); Lymphocytes % 6.1 %; Mean Corpuscular HGB Conc 33.4 g/dL (30.0-36.0); Mean Corpuscular Hemoglobin 31.4 pg (28.0-34.0); Mean Corpuscular Volume 94.1 fl (80-94); Mean Platelet Volume 10.6 fL (7.4-10.4); Monocytes % 9.5 %; Neutrophils # 9.05 10^3/uL (1.8-7.7); Neutrophils % 82.3 %; Nucleated Red Blood Cells % 0 %; Platelet Count 146 10^3/cmm (130-400); Red Blood Count 4.04 10^6/uL (4.1-5.3); Red Cell Distribution Width 12.7 % (12.1-15.1)
[2021-09-04 06:25] LABS: Blood Urea Nitrogen 63 mg/dL (8-23); Calcium 7.9 mg/dL (8.5-10.5); Carbon Dioxide 29 mmol/L (22-29); Chloride 100 mmol/L (98-107); Glucose 113 mg/dL (65-115); Osmolality Calculated 313 mOsm/kg (285-295); Sodium 142 mmol/L (136-145)
[2021-09-04 06:26] LABS: Creatinine Clr Calc Pharmacy 43.4659
[2021-09-04] MEDS: levoFLOXacin 750 mg Tablet PO (06:35)
[2021-09-04 07:44] LABS: Glucose Point of Care 113 mg/dL (70-110)
[2021-09-04] MEDS: cholecalciferol (vitamin D3) 1,000 unit Tablet 2000 UNIT PO (07:47)
[2021-09-04] MEDS: ascorbic acid 500 mg Tablet 1000 MG PO (07:47)
[2021-09-04] MEDS: hydrocortisone 10 mg Tablet PO (07:47)
[2021-09-04] MEDS: PARoxetine 20 mg Tablet PO (07:47)
[2021-09-04] MEDS: hydrocortisone 10 mg Tablet 20 MG PO (07:47)
[2021-09-04] MEDS: zinc gluconate 50 mg Tablet PO (07:47)
[2021-09-04] MEDS: metoprolol tartrate 25 mg Tablet 12.5 MG PO (07:48)
[2021-09-04] MEDS: apixaban 5 mg Tablet PO (07:48)
[2021-09-04] MEDS: FUROsemide 40 mg Tablet PO (07:48)
[2021-09-04] MEDS: pantoprazole DR 40 mg Tablet PO (07:49)
[2021-09-04 08:00] VITALS: BP 91/49; PULSE 86; RESP 16; TEMP 36.6; O2SAT 93
--- NOTE | 2021-09-04 08:49 | PC.NURSE ---
Jon Booth picked up patient to transfer him to [facility] in [place].
--- NOTE | 2021-09-04 14:37 | PC.NURSE ---
THIS NURSE CONTACTED [facility] TO PASS ALONG THAT PATIENT'S SPUTUM CULTURES WERE POSITIVE AND PER DR. KRISH TRACY AND JUDY UNTIL August. THIS WAS FAXED TO [facility] IN [facility].
== END 2021-09-04 08:30 | DRG 177 ==
LOC: ER 23:24 → MEDSURG 23:38 → ICU 08-23 21:33 → CSU 08-25 15:59 → MEDSURG 08-28 15:57
PROVIDERS: Internal Medicine; Admitting Provider Hospitalist; Emergency Provider Emergency Medicine; PCP Family Medicine; Visit Provider Internal Medicine
DX: U07.1 COVID-19 (principal); J12.82 Pneumonia due to coronavirus disease 2019; J96.01 Acute respiratory failure with hypoxia; I50.22 Chronic systolic (congestive) heart failure; I42.9 Cardiomyopathy, unspecified; N17.9 Acute kidney failure, unspecified; E27.40 Unspecified adrenocortical insufficiency; I24.8 Other forms of acute ischemic heart disease; I35.1 Nonrheumatic aortic (valve) insufficiency; N18.30 Chronic kidney disease, stage 3 unspecified; I48.0 Paroxysmal atrial fibrillation; F41.8 Other specified anxiety disorders; E78.5 Hyperlipidemia, unspecified; I95.9 Hypotension, unspecified; E16.1 Other hypoglycemia; T38.0X5A Adverse effect of glucocorticoids and synthetic analogues, initial encounter; D63.1 Anemia in chronic kidney disease; Z79.01 Long term (current) use of anticoagulants
CPT/HCPCS: 36415; 36416; 36600; 51702; 70486; 71045; 71250; 80048; 80051; 80053; 80069; 82330; 82533; 82805; 82962; 83605; 83735; 83880; 84145; 84484; 85007; 85025; 85378; 86140; 86403; 87040; 87070; 87077; 87086; 87106; 87186; 87205; 87449; 87635; 87641; 93005; 93306; 94640; 96365; 96372; 97110; 97116; 97162; 97165; 97530; 97535; 99285; J0696; J1100; J1815; J1940; J2020; J2543; J2920; J3262; J3370; J7030; J8499

== ENCOUNTER 2022-01-31 11:20 | Outpatient (CLI) | payer MEDICARE, OTHER, SELFPAY ==
--- NOTE | 2022-01-31 | XR_ITS ---
WS: [id number] HAND LEFT TECHNIQUE: 3 views of the left hand CLINICAL INFORMATION: FALL COMPARISON: None. FINDINGS: Narrowing of the radiocarpal joint. Ulna minus variance. Scaphoid and lunate appear normal. 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 Metacarpals appear normal. Narrowing of the IP joints. No visualized f ractures. 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 XR/XR hand LT min 3V* [id number] IMPRESSION: No acute fractures.
--- NOTE | 2022-01-31 | XR_ITS ---
WS: [id number] NASAL BONES TECHNIQUE: 2 views of the nasal bones CLINICAL INFORMATION: FALL COMPARISON: None. FINDINGS: Slight irregularity and depression along the nasal bone suspicious for small minimally displaced nasa l bone fracture. This can be further evaluated with CT persistent concern. Mastoid air cells well aer ated. XR/XR nasal bones min 3V [id number] IMPRESSION: Slight irregularity and depression along the nasal bone suspicious for small mi nimally displaced nasal bone fracture.
== END 2022-01-31 11:21 | disposition home or self-care (01) ==
LOC: RADOUTREAD 02-01 11:20
PROVIDERS: PCP Family Medicine; Visit Provider Nurse Practitioner Family
DX: S09.92XA Unspecified injury of nose, initial encounter (principal); S69.92XA Unspecified injury of left wrist, hand and finger(s), initial encounter; W19.XXXA Unspecified fall, initial encounter; M18.9 Osteoarthritis of first carpometacarpal joint, unspecified; M19.042 Primary osteoarthritis, left hand
CPT/HCPCS: 70160; 73130

== ENCOUNTER 2022-02-07 10:10 | Observation (INO) | payer MEDICARE, OTHER, SELFPAY ==
[2022-02-07] VITALS (14 sets, daily range): BP systolic 83–109; BP diastolic 43–68; PULSE 75–107; RESP 14–32; TEMP 36.3–36.8; O2SAT 92–97; BMI 27.5; BMI 29.0
--- NOTE | 2022-02-07 10:38 | XRR_ITS ---
PROCEDURE INFORMATION: Exam: XR Chest Exam date and time: 02/07/2022 10:50 AM Age: 81 years old Clinical indication: Cough and dyspnea; Additional info: Dyspnea/cough TECHNIQUE: Imaging protocol: XR of the chest. Views: 1 view. Total images: 2 COMPARISON: CT chest wo con [id number] 08/31/2021 9:07 AM FINDINGS: Lungs: Coarse chronic pulmonary markings. Pleural spaces: Unremarkable. No pleural effusion. No pneumothorax. Heart/Mediastinum: Heart is enlarged but stable when compared to the prior exam. Diaphragm: There is nonspecific elevation of the right hemidiaphragm. Bones/joints: Osseous structures are unchanged from the prior exam. XR/XR chest 1V portable [id number] IMPRESSION: 1. Heart is enlarged but stable when compared to the prior exam. 2. Coarse chronic pulmonary markings. 3. No acute cardiopulmonary process.
[2022-02-07] MEDS: esmolol drip 2,500 MG/250 ML PREMIX 32.39 MG IV (10:59)
[2022-02-07 11:07] LABS: Basophils % 0.3 %; Eosinophils % 0.2 %; Hematocrit 38.1 % (42.0-52.0); Lymphocytes # 1.3 10^3/uL (0.8-4.8); Lymphocytes % 10.3 %; Mean Corpuscular HGB Conc 34.1 g/dL (30.0-36.0); Mean Corpuscular Hemoglobin 30.4 pg (28.0-34.0); Mean Corpuscular Volume 89.2 fl (80-94); Mean Platelet Volume 10.7 fL (7.4-10.4); Monocytes # 1.6 10^3/uL (0.2-0.9); Neutrophils # 9.31 10^3/uL (1.8-7.7); Neutrophils % 75.9 %; Nucleated Red Blood Cells % 0 %; Platelet Count 174 10^3/cmm (130-400); Red Blood Count 4.27 10^6/uL (4.1-5.3); Red Cell Distribution Width 13.9 % (12.1-15.1); White Blood Count 12.3 10^3/uL (4.0-10.0)
--- NOTE | 2022-02-07 11:27 | ECG_ITS ---
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 Measurements Intervals Rudyard Rate: 92 P: MA: QRS: -17 QRSD: 133 T: 13 QT: 372 QTc: 460 Interpretive Statements ATRIAL FIBRILLATION WITH ABERRANT CONDUCTION OR VENTRICULAR PREMATURE COMPLEXES INTRAVENTRICULAR CONDUCTION DELAY [130+ ms QRS DURATION] POSSIBLE ANTERIOR MYOCARDIAL INFARCTION , OF INDETERMINATE AGE [30 ms Q WAVE IN V3/V4, OR R < 0.2 mV IN V4] Compared to ECG 08/23/2021 03:18:01 Ventricular premature complex(es) now present Aberrant conduction of supraventricular beat(s) now present Myocardial infarct finding now present T-wave abnormality no longer present Electronically Signed On 02-07-2022 19:41:14 CDT by Chris Olsen M.D. [id number]
--- NOTE | 2022-02-07 11:27 | PC.NURSE ---
Pt's blood pressure dropped to 61/42 after Esmolol gtt started. Now paused, both heart rate and BP have improved. Pt is asymptomatic.
--- NOTE | 2022-02-07 11:28 | CT_ITS ---
WS: [id number] CT HEAD NONCONTRAST HISTORY: fall - on anticoagulants TECHNIQUE: Contiguous axial imaging performed through the brain in 2.5 mm imaging. Bone and soft tiss ue windows. Sagittal and coronal reformats reviewed. All CT scans at [facility] use at least one of these dose optimization techniques: automated exposure control; mA and/or kV adjustment per pa tient size (includes targeted exams where dose is matched to clinical indication); or iterative recon struction. DLP: 990.96 mGy.cm COMPARISON: 08/18/2021 No acute intracranial hemorrhage, midline shift or mass effect. Mild atrophy with moderate small vessel ischemic changes throughout the white matter. No large territ ory infarct. Mild bilateral cerebellar atrophy. Ventricles: Normal size with no hydrocephalus. No inferior displacement of cerebellar tonsils. There is extensive calcification within the intracran ial carotid arteries along with ectasia and tortuosity. Paranasal sinuses: As visualized are clear. Mastoid air cells: Well pneumatized. Calvarium and scalp: Skull is intact with no soft tissue edema or swelling. Abnormal configuration of the nasal bones since 08/18/2021 consistent with bilateral minimally displa rajinder nasal bone fractures. Fractures described on radiograph of 01/31/2022. CT/CT head wo con* [id number] IMPRESSION: 1. No acute intracranial hemorrhage or edema. 2. Mild cerebral atrophy with moderate small vessel ischemic changes. 3. Minimally displaced bilateral nasal bone fractures. As described on radiograph.
[2022-02-07 11:29] LABS: Alanine Aminotransferase 13 U/L (0-41); Albumin Level 3.7 g/dL (3.5-5.2); Alkaline Phosphatase 60 IU/L (40-130); Anion Gap 16.4 (5-19); Aspartate Amino Transferase 20 U/L (0-40); Blood Urea Nitrogen 59 mg/dL (8-23); Calcium 8.6 mg/dL (8.5-10.5); Carbon Dioxide 22 mmol/L (22-29); Chloride 104 mmol/L (98-107); Globulin 2.5 g/dL (1.3-4.6); Glucose 118 mg/dL (65-115); NT Pro B Type Natriuretic Pept 3307 pg/mL (0-450); Osmolality Calculated 304 mOsm/kg (285-295); Potassium 4.4 mmol/L (3.5-5.1); Sodium 138 mmol/L (136-145); Total Bilirubin 0.7 mg/dL (0.15-1.2); Total Protein 6.2 g/dL (6.6-8.7)
--- NOTE | 2022-02-07 11:50 | W.ED.WEAKNES ---
HPI - Weakness General: Chief complaint: Weakness Stated complaint: Says his balance is off, tired did fall Time Seen by Provider: 02/07/22 10:23 Source: patient Mode of arrival: ambulatory Limitations: no limitations History of Present Illness: 81-year-old male presents emergency room complaining of weakness generalized fatigue. He has had several episodes recently waxing and waning he relates it to his rapid heart rate. He is a known history of atrial fibrillation and is anticoagulated. Today he began to have weakness and nearly passed out he usually is able to rest for a bit and these episodes will pass resolve and he will be able to return to his usual activities today it did not do so. He reports he had an episode a week ago where he passed out as well but then his symptoms resolved and he felt better so he did not seek out care. He denies any chest pain or significant shortness of breath or orthopnea this time. MD Complaint: generalized weakness Onset (ago): day(s) Duration: constant Location: generalized Relieving factors: rest Exacerbating factors: exertion Associated symptoms: Denies chest pain, chills, confusion, melena, decreased appetite, diaphoresis, dysuria, easy bruising, fever(s), headache(s), myalgias, nausea, rash, short of breath, syncope or vomiting Review of Systems Const: Reports: fatigue and malaise; Denies: fever(s), chills or diaphoresis ENMT: Denies: throat pain, ear or mastoid pain, nasal discharge or nasal congestion Card: Reports: palpitations and irregular heart rhythm; Denies: chest pain, edema, swelling of feet/ankles or syncope Resp: Denies: dyspnea, productive cough or non-productive cough GI: Denies: nausea, vomiting or melena : Denies: dysuria Skin/Breast: Denies: rash or pruritus Neuro: Denies: headache(s) or confusion Sujit/Lymph: Denies: easy bruising PFSH ED PFSH: Medical History Aortic regurgitation Atrial fibrillation Cardiomyopathy Chronic kidney disease Congestive heart failure Depression Gout Hyperlipidemia Surgical History H/O hernia repair History of retinal detachment History of tonsillectomy Family History Father CAD (coronary artery disease) AAA (abdominal aortic aneurysm) Brother Cancer Lung disease Other Hypertension Denies family history of Diabetes Clotting disorder Dementia Chronic kidney disease (CKD) Suicide Anesthesia complication Bleeding disorder Stroke Social History Smoking and tobacco status: never smoked Alcohol intake: never Physical Exam Const: COMMON NORMALS: no acute distress GENERAL APPEARANCE: cooperative and comfortable ORIENTATION/CONSCIOUSNESS: Yes awake, Yes oriented to person, Yes oriented to place and Yes oriented to time HENMT: COMMON NORMALS: normocephalic, atraumatic and hearing grossly normal bilaterally HEAD & SCALP: normocephalic and atraumatic Resp: COMMON NORMALS: normal respiratory effort, No retractions, No use of accessory muscles and clear to auscultation bilaterally AUSCULTATION: clear to auscultation bilaterally Cardio: RATE: tachycardic RHYTHM: abnormal rhythm GI: COMMON NORMALS: Soft to palpation and No hepatosplenomegaly present AUSCULTATION: Yes normoactive bowel sounds PALPATION: Yes Soft to palpation, No Tenderness to palpation present (GI), No Guarding due to palpation present (GI) and Yes No hepatosplenomegaly present Extremity: COMMON NORMALS: normal to inspection, capillary refill normal, no clubbing, cyanosis or edema, no calf tenderness and no pedal edema Neuro: SENSORIUM/ORIENTATION: Yes oriented to person, Yes oriented to place and Yes oriented to time Skin: COMMON NORMALS: no rashes or lesions noted GENERAL SKIN EXAM: no rashes or lesions noted Course Vital Signs: Vital signs: Vital Signs Temperature 98.8 F 02/08/22 12:00 Pulse Rate 56 L 02/08/22 12:00 Respiratory Rate 16 02/08/22 12:00 Blood Pressure 94/57 02/08/22 12:00 Pulse Oximetry 95 02/08/22 12:00 MDM - Weakness Medical Decision Making Initially patient arrived he was in A. fib with RVR and rate in 140s and 150s, he was started on esmolol drip. Shortly after that his rate improved and we are able to titrate him off and is maintaining normal rate. He has a history of ischemic cardiomyopathy as well as chronic kidney disease. He has had episodes of syncope now suspect related to his A. fib. Patient will be admitted discussed Dr. Hollis orders written Medical Records I reviewed the patient's medical records. Lab Data I reviewed the patient's lab results. : 02/08/22 02:58 02/08/22 02:58 Radiology Impressions Chest X-Ray 02/07/22 10:38 IMPRESSION: 1. Heart is enlarged but stable when compared to the prior exam. 2. Coarse chronic pulmonary markings. 3. No acute cardiopulmonary process. Head CT 02/07/22 11:28 IMPRESSION: 1. No acute intracranial hemorrhage or edema. 2. Mild cerebral atrophy with moderate small vessel ischemic changes. 3. Minimally displaced bilateral nasal bone fractures. As described on 01/31/2022 radiograph. Renal Ultrasound 02/07/22 14:25 IMPRESSION: 1. Normal size kidneys with no hydronephrosis. 2. Simple cyst RIGHT kidney. Laboratory Results WBC 12.3 10^3/uL (4.0-10.0) H 02/07/22 10:50 RBC 4.27 10^6/uL (4.1-5.3) 02/07/22 10:50 Hgb 13.0 g/dL (11.7-16.6) 02/07/22 10:50 Hct 38.1 % (42.0-52.0) L 02/07/22 10:50 MCV 89.2 fl (80-94) 02/07/22 10:50 MCH 30.4 pg (28.0-34.0) 02/07/22 10:50 MCHC 34.1 g/dL (30.0-36.0) 02/07/22 10:50 RDW 13.9 % (12.1-15.1) 02/07/22 10:50 Plt Count 174 10^3/cmm (130-400) 02/07/22 10:50 MPV 10.7 fL (7.4-10.4) H 02/07/22 10:50 Neut % (Auto) 75.9 % 02/07/22 10:50 Lymph % (Auto) 10.3 % 02/07/22 10:50 Baldwin % (Auto) 13.0 % 02/07/22 10:50 Eos % (Auto) 0.2 % 02/07/22 10:50 Baso % (Auto) 0.3 % 02/07/22 10:50 Neut # (Auto) 9.31 10^3/uL (1.8-7.7) H 02/07/22 10:50 Lymph # (Auto) 1.3 10^3/uL (0.8-4.8) 02/07/22 10:50 Baldwin # (Auto) 1.6 10^3/uL (0.2-0.9) H 02/07/22 10:50 Eos # (Auto) 0.0 10^3/uL (0.0-0.8) 02/07/22 10:50 Baso # (Auto) 0.0 10^3/uL (0.0-0.1) 02/07/22 10:50 Nucleated RBC % (auto) 0 % 02/07/22 10:50 Nucleated RBCs # 0.0 /100WBC 02/07/22 10:50 Sodium 138 mmol/L (136-145) 02/07/22 10:50 Potassium 4.4 mmol/L (3.5-5.1) 02/07/22 10:50 Chloride 104 mmol/L (98-107) 02/07/22 10:50 Carbon Dioxide 22 mmol/L (22-29) 02/07/22 10:50 Anion Gap 16.4 (5-19) 02/07/22 10:50 BUN 59 mg/dL (8-23) H 02/07/22 10:50 Creatinine 1.8 mg/dL (0.7-1.2) H 02/07/22 10:50 GFR Calculation Not Reportable 02/07/22 10:50 Glucose 118 mg/dL (65-115) H 02/07/22 10:50 Calculated Osmolality 304 mOsm/kg (285-295) H 02/07/22 10:50 Calcium 8.6 mg/dL (8.5-10.5) 02/07/22 10:50 Magnesium 1.9 mg/dL (1.7-2.3) 02/07/22 10:50 Total Bilirubin 0.7 mg/dL (0.15-1.2) 02/07/22 10:50 AST 20 U/L (0-40) 02/07/22 10:50 ALT 13 U/L (0-41) 02/07/22 10:50 Alkaline Phosphatase 60 IU/L (40-130) 02/07/22 10:50 Troponin T Baseline 51 ng/L (0-15) H 02/07/22 10:50 Troponin T 120 Minute 41.38 ng/L (0-15) H 02/07/22 13:05 Delta Troponin T -9.62 ABS# (0-10) L 02/07/22 13:05 NT-Pro-B Natriuret Pep 3307 pg/mL (0-450) H 02/07/22 10:50 Total Protein 6.2 g/dL (6.6-8.7) L 02/07/22 10:50 Albumin 3.7 g/dL (3.5-5.2) 02/07/22 10:50 Globulin 2.5 g/dL (1.3-4.6) 02/07/22 10:50 TSH 2.37 uIU/mL (0.27-4.20) 02/07/22 10:50 Random Cortisol 11.72 ug/dL (2.47-19.5) 02/07/22 10:50 Critical Care Time Critical Care Time: Critical Care Time: Yes Total Critical Care Time: 45 Attestation: The high probability of a clinically significant, sudden or life threatening deterioration of the patient's cardiovascular system(s) required my full and direct attention, intervention and personal management. The critical care time is as shown. This time is in addition to time spent performing any reported procedures but includes the following: [x] Data and vital sign review and interpretation [x] Patient assessment, examination and intervention [x] Documentation [x] Medication orders and management Discharge Plan Discharge Patient Disposition: Admitted As Inpatient Admit Provider: Lonny Hollis Clinical Impression: Atrial fibrillation, Syncope, Chronic kidney disease, Ischemic cardiomyopathy Condition: Stable Discharge Diet: Usual diet Discharge Activity: Increase activity as tolerated Coding Level of Care Code ED Sustainable Systems Analyst for Marybeth Fong
[2022-02-07 12:05] LABS: Troponin(5th) Baseline 51 ng/L (0-15)
--- NOTE | 2022-02-07 13:22 | PC.NURSE ---
EKG done at 1320 and shown to ER doctor
--- NOTE | 2022-02-07 13:27 | ECG_ITS ---
[facility] Test Date: 2022-02-07 Pat Name: Raymond Smith Department: Room: Gender: Male [facility] Director: : 1940 Requested By: Lenard Wadsworth Order Number: [id number] Estuardo MD: Chris Olsen M.D. Measurements Intervals [place] Rate: 75 P: ME: QRS: -15 QRSD: 126 T: 6 QT: 402 QTc: 450 Interpretive Statements ATRIAL FIBRILLATION WITH ABERRANT CONDUCTION OR VENTRICULAR PREMATURE COMPLEXES POSSIBLE ANTERIOR MYOCARDIAL INFARCTION , OF INDETERMINATE AGE [30 ms Q WAVE IN V3/V4, OR R < 0.2 mV IN V4] Compared to ECG 08/23/2021 03:18:01 Ventricular premature complex(es) now present Aberrant conduction of supraventricular beat(s) now present Myocardial infarct finding now present Intraventricular conduction delay no longer present T-wave abnormality no longer present Electronically Signed On 02-07-2022 19:46:15 CDT by Chris Olsen M.D. [id number]
[2022-02-07 13:41] LABS: Troponin 5 2HR 41.38 ng/L (0-15)
--- NOTE | 2022-02-07 14:10 | P.HP_ITS ---
Providers/Chief Complaint Admitting Physician: Lonny Hollis MD, hospitalist Primary Care Provider: Pedro Wang MD Chief Complaint: Says his balance is off, tired did fall History of Present Illness Raymond Smith is a 81 year old male who [facility] with complaints of weakness. He reports occasionally he will have episodes of weakness attributed to his atrial fibrillation, but today after resting which he usually does with these episodes it did not resolve. When arriving to the emergency department, the patient reports his heart rate was around 140, atrial fibrillation. He reports currently he feels much better. He was placed on an esmolol drip briefly, and now heart rate is about 85. He has had no recent illness, fever, chills, vomiting. He feels his atrial fibrillation when he is weak, and typically will rest. He has had an episode of fainting in the recent past, approximately 1 week ago. He reports this was a syncopal event where he wound up on the floor abruptly. In the emergency department he was prescribed esmolol, which has since been discontinued. Medications/Allergies Home Medications Medication Instructions Recorded Confirmed Last Taken Type montelukast 10 mg tablet 10 mg PO BEDTIME 10/14/19 02/07/22 02/06/22 History (Singulair) paroxetine HCl 20 mg tablet (Paxil) 20 mg PO QAM tab 03/24/21 02/07/22 02/07/22 History apixaban 5 mg tablet (Eliquis) 5 mg PO BID #180 tab 06/07/21 02/07/22 02/07/22 09:00 Rx metoprolol tartrate 25 mg tablet 12.5 mg PO BID #90 tab 06/07/21 02/07/22 02/07/22 09:00 Rx vitamins A,C,R-ahjx-lpwumm 14,320 1 cap PO BID cap 09/28/21 02/07/22 02/07/22 History unit-226 mg-200 unit capsule (PreserVision AREDS) sacubitril 49 mg-valsartan 51 mg 1 tab PO BID #180 tab 01/19/22 02/07/22 02/07/22 Rx tablet allopurinol 100 mg tablet 100 mg PO QAM 02/07/22 02/07/22 Unknown History furosemide 40 mg tablet 80 mg PO DAILY@15 02/07/22 02/07/22 02/06/22 History potassium chloride 10 mEq 10 meq PO BEDTIME 02/07/22 02/07/22 02/06/22 History tablet,extended release rosuvastatin 10 mg tablet (Crestor) 10 mg PO QPM 02/07/22 02/07/22 02/06/22 History spironolactone 25 mg tablet 25 mg PO DAILY@15 02/07/22 02/07/22 02/06/22 History Allergies Allergy/AdvReac Type Severity Reaction Status Date / Time quinine Allergy Unknown unknown Verified 02/07/22 11:29 Sulfa (Sulfonamide Allergy Unknown unknown Verified 02/07/22 11:29 Antibiotics) Tetracyclines Allergy Unknown unknown Verified 02/07/22 11:29 PFSH Acute PFSH: Medical History (Updated 02/07/22 @ 14:28 by Lonny Hollis MD) Aortic regurgitation Atrial fibrillation Cardiomyopathy Chronic kidney disease Congestive heart failure Depression Gout Hyperlipidemia Surgical History (Updated 02/07/22 @ 14:21 by Lonny Hollis MD) H/O hernia repair History of retinal detachment History of tonsillectomy Family History Father CAD (coronary artery disease) AAA (abdominal aortic aneurysm) Brother Cancer Lung disease Other Hypertension Denies family history of Diabetes Clotting disorder Dementia Chronic kidney disease (CKD) Suicide Anesthesia complication Bleeding disorder Stroke Social History Smoking and tobacco status: never smoked Alcohol intake: never Vitals/I&O/Wt Last Vital Signs Temp 97.3 F L 02/07/22 10:13 Pulse 85 02/07/22 12:17 Resp 20 H 02/07/22 12:17 BP 96/48 02/07/22 12:17 Pulse Ox 94 02/07/22 12:17 02/06/22 02/07/22 02/07/22 22:59 06:59 14:59 Intake Total 15.115 / 15.115 Balance 15.115 / 15.115 Weight last 48 hrs Weight 107.955 kg Physical Exam Narrative: General exam is a white male, conversant and pleasant eating cheese its at bedside. HEENT: Pupils equally round. Contusions noted bilateral cheeks, which she reports is from fall 1 week ago Neck is supple no lymphadenopathy thyromegaly Cardiovascular irregular, irregular without murmur Lungs slight wheeze on the left, clearing after coughing. No crackles. Abdomen is soft nontender positive bowel sounds. No obvious organomegaly exam is deferred Extremities no cyanosis clubbing or edema, cap refill brisk Skin see findings under HEENT Neuro no obvious focal deficits. Data : 02/07/22 10:50 02/07/22 10:50 Other Labs: Calcium 8.6, LFTs normal Troponin 51 with repeat at 41 Albumin 3.7 EKG demonstrates atrial fibrillation, a few PVCs, left axis deviation, poor R wave progression Head CT no acute changes other than nasal fracture, noted previously on January 31 Chest x-ray cardiomegaly, no infiltrate A&P Assessment and plan (1) Atrial fibrillation: Patient presented with atrial fibrillation with rapid ventricular rate. He received an esmolol drip briefly, and has since been taken off of it and heart rate has persisted around 85. He is fully anticoagulated. Last echocardiogram, in July 2021 demonstrated an EF of 55%, improved from previous. Patient reports his blood pressure is always low, and now with concerns with atrial fibrillation with rapid ventricular rate as well as recent syncopal episode 1 week ago may need event monitor at discharge. For now observation. As blood pressure is borderline low, and patient had r ecent syncopal episode we will have cardiology evaluate to determine if any of his chronic medications need to change. Status: Acute Qualifiers: Atrial fibrillation type: other persistent Qualified Code(s): I48.19 - Other persistent atrial fibrillation (2) Weakness: See notations above. Concerned his weakness may be atrial fibrillation with rapid ventricular rate, or attributed to his hypotension at times. Status: Acute (3) Syncope: Patient had a syncopal episode approximately 1 week ago. Etiology was not clear. He saw a nurse practitioner who performed some x-rays showing no fracture. CT scan without contrast here demonstrates no evidence of subdural, or CVA. Syncopal episode could be due to atrial fibrillation with rapid ventricular rate, although pauses are not excluded, nor is hypotension. Check orthostatic blood pressures twice daily Status: Acute (4) Cardiomyopathy: Patient with history of nonischemic cardiomyopathy. He is currently on Entresto, and Aldactone. Blood pressure is somewhat low at times. Last ejection fraction 55%. Secondary to his atrial fibrillation with rapid ventricular rate, on presentation it may be desired to increase metoprolol. May need to change his chronic medications to compensate for this. Status: Acute Qualifiers: Cardiomyopathy type: dilated Qualified Code(s): I42.0 - Dilated cardiomyopathy (5) Chronic kidney disease: Patient with chronic kidney disease, with new baseline creatinine after hospitalization for COVID earlier in the year. From what he says he was to follow-up with nephrology. Obtain renal ultrasound Avoid renal toxic medications. Discussed with patient. Status: Acute Qualifiers: Chronic kidney disease stage: stage 3 (moderate) Qualified Code(s): N18.3 - Chronic kidney disease, stage 3 (moderate) Plan Multiple other medical problems as outlined in past medical history Full code Tennilleis will suffice for DVT prophylaxis Attestations Medical Necessity Statement*: Will need less than 2 midnight stay for evaluation and treatment of atrial fibrillation with rapid ventricular rate. Coding Level of Care Code Acute Kiss Setter Hand for [facility] Fwd Diagnoses Atrial fibrillation I48.19 Atrial fibrillation type: other persistent Weakness R53.1 Syncope R55 Cardiomyopathy I42.0 Cardiomyopathy type: dilated Chronic kidney disease N18.3 Chronic kidney disease stage: stage 3 (moderate)
--- NOTE | 2022-02-07 14:25 | US_ITS ---
WS: [id number] RENAL ULTRASOUND HISTORY: renal failure COMPARISON: None available. TECHNIQUE: 2-D and color Doppler imaging of the kidney submitted. Right kidney: 10.3 cm x 5.0 cm x 6.0 cm. Normal size kidney. No hydronephrosis. Exophytic cyst from the mid kidney measures 2.3 x 2.4 x 2.5 cm . No solid mass. Left kidney: 13.0 cm x 6.2 cm x 5.5 cm. Normal echogenicity with no hydronephrosis or mass. Aorta: Normal. Urinary Bladder: Normal distention. US/US renal BI* [id number] IMPRESSION: 1. Normal size kidneys with no hydronephrosis. 2. Simple cyst RIGHT kidney.
[2022-02-07 14:49] LABS: Magnesium 1.9 mg/dL (1.7-2.3); Thyroid Stimulating Hormone 2.37 uIU/mL (0.27-4.20)
[2022-02-07 14:50] LABS: Cortisol Random 11.72 ug/dL (2.47-19.5)
--- NOTE | 2022-02-07 17:27 | ECG_ITS ---
[facility] Test Date: 2022-02-07 Pat Name: Raymond Smith Department: Room: 276 Gender: Male Jai Alai Player: : 1940 Requested By: Lenard Wadsworth Order Number: [id number] Estuardo MD: Chris Olsen M.D. Measurements Intervals [place] Rate: 66 P: NC: QRS: -9 QRSD: 126 T: 2 QT: 412 QTc: 434 Interpretive Statements ATRIAL FIBRILLATION POSSIBLE ANTERIOR MYOCARDIAL INFARCTION , PROBABLY OLD [30 ms Q WAVE IN V3/V4, OR R < 0.2 mV IN V4] ABNORMAL RHYTHM ECG Compared to ECG 02/07/2022 13:19:44 Ventricular premature complex(es) no longer present Aberrant conduction of supraventricular beat(s) no longer present Myocardial infarct finding still present Electronically Signed On 02-07-2022 19:48:47 CDT by Chris Olsen M.D. [id number]
--- NOTE | 2022-02-07 17:33 | P.CONIM_ITS ---
Providers/Reason For Consult Consulting Physician/Specialty*: Norman Sheppard MD/Cardiology Reason for Consult*: Atrial fibrillation/hypotension Requesting Physician: Dr Hollis Attending Physician: Lonny Hollis MD Primary Care Provider: Pedro Wang MD History of Present Illness History of Present Illness Raymond Smith is a 81 year old male with past medical history of atrial fibrillation and congestive heart failure with recovered EF presented to the hospital with weakness. He feels weaker when he is in A. fib however the symptoms are not resolving and he came to the hospital. In the hospital he was found to have heart rates in 140s. He was put on esmolol drip which improved his heart rates. Currently in 60-80 range. He denies any chest pain. He had a recent fall secondary to syncopal event. He says he got out of his car and started walking when all of a sudden passed out. His blood pressure has been staying on the lower side. Review of Systems General: Reports: 10 or more systems reviewed and unremarkable except in HPI and below Narrative: CONSTITUTIONAL: Feels weak HEENT: Normocephalic, atraumatic.[] RESPIRATORY: No cough, sputum, hemoptysis or wheezing.[] CARDIOVASCULAR: No shortness of breath, chest pain, PND, orthopnea, lower extremity edema, presyncope or syncope. [] GI: no nausea vomiting diarrhea. [] DRY BOX OPERATOR: No numbness, tingling, weakness or loss of function in any part of the body. [] MUSCULOSKELETAL: No knee or joint pain or rashes. [] Medications/Allergies Home Medications Medication Instructions Recorded Confirmed Last Taken Type montelukast 10 mg tablet 10 mg PO BEDTIME 10/14/19 02/07/22 02/06/22 History (Singulair) paroxetine HCl 20 mg tablet (Paxil) 20 mg PO QAM tab 03/24/21 02/07/22 02/07/22 History apixaban 5 mg tablet (Eliquis) 5 mg PO BID #180 tab 06/07/21 02/07/22 02/07/22 09:00 Rx metoprolol tartrate 25 mg tablet 12.5 mg PO BID #90 tab 06/07/21 02/07/22 02/07/22 09:00 Rx vitamins A,C,B-rqyd-dfmbrr 14,320 1 cap PO BID cap 09/28/21 02/07/22 02/07/22 History unit-226 mg-200 unit capsule (PreserVision AREDS) sacubitril 49 mg-valsartan 51 mg 1 tab PO BID #180 tab 01/19/22 02/07/22 02/07/22 Rx tablet allopurinol 100 mg tablet 100 mg PO QAM 02/07/22 02/07/22 Unknown History furosemide 40 mg tablet 80 mg PO DAILY@15 02/07/22 02/07/22 02/06/22 History potassium chloride 10 mEq 10 meq PO BEDTIME 02/07/22 02/07/22 02/06/22 History tablet,extended release rosuvastatin 10 mg tablet (Crestor) 10 mg PO QPM 02/07/22 02/07/22 02/06/22 History spironolactone 25 mg tablet 25 mg PO DAILY@15 02/07/22 02/07/22 02/06/22 History Allergies Allergy/AdvReac Type Severity Reaction Status Date / Time cephalexin Allergy Unknown ADR-Confusi Verified 02/07/22 15:45 on quinine Allergy Unknown unknown Verified 02/07/22 11:29 Sulfa (Sulfonamide Allergy Unknown unknown Verified 02/07/22 11:29 Antibiotics) Tetracyclines Allergy Unknown unknown Verified 02/07/22 11:29 Current Medications Generic Name Dose Route Start Last Admin Trade Name Freq PRN Reason Stop Dose Admin Spironolactone 25 mg 02/07/22 15:21 02/07/22 16:19 Spironolactone 25 Mg Tablet PO Not Given DAILY@15 [facility] PFSH Acute PFSH: Medical History Aortic regurgitation Atrial fibrillation Cardiomyopathy Chronic kidney disease Congestive heart failure Depression Gout Hyperlipidemia Surgical History H/O hernia repair History of retinal detachment History of tonsillectomy Family History Father CAD (coronary artery disease) AAA (abdominal aortic aneurysm) Brother Cancer Lung disease Other Hypertension Denies family history of Diabetes Clotting disorder Dementia Chronic kidney disease (CKD) Suicide Anesthesia complication Bleeding disorder Stroke Social History Smoking and tobacco status: never smoked Alcohol intake: never Vitals/I&O/Wt Last Vital Signs Temp 98.3 F 02/07/22 15:17 Pulse 76 02/07/22 16:02 Resp 18 02/07/22 15:17 BP 103/49 02/07/22 15:17 Pulse Ox 95 02/07/22 16:02 02/07/22 02/07/22 02/07/22 06:59 14:59 22:59 Intake Total 15.115 / 15.115 Balance 15.115 / 15.115 Weight last 48 hrs Weight 251 lb Weight 238 lb Physical Exam Narrative: GENERAL: Patient is alert, awake and oriented x3. [] NECK: No jugular vein distension. [] HEENT: No cyanosis. No icterus. No pallor. [] HEART: Regular S1 and S2. No murmur, rub or gallop. [] LUNGS: Clear to auscultate bilaterally. [] ABDOMEN: Soft, nontender and nondistended. Positive bowel sounds. No guarding, rebound or tenderness. [] CENTRAL NERVOUS SYSTEM: Grossly nonfocal. [] EXTREMITIES: Lower extremities with 1+ edema bilaterally. Pulses palpable in the lower extremities, both dorsalis pedis and posterior tibial. [] Data : 02/08/22 02:58 02/08/22 02:58 A&P Assessment and plan (1) Syncope: Status: Acute (2) Atrial fibrillation: Status: Acute Qualifiers: Atrial fibrillation type: other persistent Qualified Code(s): I48.19 - Other persistent atrial fibrillation (3) Congestive heart failure: Status: Acute Qualifiers: Heart failure type: combined systolic and diastolic Heart failure chronicity: chronic Qualified Code(s): I50.42 - Chronic combined systolic (congestive) and diastolic (congestive) heart failure (4) Chronic kidney disease: Status: Acute Qualifiers: Chronic kidney disease stage: stage 3 (moderate) Qualified Code(s): N18.3 - Chronic kidney disease, stage 3 (moderate) Plan Patient presented with atrial fibrillation with RVR. Heart rates are better controlled. Continue metoprolol at this dose. His blood pressures are staying low. I discussed with patient decreasing Entresto dose however he wants to continue at the same dose as he is currently on. His recent syncopal episode could be secondary to orthostatic hypotension versus cardiac etiology. At time of discharge, will recommend putting him on an event monitor. He will also keep a log of his blood pressure until he is seen by his outpatient customer sales service manager Dr. Olsen. Continue telemetry monitoring overnight. We will follow tomorrow and give medication recommendations. Thank you for involving us with care of this stevan ent. Coding Level of Care Code Acute Podiatry Assistant for [facility] Fwd Diagnoses Syncope R55 Atrial fibrillation I48.19 Atrial fibrillation type: other persistent Congestive heart failure I50.42 Heart failure type: combined systolic and diastolic Heart failure chronicity: chronic Chronic kidney disease N18.3 Chronic kidney disease stage: stage 3 (moderate)
[2022-02-07 17:35] LABS: Troponin 5 6HR 38.72 ng/L (0-15)
[2022-02-07 17:36] LABS: Bilirubin Urine Neg (Negative); Blood Urine Trace (Negative); Glucose Urine UA Norm (Normal); Ketones Urine Negative (Negative); Leukocyte Esterase Urine Negative (Negative); Nitrate Urine Negative (Negative); Protein Urine Neg (Negative); RBC Urine 0-4 /hpf (0-2); Specific Gravity, Urine 1.015 (1.005-1.030); Squamous Epithelial Cell Urine 0-4 /hpf (0-5); Urine Appearance Clear (CLEAR); Urine Color Yellow (Yellow); Urobilinogen Urine Norm (Negative); pH Urine 5 (5-7)
[2022-02-07 17:37] LABS: Hyaline Casts Urine 0-4 /lpf; Mucus Urine TRACE /hpf
[2022-02-07 17:38] LABS: Add Urine Culture? Yes
[2022-02-07] MEDS: apixaban 5 mg Tablet PO (17:50)
[2022-02-07] MEDS: metoprolol tartrate 25 mg Tablet 12.5 MG PO (17:51)
[2022-02-07] MEDS: atorvastatin 40 mg Tablet PO (17:51)
--- NOTE | 2022-02-07 19:53 | PC.NURSE ---
Patient given urinal and educated it is best to use urinal for output measurement. Patient I'll be using the toilet.
[2022-02-07] MEDS: montelukast sodium 10 mg Tablet PO (20:08)
[2022-02-07] MEDS: potassium chloride ER 10 mEq Tablet PO (20:09)
--- NOTE | 2022-02-07 21:14 | PC.NURSE ---
Patient states the top number on my blood pressure always is between 80 and 90 at home.
[2022-02-08] VITALS (8 sets, daily range): BP systolic 92–100; BP diastolic 52–57; PULSE 56–98; RESP 16–18; TEMP 36.8–37.1; O2SAT 95–97
[2022-02-08 03:28] LABS: Basophils % 0.4 %; Eosinophils # 0.1 10^3/uL (0.0-0.8); Eosinophils % 0.9 %; Hematocrit 33.9 % (42.0-52.0); Hemoglobin 11.7 g/dL (11.7-16.6); Lymphocytes # 1.2 10^3/uL (0.8-4.8); Lymphocytes % 14.1 %; Mean Corpuscular HGB Conc 34.5 g/dL (30.0-36.0); Mean Corpuscular Hemoglobin 30.6 pg (28.0-34.0); Mean Corpuscular Volume 88.7 fl (80-94); Mean Platelet Volume 10.6 fL (7.4-10.4); Monocytes # 1.4 10^3/uL (0.2-0.9); Neutrophils # 5.83 10^3/uL (1.8-7.7); Neutrophils % 68.2 %; Nucleated Red Blood Cells % 0 %; Platelet Count 154 10^3/cmm (130-400); Red Blood Count 3.82 10^6/uL (4.1-5.3); Red Cell Distribution Width 13.7 % (12.1-15.1); White Blood Count 8.5 10^3/uL (4.0-10.0)
--- NOTE | 2022-02-08 03:32 | PC.NURSE ---
Patient's heart rate currently running 50s-70s A-FIB.
[2022-02-08 03:41] LABS: Alanine Aminotransferase 11 U/L (0-41); Albumin Level 2.9 g/dL (3.5-5.2); Alkaline Phosphatase 51 IU/L (40-130); Aspartate Amino Transferase 14 U/L (0-40); Blood Urea Nitrogen 51 mg/dL (8-23); Calcium 8.6 mg/dL (8.5-10.5); Carbon Dioxide 25 mmol/L (22-29); Chloride 108 mmol/L (98-107); Globulin 2.4 g/dL (1.3-4.6); Glucose 155 mg/dL (65-115); Magnesium 2.1 mg/dL (1.7-2.3); Osmolality Calculated 305 mOsm/kg (285-295); Sodium 139 mmol/L (136-145); Total Bilirubin 0.7 mg/dL (0.15-1.2); Total Protein 5.3 g/dL (6.6-8.7)
[2022-02-08] MEDS: PARoxetine 20 mg Tablet PO (05:18)
[2022-02-08] MEDS: allopurinol 100 mg Tablet PO (05:18)
--- NOTE | 2022-02-08 08:24 | P.DS_ITS ---
Discharge Providers Date of Admission: 02/07/22 13:29 Date of Discharge: February 08, 2022 Attending Provider at Admission: Lonny Hollis MD Attending Provider at Discharge: Lonny Hollis MD Primary Care Provider: Pedro Wang MD Diagnoses at Discharge Discharge Diagnosis (1) Atrial fibrillation: Status: Acute Qualifiers: Atrial fibrillation type: other persistent Qualified Code(s): I48.19 - Other persistent atrial fibrillation (2) Weakness: Status: Acute (3) Syncope: Status: Acute (4) Cardiomyopathy: Status: Acute Qualifiers: Cardiomyopathy type: dilated Qualified Code(s): I42.0 - Dilated cardiomyopathy (5) Chronic kidney disease: Status: Acute Qualifiers: Chronic kidney disease stage: stage 3 (moderate) Qualified Code(s): N18.3 - Chronic kidney disease, stage 3 (moderate) Reason for Visit Reason for Visit: Says his balance is off, tired did fall Hospital Course Hospital Course Raymond is a 81-year-old white male with history of cardiomyopathy presents to the hospital with feeling very weak, and was found to be in atrial fibrillation with rapid ventricular rate. He reports his blood pressure is typically around 90 or a little bit lower. He did have a syncopal episode approximately 1 week ago. He has been doing more activity outside. Last echocardiogram, in July, showed an EF of 55% improved from previous. He was placed in the hospital, and his Entresto and Lasix dose were held initially. CT head demonstrated no obvious bleeding, or stroke. He was orally hydrated. He was placed on telemetry. Cardiology consult was obtained for concern of possible need for medication adjustments. With this treatment his heart rate came down without any rate controlling agents other than his usual. The next day his systolic blood pressure was over 90, ranging from around 92-100 systolic which the patient reports is much higher than his usual. He did not feel any dizziness, and reported his weakness had lifted. It was decided to lower his dose of Entresto, as well as his dose of Lasix on discharge. He will take 60 mg of Lasix in the morning instead of 80. He will be changed to the Entresto 24/ twice daily. He will also be discharged with an event monitor. Occasional bradycardia is noted when the patient sleeps. He will follow-up with his dairy nutritionist, in 4 to 5 days as well as his primary care provider. Secondary to medication changes a BMP will be obtained then. Creatinine on discharge is 1.4, improved from 1.8. Physical Exam Narrative: General exam no distress Neck is supple Cardiovascular irregular, irregular without murmur Lungs clear Abdomen is soft with positive bowel sounds Extremities no cyanosis clubbing or edema Discharge Data Studies Completed and Pending Completed Studies During Hospitalization Category Date Time Status CT head wo con* [id number] Stat Cat Scan 02/07/22 11:28 Completed XR chest 1V portable [id number] Stat Exams 02/07/22 10:38 Completed US renal BI* [id number] Routine Ultrasound 02/07/22 14:25 Completed Pending at discharge Category Date Time Status Urine Culture Stat Lab 02/07/22 14:35 Received Radiology Impressions Chest X-Ray 02/07/22 10:38 IMPRESSION: 1. Heart is enlarged but stable when compared to the prior exam. 2. Coarse chronic pulmonary markings. 3. No acute cardiopulmonary process. Head CT 02/07/22 11:28 IMPRESSION: 1. No acute intracranial hemorrhage or edema. 2. Mild cerebral atrophy with moderate small vessel ischemic changes. 3. Minimally displaced bilateral nasal bone fractures. As described on 01/31/2022 radiograph. Renal Ultrasound 02/07/22 14:25 IMPRESSION: 1. Normal size kidneys with no hydronephrosis. 2. Simple cyst RIGHT kidney. Laboratory Results WBC 8.5 10^3/uL (4.0-10.0) 02/08/22 02:58 RBC 3.82 10^6/uL (4.1-5.3) L 02/08/22 02:58 Hgb 11.7 g/dL (11.7-16.6) 02/08/22 02:58 Hct 33.9 % (42.0-52.0) L 02/08/22 02:58 MCV 88.7 fl (80-94) 02/08/22 02:58 MCH 30.6 pg (28.0-34.0) 02/08/22 02:58 MCHC 34.5 g/dL (30.0-36.0) 02/08/22 02:58 RDW 13.7 % (12.1-15.1) 02/08/22 02:58 Plt Count 154 10^3/cmm (130-400) 02/08/22 02:58 MPV 10.6 fL (7.4-10.4) H 02/08/22 02:58 Neut % (Auto) 68.2 % 02/08/22 02:58 Lymph % (Auto) 14.1 % 02/08/22 02:58 [place] % (Auto) 16.0 % 02/08/22 02:58 Eos % (Auto) 0.9 % 02/08/22 02:58 Baso % (Auto) 0.4 % 02/08/22 02:58 Neut # (Auto) 5.83 10^3/uL (1.8-7.7) 02/08/22 02:58 Lymph # (Auto) 1.2 10^3/uL (0.8-4.8) 02/08/22 02:58 [place] # (Auto) 1.4 10^3/uL (0.2-0.9) H 02/08/22 02:58 Eos # (Auto) 0.1 10^3/uL (0.0-0.8) 02/08/22 02:58 Baso # (Auto) 0.0 10^3/uL (0.0-0.1) 02/08/22 02:58 Nucleated RBC % (auto) 0 % 02/08/22 02:58 Nucleated RBCs # 0.0 /100WBC 02/08/22 02:58 Sodium 139 mmol/L (136-145) 02/08/22 02:58 Potassium 5.0 mmol/L (3.5-5.1) 02/08/22 02:58 Chloride 108 mmol/L (98-107) H 02/08/22 02:58 Carbon Dioxide 25 mmol/L (22-29) 02/08/22 02:58 Anion Gap 11.0 (5-19) 02/08/22 02:58 BUN 51 mg/dL (8-23) H 02/08/22 02:58 Creatinine 1.4 mg/dL (0.7-1.2) H 02/08/22 02:58 GFR Calculation Not Reportable 02/08/22 02:58 Glucose 155 mg/dL (65-115) H 02/08/22 02:58 Calculated Osmolality 305 mOsm/kg (285-295) H 02/08/22 02:58 Calcium 8.6 mg/dL (8.5-10.5) 02/08/22 02:58 Magnesium 2.1 mg/dL (1.7-2.3) 02/08/22 02:58 Total Bilirubin 0.7 mg/dL (0.15-1.2) 02/08/22 02:58 AST 14 U/L (0-40) 02/08/22 02:58 ALT 11 U/L (0-41) 02/08/22 02:58 Alkaline Phosphatase 51 IU/L (40-130) 02/08/22 02:58 Troponin T Baseline 51 ng/L (0-15) H 02/07/22 10:50 Troponin T 120 Minute 41.38 ng/L (0-15) H 02/07/22 13:05 Delta Troponin T -9.62 ABS# (0-10) L 02/07/22 13:05 Troponin T Hi Sens 6Hr 38.72 ng/L (0-15) H 02/07/22 16:58 Troponin T Hi Sens 6Hr Delta -12.28 ng/L (0-12) L 02/07/22 16:58 NT-Pro-B Natriuret Pep 3307 pg/mL (0-450) H 02/07/22 10:50 Total Protein 5.3 g/dL (6.6-8.7) L 02/08/22 02:58 Albumin 2.9 g/dL (3.5-5.2) L 02/08/22 02:58 Globulin 2.4 g/dL (1.3-4.6) 02/08/22 02:58 TSH 2.37 uIU/mL (0.27-4.20) 02/07/22 10:50 Random Cortisol 11.72 ug/dL (2.47-19.5) 02/07/22 10:50 Urine Color Yellow (Yellow) 02/07/22 14:35 Urine Appearance Clear (CLEAR) 02/07/22 14:35 Urine pH 5 (5-7) 02/07/22 14:35 Ur Specific [place] 1.015 (1.005-1.030) 02/07/22 14:35 Urine Protein Neg (Negative) 02/07/22 14:35 Urine Glucose (UA) Norm (Normal) 02/07/22 14:35 Urine Ketones Negative (Negative) 02/07/22 14:35 Urine Blood Trace (Negative) H 02/07/22 14:35 Urine Nitrate Negative (Negative) 02/07/22 14:35 Urine Bilirubin Neg (Negative) 02/07/22 14:35 Urine Urobilinogen Norm mg/dL (Negative) 02/07/22 14:35 Ur Leukocyte Esterase Negative (Negative) 02/07/22 14:35 Urine RBC 0-4 /hpf (0-2) H 02/07/22 14:35 Urine WBC 5-10 /hpf (0-5) H 02/07/22 14:35 Ur Squamous Epith Cells 0-4 /hpf (0-5) H 02/07/22 14:35 Amorphous Sediment Not Reportable 02/07/22 14:35 Urine Bacteria None /hpf (NONE) 02/07/22 14:35 Hyaline Casts 0-4 /lpf H 02/07/22 14:35 Urine Mucus Trace /hpf 02/07/22 14:35 Urine Yeast 1+ /hpf H 02/07/22 14:35 Vitals Last Vital Signs Temp 98.5 F 02/08/22 07:50 Pulse 58 L 02/08/22 07:51 Resp 16 02/08/22 07:50 BP 92/56 02/08/22 07:51 Pulse Ox 97 02/08/22 07:50 Discharge Plan Discharge Patient Disposition: Home Condition: Stable Prescriptions: New furosemide [Lasix] 40 mg tablet 60 mg PO DAILY Qty: 45 0RF Entresto 24-26 mg Tablet 1 ea PO BID Qty: 30 0RF Continued montelukast [Singulair] 10 mg tablet 10 mg PO BEDTIME 0RF PreserVision AREDS 14,320-226-200 [id number] capsule 1 cap PO BID 0RF paroxetine HCl [Paxil] 20 mg tablet 20 mg PO QAM 0RF Eliquis 5 mg tablet 5 mg PO BID Qty: 180 3RF metoprolol tartrate 25 mg tablet 12.5 mg PO BID Qty: 90 3RF allopurinol 100 mg tablet 100 mg PO QAM 0RF potassium chloride 10 mEq tablet extended release 10 meq PO BEDTIME 0RF spironolactone 25 mg tablet 25 mg PO DAILY@15 0RF Crestor 10 mg tablet 10 mg PO QPM 0RF Discontinued sacubitril-valsartan 49-51 mg tablet 1 tab PO BID Qty: 180 3RF furosemide 40 mg tablet 80 mg PO DAILY@15 0RF Discharge Orders: Discharge Order (Routine); Ordered 02/08/22 Ordered By: Lonny Hollis Other Ambulatory Orders: MCT/Event Monitor 21 Days (Routine) Timeframe: 1 Day Facility: [facility] - Location: Radiology Ordered By: Lonny Hollis Referrals: Chris Olsen MD [Physician] - 4-7 days (BMP on follow-up) Pedro Wang MD [Primary Care Provider] - 4-7 days Discharge Diet: Usual diet Discharge Activity: Increase activity as tolerated Patient Instructions: Opioid Safety Activity Restrictions/Additional Instructions: Take all medicine as prescribed. Note the dose of Entresto has been lowered, and your dose of Lasix has been lowered. Follow-up with cardiology in 4 to 5 days, primary care provider the same. Will need electrolytes checked at that time. Discharge Attestations Time Spent in Discharge Care*: greater than 30 min Quality Metrics Clinical Quality Measures [ No reported AMI, CVA or VTE this stay] Coding Level of Care Code Acute [facility] note Diagnoses Atrial fibrillation I48.19 Atrial fibrillation type: other persistent Weakness R53.1 Syncope R55 Cardiomyopathy I42.0 Cardiomyopathy type: dilated Chronic kidney disease N18.3 Chronic kidney disease stage: stage 3 (moderate)
[2022-02-08] MEDS: FUROsemide 40 mg Tablet PO (08:48)
[2022-02-08] MEDS: apixaban 5 mg Tablet PO (08:48)
[2022-02-08] MEDS: metoprolol tartrate 25 mg Tablet 12.5 MG PO (08:48)
[2022-02-08] MEDS: sacubitril/valsartan 24-26 mg Tablet 1 EACH PO (08:49)
--- NOTE | 2022-02-08 09:31 | P.PN_ITS ---
Subjective Subjective: Patient is doing better. Does not feel symptoms of weakness he had come in with. Heart rate is well controlled Vitals/I&O/Wt Last Vital Signs Temp 98.5 F 02/08/22 07:50 Pulse 58 L 02/08/22 07:51 Resp 16 02/08/22 07:50 BP 92/56 02/08/22 07:51 Pulse Ox 97 02/08/22 07:50 02/07/22 02/08/22 02/08/22 22:59 06:59 14:59 Intake Total 360 / 375.115 960 / 1335.115 240 / 240 Balance 360 / 375.115 960 / 1335.115 240 / 240 Weight last 48 hrs Weight 251 lb Weight 238 lb Physical Exam Narrative: GENERAL: Patient is alert, awake and oriented x3. [] NECK: No jugular vein distension. [] HEENT: No cyanosis. No icterus. No pallor. [] HEART: Regular S1 and S2. No murmur, rub or gallop. [] LUNGS: Clear to auscultate bilaterally. [] ABDOMEN: Soft, nontender and nondistended. Positive bowel sounds. No guarding, rebound or tenderness. [] CENTRAL NERVOUS SYSTEM: Grossly nonfocal. [] EXTREMITIES: Lower extremities with no edema bilaterally. Pulses palpable in the lower extremities, both dorsalis pedis and posterior tibial. [] Data : 02/08/22 02:58 02/08/22 02:58 A&P Assessment and plan (1) Syncope: Status: Acute (2) Atrial fibrillation: Status: Acute Qualifiers: Atrial fibrillation type: other persistent Qualified Code(s): I48.19 - Other persistent atrial fibrillation (3) Congestive heart failure: Status: Acute Qualifiers: Heart failure type: combined systolic and diastolic Heart failure chronicity: chronic Qualified Code(s): I50.42 - Chronic combined systolic (congestive) and diastolic (congestive) heart failure (4) Chronic kidney disease: Status: Acute Qualifiers: Chronic kidney disease stage: stage 3 (moderate) Qualified Code(s): N18.3 - Chronic kidney disease, stage 3 (moderate) Plan Patient presented with atrial fibrillation with RVR. Heart rates are better controlled. Continue metoprolol at current dose. We will recommend cutting the dose of Entresto back to 24/26 mg Order event monitor as has occasional bradycardia along with A. fib with RVR He will also keep a log of his blood pressure until he is seen by his outpatient manufacturing tech Dr. Olsen. Patient is stable to be discharged from cardiology standpoint. Thank you for involving us with care of this patient. Attestations Medical Necessity Statement*: Care expected to cross 2 midnights Coding Level of Care Code Acute Engineering Design Supervisor for [facility] Fwd Diagnoses Syncope R55 Atrial fibrillation I48.19 Atrial fibrillation type: other persistent Congestive heart failure I50.42 Heart failure type: combined systolic and diastolic Heart failure chronicity: chronic Chronic kidney disease N18.3 Chronic kidney disease stage: stage 3 (moderate)
--- NOTE | 2022-02-08 09:58 | PC.NURSE ---
pt wants me to call a week supply for his new dose of entresto in our employee pharmacy and wants me to call [facility] to let them know about this new Rx. [facility] rep Acuña called and talked to her about the new Rx and pt's request to call this in. She stated it usually takes 3 business days to deliver it to the pt via mailbox. I talked to the pt to let him know that we called in his new Rx thru employee pharmacy for a month supply w/coupon. Pt is okay with this.
--- NOTE | 2022-02-08 10:27 | PC.CHAP ---
``````````````````````````````````````````````` Pastoral Care Encounter/Spiritual Assessment Type of Contact [] Declined bender hand visit [] Patient/Family/Request visit [] Outpatient visit [] Follow-up visit [] Physician referral [] Code/Alert [x] Routine visit [] Staff referral [] Actively dying [] Patient sleeping [] Family support [] [] Out of room [] Palliative care [] [] Receiving care in room [] Pre-surgical visit [] Trauma [] Long length of stay [] ICU visit [] Other: Relational/Emotional Strength [x] Patient feels connected with others/family/visitors/staff [] Distress [] Loneliness/isolation [] Abandonment Spirituality of Patient x[] Person of Melissa [] Attends Yazdanism of their Melissa [x] Believes in Prayer [] Reads Bible or Mandaen materials [] There are Spiritual issues to be addressed Cellophaner Interventions [x] Prayer [x] Active listening [x] Non-anxious presence [] Spiritual/emotional support [] Crisis/trauma care [] Spiritual counseling [] Bereavement support [] Provided bereavement packet [] Provided Bible/devotional materials [] Provided toy/stuffed animal, coloring book to patient or family member [] Provided Communion [] Anointing/[place] [] Salvation [x] Completed spiritual assessment [] Other: Impact on Illness or Injury [] Angry [] Fearful [] Anxious [] Often cries [] Exhaustion [] Unable to work [] Unable to attend denominational [] Unable to walk/stand [] Unable to read [] Unable to drive [] Unable to eat/drink [] Unable to sleep [] Unable to be with family [] Patient intubated [] Other: Summary Time spent with patient 15 min ``````````````````````````````````
--- NOTE | 2022-02-08 10:39 | PC.NURSE ---
meds to bed
== END 2022-02-08 13:00 | disposition home or self-care (01) ==
LOC: ER 11:51 → MEDSURG 14:49
PROVIDERS: Admitting Provider Internal Medicine; Emergency Provider Family Medicine; PCP Family Medicine; Visit Provider Internal Medicine
DX: I48.19 Other persistent atrial fibrillation (principal); R53.1 Weakness; R55 Syncope and collapse; I42.0 Dilated cardiomyopathy; N18.30 Chronic kidney disease, stage 3 unspecified; Z91.81 History of falling; I50.42 Chronic combined systolic (congestive) and diastolic (congestive) heart failure; E78.5 Hyperlipidemia, unspecified
CPT/HCPCS: 36415; 70450; 71045; 76770; 80053; 81001; 82533; 83735; 83880; 84443; 84484; 85025; 87086; 93005; 96374; 99285; G0378; J3490

== ENCOUNTER → 2022-02-11 11:02 | Outpatient (BNVA) | payer MEDICARE, SELFPAY | PROVIDERS: PCP Family Medicine; Visit Provider Nurse Practitioner Family | DX: R55 Syncope and collapse (principal); I48.91 Unspecified atrial fibrillation | CPT/HCPCS: 93229; 99213 ==

== ENCOUNTER → 2022-03-03 10:15 | Outpatient (BNVA) | payer MEDICARE, OTHER, SELFPAY | PROVIDERS: PCP Family Medicine; Visit Provider Internal Medicine Cardiovascular Disease | DX: I48.91 Unspecified atrial fibrillation (principal); I50.42 Chronic combined systolic (congestive) and diastolic (congestive) heart failure; N18.9 Chronic kidney disease, unspecified; I35.1 Nonrheumatic aortic (valve) insufficiency; E78.5 Hyperlipidemia, unspecified | CPT/HCPCS: 36415; 80048; 83880; 99214 ==

== ENCOUNTER → 2022-06-22 13:15 | Outpatient (BNVA) | payer MEDICARE, OTHER, SELFPAY | PROVIDERS: PCP Family Medicine; Visit Provider Nurse Practitioner Family | DX: I25.5 Ischemic cardiomyopathy (principal); I48.91 Unspecified atrial fibrillation; Z79.01 Long term (current) use of anticoagulants | CPT/HCPCS: 99214 ==

== ENCOUNTER → 2022-12-14 11:21 | Outpatient (BNVA) | payer MEDICARE, OTHER, SELFPAY | PROVIDERS: PCP Family Medicine; Visit Provider Internal Medicine Cardiovascular Disease | DX: I25.5 Ischemic cardiomyopathy (principal); I48.91 Unspecified atrial fibrillation; I35.1 Nonrheumatic aortic (valve) insufficiency; Z79.01 Long term (current) use of anticoagulants; N18.9 Chronic kidney disease, unspecified | CPT/HCPCS: 99214 ==

== ENCOUNTER 2023-03-22 19:14 | Emergency (ER) | payer MEDICARE, OTHER, SELFPAY ==
[2023-03-22 19:21] VITALS: BMI 29.5
--- NOTE | 2023-03-22 19:22 | W.ED.CHESTPA ---
HPI - Chest Pain General: Chief Complaint: Chest Pain Stated Complaint: chest pain Time Seen by Provider: 03/22/23 19:22 Limitations: altered mental status History of Present Illness: Mr. Smith is an 82-year-old male presented the emergency department due to chest pain. Upon arrival in room patient has had a change in clinical status and is now unresponsive with abnormal respirations. Per family history he had a fever last night and felt generally unwell including chest pain today. He was seen by primary care. He took a nap and developed worsening chest pain approximately 1 hour prior to arrival with shortness of breath. Review of Systems General: Reports: ROS unobtainable due to medical condition and ROS unobtainable due to mental status PFS ED PFSH: Medical History Aortic regurgitation Atrial fibrillation Cardiomyopathy Chronic kidney disease Congestive heart failure Depression Gout Hyperlipidemia Surgical History H/O hernia repair History of retinal detachment History of tonsillectomy Family History Father CAD (coronary artery disease) AAA (abdominal aortic aneurysm) Brother Cancer Lung disease Other Hypertension Denies family history of Diabetes Clotting disorder Dementia Chronic kidney disease (CKD) Suicide Anesthesia complication Bleeding disorder Stroke Social History Smoking and tobacco status: never smoked Alcohol intake: never Substance/Drug Use: never Physical Exam Const: GENERAL APPEARANCE: ill appearing Resp: OTHER: Irregular GI: COMMON NORMALS: Soft to palpation PALPATION: Yes Soft to palpation Neuro: SENSORIUM/ORIENTATION: Yes obtunded Skin: GENERAL SKIN EXAM: pallor Procedures Intubation Laryngoscope: fiber optic video scope ET Tube Size: 8 ET Tube Uncuffed: No Tube Secured Depth (cm): 23 Tube Secured Location: teeth Tube Placement Confirmation: visualized tube passing through cords, equal breath sounds bilaterally and confirmation by capnometry (Color change) Patient Tolerated Procedure: no complications Additional Comments: Performed emergently during CPR Course Vital Signs: Vital signs: Vital Signs Temperature 98.8 F 03/22/23 19:24 Pulse Rate 65 03/22/23 19:24 Respiratory Rate 16 03/22/23 19:24 Blood Pressure 118/51 03/22/23 19:24 Pulse Oximetry 98 03/22/23 19:24 Oxygen Delivery Me thod Room Air 03/22/23 19:24 MDM - Chest Pain Medical Decision Making 82-year-old gentleman presenting with chest pain. Initial EKG demonstrates atrial fibrillation with no STEMI. Upon initial evaluation patient has had acute change, thready pulse identified with agonal respirations. Patient brought to resuscitation room and found to have PEA at which point CPR was started. High-quality CPR performed with recurrent PEA. Medications per code flowsheet. Patient intubated as noted. Despite continued CPR we were not successful in obtaining return of spontaneous relation. [id number] ultrasound reveals no cardiac activity. I discussed current status and prognosis with family. We will proceed with stopping resuscitative efforts. I expressed my condolences. Time of 1952. Likely cardiac event. Lab Data 03/22/23 19:35 03/22/23 19:35 Laboratory Results WBC 11.4 10^3/uL (4.0-10.0) H 03/22/23 19:35 RBC 4.51 10^6/uL (4.1-5.3) 03/22/23 19:35 Hgb 13.9 g/dL (11.7-16.6) 03/22/23 19:35 Hct 42.9 % (42.0-52.0) 03/22/23 19:35 MCV 95.1 fl (80-94) H 03/22/23 19:35 MCH 30.8 pg (28.0-34.0) 03/22/23 19:35 MCHC 32.4 g/dL (30.0-36.0) 03/22/23 19:35 RDW 13.6 % (12.1-15.1) 03/22/23 19:35 Plt Count 145 10^3/cmm (130-400) 03/22/23 19:35 MPV 10.6 fL (7.4-10.4) H 03/22/23 19:35 Neut % (Auto) 56.9 % 03/22/23 19:35 Lymph % (Auto) 25.7 % 03/22/23 19:35 [place] % (Auto) 16.3 % 03/22/23 19:35 Eos % (Auto) 0.4 % 03/22/23 19:35 Baso % (Auto) 0.4 % 03/22/23 19:35 Neut # (Auto) 6.50 10^3/uL (1.8-7.7) 03/22/23 19:35 Lymph # (Auto) 2.9 10^3/uL (0.8-4.8) 03/22/23 19:35 [place] # (Auto) 1.9 10^3/uL (0.2-0.9) H 03/22/23 19:35 Eos # (Auto) 0.0 10^3/uL (0.0-0.8) 03/22/23 19:35 Baso # (Auto) 0.1 10^3/uL (0.0-0.1) 03/22/23 19:35 Nucleated RBC % (auto) 0 % 03/22/23 19:35 Nucleated RBCs # 0.0 /100WBC 03/22/23 19:35 Sodium 142 mmol/L (136-145) 03/22/23 19:35 Potassium 4.3 mmol/L (3.5-5.1) 03/22/23 19:35 Chloride 103 mmol/L (98-107) 03/22/23 19:35 Carbon Dioxide 25 mmol/L (22-29) 03/22/23 19:35 Anion Gap 18.3 (5-19) 03/22/23 19:35 BUN 28 mg/dL (8-23) H 03/22/23 19:35 Creatinine 1.4 mg/dL (0.7-1.2) H 03/22/23 19:35 GFR Calculation Not Reportable 03/22/23 19:35 Glucose 139 mg/dL (65-115) H 03/22/23 19:35 Calculated Osmolality 302 mOsm/kg (285-295) H 03/22/23 19:35 Calcium 8.7 mg/dL (8.5-10.5) 03/22/23 19:35 Total Bilirubin 1.0 mg/dL (0.15-1.2) 03/22/23 19:35 AST 17 U/L (0-40) 03/22/23 19:35 ALT 11 U/L (0-41) 03/22/23 19:35 Alkaline Phosphatase 64 U/L (40-130) 03/22/23 19:35 Troponin T Baseline 46 ng/L (0-15) H 03/22/23 19:35 NT-Pro-B Natriuret Pep 5225 pg/mL (0-450) H 03/22/23 19:35 Total Protein 6.6 g/dL (6.6-8.7) 03/22/23 19:35 Albumin 4.3 g/dL (3.5-5.2) 03/22/23 19:35 Globulin 2.3 g/dL (1.3-4.6) 03/22/23 19:35 Lipase 19 U/L (13-60) 03/22/23 19:35 Critical Care Time Critical Care Time: Critical Care Time: Yes Total Critical Care Time: 32 Attestation: Due to a high probability of clinically significant, possibly life threatening deterioration, the patient required my highest level of attention and preparedness to intervene emergently and I personally spent this critical care time directly and personally managing the patient. This critical care time included obtaining a history; examining the patient; pulse oximetry; ordering and review of laboratory and imaging studies; arranging urgent treatment with development of a management plan; evaluation of patient's response to treatment; frequent reassessment; and, discussions with other providers as applicable. It was exclusive of separately billable procedures. Primary system involved is cardiopulmonary Discharge Plan Discharge Patient Disposition: Clinical Impression: Chest pain, Cardiac arrest Condition: Prescriptions: No Action montelukast [Singulair] 10 mg tablet 10 mg PO BEDTIME PreserVision AREDS [id number] capsule 1 cap PO BID diphenoxylate-atropine [Lomotil] 2.5-0.025 mg tablet 1 tab PO BID paroxetine HCl [Paxil] 20 mg tablet 20 mg PO QAM potassium chloride 10 mEq tablet extended release 10 meq PO BEDTIME Qty: 90 3RF Rx Instructions: Refill for 1 yr sent on 04/08/22 - please update your records Eliquis 5 mg tablet 5 mg PO BID Qty: 180 3RF Lasix 40 mg tablet 60 mg PO DAILY Qty: 135 3RF Rx Instructions: This was sent on 06/20/22, please update your records & check your hold orders metoprolol tartrate 25 mg tablet 12.5 mg PO BID Qty: 90 3RF Entresto 24-26 mg tablet 1 tab PO BID Qty: 180 3RF Rx Instructions: Dose reduced r/t syncopal episode spironolactone 25 mg tablet 25 mg PO DAILY@15 Qty: 90 3RF Crestor 10 mg tablet 10 mg PO QPM Qty: 90 3RF Discharge Orders: Discharge ED (Routine); Ordered 03/22/23 Ordered By: Zachary Worthy Referrals: Pedro Wang MD [Primary Care Provider] - Probable Cause of Probable cause of : Myocardial Infarction Coding Level of Care Code ED Mortgage Loan Officer Originator for Marybeth Fong
[2023-03-22 19:24] VITALS: BP 118/51; PULSE 65; RESP 16; TEMP 37.1; O2SAT 98
--- NOTE | 2023-03-22 19:30 | ECG_ITS ---
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 Measurements Intervals [place] Rate: 49 P: 0 SC: 0 QRS: -38 QRSD: 142 T: 0 QT: 404 QTc: 368 Interpretive Statements UNCERTAIN REGULAR RHYTHM BECAUSE OF BASELINE ARTIFACT LEFT AXIS DEVIATION [QRS AXIS < -30] INTRAVENTRICULAR CONDUCTION DELAY [130+ ms QRS DURATION] Compared to ECG 02/07/2022 16:12:23 Left-axis deviation now present Intraventricular conduction delay now present Atrial fibrillation no longer present Myocardial infarct finding no longer present Electronically Signed On 03-23-2023 14:00:38 CDT by Norman Sheppard M.D. [email or web address]
[2023-03-22 19:44] LABS: Basophils # 0.1 10^3/uL (0.0-0.1); Basophils % 0.4 %; Eosinophils % 0.4 %; Hematocrit 42.9 % (42.0-52.0); Hemoglobin 13.9 g/dL (11.7-16.6); Lymphocytes # 2.9 10^3/uL (0.8-4.8); Lymphocytes % 25.7 %; Mean Corpuscular HGB Conc 32.4 g/dL (30.0-36.0); Mean Corpuscular Hemoglobin 30.8 pg (28.0-34.0); Mean Corpuscular Volume 95.1 fl (80-94); Mean Platelet Volume 10.6 fL (7.4-10.4); Monocytes # 1.9 10^3/uL (0.2-0.9); Monocytes % 16.3 %; Neutrophils % 56.9 %; Nucleated Red Blood Cells % 0 %; Platelet Count 145 10^3/cmm (130-400); Red Blood Count 4.51 10^6/uL (4.1-5.3); Red Cell Distribution Width 13.6 % (12.1-15.1); White Blood Count 11.4 10^3/uL (4.0-10.0)
[2023-03-22 20:07] LABS: Troponin(5th) Baseline 46 ng/L (0-15)
--- NOTE | 2023-03-22 20:10 | PC.NURSE ---
2010 - [facility] has [facility] patient's body.
[2023-03-22 20:12] LABS: Alanine Aminotransferase 11 U/L (0-41); Albumin Level 4.3 g/dL (3.5-5.2); Alkaline Phosphatase 64 U/L (40-130); Anion Gap 18.3 (5-19); Aspartate Amino Transferase 17 U/L (0-40); Blood Urea Nitrogen 28 mg/dL (8-23); Calcium 8.7 mg/dL (8.5-10.5); Carbon Dioxide 25 mmol/L (22-29); Chloride 103 mmol/L (98-107); Globulin 2.3 g/dL (1.3-4.6); Glucose 139 mg/dL (65-115); Lipase 19 U/L (13-60); NT Pro B Type Natriuretic Pept 5225 pg/mL (0-450); Osmolality Calculated 302 mOsm/kg (285-295); Potassium 4.3 mmol/L (3.5-5.1); Sodium 142 mmol/L (136-145); Total Protein 6.6 g/dL (6.6-8.7)
--- NOTE | 2023-03-22 20:24 | PC.NURSE ---
2012- [facility] has been notified of patient . Patient is a candidate for donation.
--- NOTE | 2023-03-22 21:43 | PC.NURSE ---
MTS called & said family had refused donation, may release body to home.
--- NOTE | 2023-03-22 21:48 | PC.NURSE ---
Daughter came to ER and took possession of patients keys and a ring from finger.
--- NOTE | 2023-03-22 22:50 | PC.NURSE ---
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 Remainder of patient's belongings have been sent with [facility].
== END 2023-03-22 21:20 | disposition expired ==
PROVIDERS: Emergency Provider Emergency Medicine; PCP Family Medicine
DX: I46.9 Cardiac arrest, cause unspecified (principal); R07.9 Chest pain, unspecified; I48.91 Unspecified atrial fibrillation
CPT/HCPCS: 80053; 83690; 83880; 84484; 85025; 93005; 99284; J0171; J3490